=== PATIENT | male | born 1955 | race Caucasian/White ===

== ENCOUNTER 2018-12-29 18:19 | Inpatient (IN) ==
[2018-12-29] MEDS ORDERED: SODIUM CHLORIDE 0.9% 1,000 ML IV STA ×2 (19:32→21:17)
[2018-12-29 19:47] LABS: Basophils # 0.1 10*3/uL (0.0-0.2); Basophils % 0.5 % (0.0-0.8); Eosinophils % 0.2 % (0.00-10.9); Hemoglobin 13.1 GM/DL (14.0-18.0); Immature Granulocytes % 0.4 %; Immature Granulocytes Absolute 0.04 #; Lymphocytes # 2.4 10*3/uL (1.4-4.0); Lymphocytes % 21.7 % (21.2-54.2); Mean Corpuscular HGB Conc 32.8 GM/DL (32-36); Mean Corpuscular Volume 98.3 FL (87-102); Mean Platelet Volume 8.8 FL (9.6-12.0); Neutrophils % 71.2 % (38.7-73.9); Platelet Count 264 T/CUMM (130-400); Red Blood Count 4.07 MC/CUMM (3.8-5.5); Red Cell Distribution Width 13.2 % (9.3-17.3)
[2018-12-29 19:58] LABS: Albumin 3.9 G/DL (3.4-5.0); Bilirubin,Total 0.4 MG/DL (0.2-1.0); Total Protein 7.1 G/DL (6.4-8.3)
[2018-12-29 20:22] LABS: Apearance,Urine CLOUDY (Clear); Bilirubin,Urine Negative (Negative); Blood, Urine Negative (Negative); Glucose,Urine (UA) >=500 mg/dL (Negative); Hyaline Casts,Urine 16 /LPF (0-3); Ketones,Urine 5 mg/dL (Negative); Mucus,Urine Occasional /LPF (Occasional); Nitrite,Urine Negative (Negative); Protein,Urine 30 MG/DL; RBC,Urine 2 /HPF (0-4); Squamous Epithelial Cell,Urine Few /HPF (0-10); Urine Specific Gravity 1.018 (1.001-1.035); WBC,Urine 18 /HPF (0-6)
[2018-12-29 20:23] LABS: Urine Color Dark yellow (Yellow)
[2018-12-29 20:28] LABS: Barbiturates Screen,Urine Negative (Negative); Benzodiazepines Screen,Urine Negative (Negative); Cannabinoid Screen,Urine Negative (Negative); Opiate Screen,Urine Negative (Negative); Phencyclidine Screen,Urine Negative (Negative)
[2018-12-30] MEDS ORDERED: ACETAMINOPHEN 325 MG TABLET PO PRN (02:02)
[2018-12-30] MEDS ORDERED: DEXTROSE 50% 25 GM/50 ML VIAL IV PRN (02:02)
[2018-12-30] MEDS ORDERED: GLUCAGON 1 MG VIAL IM PRN (02:02)
[2018-12-30] MEDS ORDERED: ONDANSETRON 4 MG/2 ML VIAL IV PRN (02:02)
[2018-12-30] MEDS: SODIUM CHLORIDE 0.9% 1,000 ML IV SCH ×3 (02:14→16:42)
[2018-12-30] MEDS: cefTRIAXone 1,000 MG in SYRINGE 1 EACH IV SCH (02:17)
[2018-12-30 04:52] LABS: Basophils # 0.1 10*3/uL (0.0-0.2); Basophils % 0.6 % (0.0-0.8); Eosinophils # 0.1 10*3/uL (0.0-0.87); Hematocrit 40.2 VOL% (42.0-52.0); Immature Granulocytes % 0.3 %; Immature Granulocytes Absolute 0.03 #; Lymphocytes # 3.5 10*3/uL (1.4-4.0); Lymphocytes % 37.2 % (21.2-54.2); Mean Corpuscular HGB Conc 32.3 GM/DL (32-36); Mean Platelet Volume 8.9 FL (9.6-12.0); Monocytes % 8.6 % (1.7-12.7); Neutrophils % 52.3 % (38.7-73.9); Platelet Count 224 T/CUMM (130-400); Red Blood Count 4.06 MC/CUMM (3.8-5.5); Red Cell Distribution Width 13.2 % (9.3-17.3); White Blood Count 9.3 T/CUMM (4-12)
[2018-12-30] MEDS: INSULIN LISPRO 100 UNIT/ML SUBCUT SCH ×5 (05:00→21:17)
[2018-12-30 05:30] LABS: Calcium 8.8 MG/DL (8.5-10.1); Osmolality,Calculated 284.3 MOS/KG (273-304); Thyroid Stimulating Hormone 0.794 uIU/ml (0.358-3.74)
[2018-12-30] MEDS ORDERED: glipiZIDE 10 MG TABLET PO SCH (07:30)
[2018-12-30] MEDS: GABAPENTIN 400 MG CAPSULE PO SCH ×2 (08:59→21:13)
[2018-12-30] MEDS: INSULIN ASPART PROTAMINE/ASPART 70/30 100 UNIT/ML SUBCUT SCH ×2 (08:59→21:13)
[2018-12-31] MEDS: SODIUM CHLORIDE 0.9% 1,000 ML IV SCH (01:52)
[2018-12-31] MEDS: cefTRIAXone 1,000 MG in SYRINGE 1 EACH IV SCH (01:52)
[2018-12-31 04:51] LABS: Basophils # 0.1 10*3/uL (0.0-0.2); Basophils % 0.4 % (0.0-0.8); Eosinophils # 0.1 10*3/uL (0.0-0.87); Eosinophils % 0.5 % (0.00-10.9); Hematocrit 38.8 VOL% (42.0-52.0); Hemoglobin 12.5 GM/DL (14.0-18.0); Immature Granulocytes % 0.4 %; Immature Granulocytes Absolute 0.05 #; Lymphocytes # 2.6 10*3/uL (1.4-4.0); Lymphocytes % 22.2 % (21.2-54.2); Mean Corpuscular HGB Conc 32.2 GM/DL (32-36); Mean Platelet Volume 8.9 FL (9.6-12.0); Monocytes % 5.7 % (1.7-12.7); Neutrophils % 70.8 % (38.7-73.9); Platelet Count 208 T/CUMM (130-400); Red Blood Count 3.92 MC/CUMM (3.8-5.5); Red Cell Distribution Width 13.2 % (9.3-17.3); White Blood Count 11.5 T/CUMM (4-12)
[2018-12-31 05:10] LABS: Calcium 8.4 MG/DL (8.5-10.1)
[2018-12-31] MEDS: INSULIN LISPRO 100 UNIT/ML SUBCUT SCH ×2 (09:02→11:54)
[2018-12-31] MEDS: INSULIN ASPART PROTAMINE/ASPART 70/30 100 UNIT/ML SUBCUT SCH (09:03)
[2018-12-31] MEDS: GABAPENTIN 400 MG CAPSULE PO SCH (09:03)
[2018-12-31 11:37] VITALS: BP 133/63
== END 2018-12-31 15:05 | disposition home or self-care (01) | DRG 683 ==
LOC: N.ED 18:19 → N.EDINP 12-30 01:08 → N.2E 12-30 01:25
PROVIDERS: ADMIT Internal Medicine; ATTEND Internal Medicine

== ENCOUNTER 2019-04-25 14:52 | Inpatient (IN) ==
[2019-04-25 16:52] LABS: Basophils # 0.1 10*3/uL (0.0-0.2); Basophils % 0.5 % (0.0-0.8); Eosinophils % 0.1 % (0.00-10.9); Hematocrit 39.1 VOL% (42.0-52.0); Hemoglobin 12.8 GM/DL (14.0-18.0); Immature Granulocytes % 0.2 %; Immature Granulocytes Absolute 0.02 #; Lymphocytes % 26.9 % (21.2-54.2); Mean Corpuscular HGB Conc 32.7 GM/DL (32-36); Mean Corpuscular Volume 98.7 FL (87-102); Monocytes % 6.6 % (1.7-12.7); Neutrophils % 65.7 % (38.7-73.9); Platelet Count 255 T/CUMM (130-400); Red Blood Count 3.96 MC/CUMM (3.8-5.5); Red Cell Distribution Width 12.9 % (9.3-17.3); White Blood Count 11.3 T/CUMM (4-12)
[2019-04-25 17:12] LABS: Calcium 8.9 MG/DL (8.5-10.1); Osmolality,Calculated 271.2 MOS/KG (273-304); Uric Acid 3.8 MG/DL (3.5-7.2)
[2019-04-25] MEDS ORDERED: CEFTAROLINE 600 MG in SODIUM CHLORIDE 0.9% 100 ML IV STA (18:42)
[2019-04-25] MEDS ORDERED: ACETAMINOPHEN 325 MG TABLET PO PRN (20:30)
[2019-04-25] MEDS ORDERED: DEXTROSE 50% 25 GM/50 ML VIAL IV PRN (20:30)
[2019-04-25] MEDS ORDERED: PROMETHAZINE 25 MG TABLET PO PRN (20:30)
[2019-04-25] MEDS ORDERED: MORPHINE 4 MG/1 ML VIAL IV PRN (20:30)
[2019-04-25] MEDS ORDERED: ONDANSETRON 4 MG/2 ML VIAL IV PRN (20:30)
[2019-04-25] MEDS ORDERED: GLUCAGON 1 MG VIAL IM PRN (20:30)
[2019-04-25] MEDS: DOCUSATE SODIUM 100 MG CAPSULE PO SCH (22:02)
[2019-04-25] MEDS: PIPERACILLIN/TAZOBACTAM 3,375 MG in SODIUM CHLORIDE 0.9% 100 ML IV SCH (22:02)
[2019-04-26] MEDS: INSULIN REGULAR 100 UNIT/ML SUBCUT SCH ×4 (00:46→17:23)
[2019-04-26] MEDS: PIPERACILLIN/TAZOBACTAM 3,375 MG in SODIUM CHLORIDE 0.9% 100 ML IV SCH ×3 (05:32→21:50)
[2019-04-26 07:12] LABS: Basophils # 0.1 10*3/uL (0.0-0.2); Basophils % 0.9 % (0.0-0.8); Eosinophils # 0.1 10*3/uL (0.0-0.87); Hematocrit 36.1 VOL% (42.0-52.0); Hemoglobin 11.9 GM/DL (14.0-18.0); Immature Granulocytes % 0.3 %; Immature Granulocytes Absolute 0.02 #; Lymphocytes # 3.2 10*3/uL (1.4-4.0); Lymphocytes % 40.6 % (21.2-54.2); Mean Corpuscular Volume 98.6 FL (87-102); Monocytes % 10.2 % (1.7-12.7); Platelet Count 223 T/CUMM (130-400); Red Blood Count 3.66 MC/CUMM (3.8-5.5); Red Cell Distribution Width 12.8 % (9.3-17.3); White Blood Count 7.8 T/CUMM (4-12)
[2019-04-26 07:27] LABS: Calcium 8.5 MG/DL (8.5-10.1); Osmolality,Calculated 272.8 MOS/KG (273-304)
[2019-04-26] MEDS: INSULIN ASPART PROTAMINE/ASPART 70/30 100 UNIT/ML SUBCUT SCH ×2 (09:18→17:24)
[2019-04-26] MEDS: DOCUSATE SODIUM 100 MG CAPSULE PO SCH ×2 (09:18→20:17)
[2019-04-26] MEDS: GABAPENTIN 400 MG CAPSULE PO SCH ×2 (09:18→20:21)
[2019-04-26] MEDS: glipiZIDE 10 MG TABLET PO SCH (09:18)
[2019-04-26] MEDS: PANTOPRAZOLE 40 MG TABLET PO SCH (09:19)
[2019-04-27] MEDS: INSULIN REGULAR 100 UNIT/ML SUBCUT SCH ×4 (00:56→17:53)
[2019-04-27] MEDS: PIPERACILLIN/TAZOBACTAM 3,375 MG in SODIUM CHLORIDE 0.9% 100 ML IV SCH (05:07)
[2019-04-27 05:54] LABS: Basophils # 0.1 10*3/uL (0.0-0.2); Basophils % 0.6 % (0.0-0.8); Eosinophils # 0.1 10*3/uL (0.0-0.87); Eosinophils % 0.6 % (0.00-10.9); Hematocrit 36.5 VOL% (42.0-52.0); Immature Granulocytes % 0.2 %; Immature Granulocytes Absolute 0.02 #; Lymphocytes # 3.7 10*3/uL (1.4-4.0); Lymphocytes % 36.5 % (21.2-54.2); Mean Corpuscular HGB Conc 32.9 GM/DL (32-36); Mean Corpuscular Volume 98.4 FL (87-102); Mean Platelet Volume 9.4 FL (9.6-12.0); Monocytes % 9.9 % (1.7-12.7); Neutrophils % 52.2 % (38.7-73.9); Platelet Count 247 T/CUMM (130-400); Red Blood Count 3.71 MC/CUMM (3.8-5.5); Red Cell Distribution Width 12.6 % (9.3-17.3)
[2019-04-27 06:29] LABS: Calcium 8.6 MG/DL (8.5-10.1); Osmolality,Calculated 276.8 MOS/KG (273-304)
[2019-04-27] MEDS ORDERED: VANCOMYCIN INJ 1,000 MG in SODIUM CHLORIDE 0.9% 250 ML IV SCH (08:00)
[2019-04-27] MEDS: INSULIN ASPART PROTAMINE/ASPART 70/30 100 UNIT/ML SUBCUT SCH ×2 (09:05→17:04)
[2019-04-27] MEDS: glipiZIDE 10 MG TABLET PO SCH (09:06)
[2019-04-27] MEDS: PANTOPRAZOLE 40 MG TABLET PO SCH (09:06)
[2019-04-27] MEDS: GABAPENTIN 400 MG CAPSULE PO SCH ×2 (09:06→21:19)
[2019-04-27] MEDS: DOCUSATE SODIUM 100 MG CAPSULE PO SCH ×2 (09:06→21:19)
[2019-04-27] MEDS: VANCOMYCIN INJ 1,250 MG in SODIUM CHLORIDE 0.9% 250 ML IV SCH ×2 (09:08→21:18)
[2019-04-27] MEDS: cefTRIAXone 1,000 MG in SYRINGE 1 EACH IV SCH (09:09)
[2019-04-28] MEDS: INSULIN REGULAR 100 UNIT/ML SUBCUT SCH ×4 (00:13→18:21)
[2019-04-28 05:53] LABS: Basophils # 0.1 10*3/uL (0.0-0.2); Basophils % 0.6 % (0.0-0.8); Eosinophils # 0.1 10*3/uL (0.0-0.87); Eosinophils % 0.7 % (0.00-10.9); Hematocrit 33.4 VOL% (42.0-52.0); Hemoglobin 11.1 GM/DL (14.0-18.0); Immature Granulocytes % 0.2 %; Immature Granulocytes Absolute 0.02 #; Lymphocytes % 33.8 % (21.2-54.2); Mean Corpuscular HGB Conc 33.2 GM/DL (32-36); Mean Corpuscular Volume 97.4 FL (87-102); Mean Platelet Volume 9.3 FL (9.6-12.0); Monocytes % 9.8 % (1.7-12.7); Neutrophils % 54.9 % (38.7-73.9); Platelet Count 221 T/CUMM (130-400); Red Blood Count 3.43 MC/CUMM (3.8-5.5); Red Cell Distribution Width 12.9 % (9.3-17.3); White Blood Count 8.8 T/CUMM (4-12)
[2019-04-28 06:53] LABS: Calcium 8.5 MG/DL (8.5-10.1); Osmolality,Calculated 277.7 MOS/KG (273-304)
[2019-04-28] MEDS: INSULIN ASPART PROTAMINE/ASPART 70/30 100 UNIT/ML SUBCUT SCH ×2 (07:58→17:14)
[2019-04-28] MEDS: cefTRIAXone 1,000 MG in SYRINGE 1 EACH IV SCH (09:25)
[2019-04-28] MEDS: VANCOMYCIN INJ 1,250 MG in SODIUM CHLORIDE 0.9% 250 ML IV SCH ×2 (09:26→23:42)
[2019-04-28] MEDS: glipiZIDE 10 MG TABLET PO SCH (09:44)
[2019-04-28] MEDS: DOCUSATE SODIUM 100 MG CAPSULE PO SCH ×2 (09:45→21:33)
[2019-04-28] MEDS: PANTOPRAZOLE 40 MG TABLET PO SCH (09:45)
[2019-04-28] MEDS: GABAPENTIN 400 MG CAPSULE PO SCH ×2 (09:45→21:33)
[2019-04-28] MEDS: VANCOMYCIN INJ 1,000 MG in SODIUM CHLORIDE 0.9% 250 ML IV SCH (23:51)
[2019-04-29] MEDS: INSULIN REGULAR 100 UNIT/ML SUBCUT SCH ×3 (01:01→13:45)
[2019-04-29 05:54] LABS: Basophils # 0.1 10*3/uL (0.0-0.2); Basophils % 0.9 % (0.0-0.8); Eosinophils # 0.2 10*3/uL (0.0-0.87); Eosinophils % 1.9 % (0.00-10.9); Hematocrit 32.7 VOL% (42.0-52.0); Hemoglobin 10.9 GM/DL (14.0-18.0); Immature Granulocytes % 0.1 %; Immature Granulocytes Absolute 0.01 #; Lymphocytes # 3.3 10*3/uL (1.4-4.0); Lymphocytes % 41.1 % (21.2-54.2); Mean Corpuscular HGB Conc 33.3 GM/DL (32-36); Mean Corpuscular Volume 97.3 FL (87-102); Mean Platelet Volume 9.1 FL (9.6-12.0); Monocytes % 10.3 % (1.7-12.7); Neutrophils % 45.7 % (38.7-73.9); Platelet Count 228 T/CUMM (130-400); Red Blood Count 3.36 MC/CUMM (3.8-5.5); Red Cell Distribution Width 12.7 % (9.3-17.3)
[2019-04-29 06:20] LABS: Calcium 8.7 MG/DL (8.5-10.1); Osmolality,Calculated 281.1 MOS/KG (273-304)
[2019-04-29] MEDS: PANTOPRAZOLE 40 MG TABLET PO SCH (09:50)
[2019-04-29] MEDS: glipiZIDE 10 MG TABLET PO SCH (09:50)
[2019-04-29] MEDS: cefTRIAXone 1,000 MG in SYRINGE 1 EACH IV SCH (09:50)
[2019-04-29] MEDS: INSULIN ASPART PROTAMINE/ASPART 70/30 100 UNIT/ML SUBCUT SCH (09:50)
[2019-04-29] MEDS: DOCUSATE SODIUM 100 MG CAPSULE PO SCH (09:50)
[2019-04-29] MEDS: GABAPENTIN 400 MG CAPSULE PO SCH (09:50)
[2019-04-29] MEDS: VANCOMYCIN INJ 1,000 MG in SODIUM CHLORIDE 0.9% 250 ML IV SCH (09:51)
[2019-04-29 11:19] VITALS: BP 124/62
[2019-04-30] MEDS ORDERED: cefTRIAXone 2,000 MG in SYRINGE 1 EACH IV SCH (09:00)
== END 2019-04-29 15:45 | disposition home health service (06) | DRG 638 ==
LOC: N.ED 14:52 → N.EDINP 19:00 → N.5E 19:38
PROVIDERS: ADMIT Family Medicine; ATTEND Family Medicine

== ENCOUNTER 2019-07-27 12:29 | Observation (INO) ==
[2019-07-27] MEDS ORDERED: SODIUM CHLORIDE 0.9% 1,000 ML IV STA (13:05)
[2019-07-27 13:16] LABS: Basophils # 0.1 10*3/uL (0.0-0.2); Basophils % 0.5 % (0.0-0.8); Eosinophils % 0.2 % (0.00-10.9); Hematocrit 42.6 VOL% (42.0-52.0); Immature Granulocytes % 0.4 %; Immature Granulocytes Absolute 0.04 #; Lymphocytes # 2.4 10*3/uL (1.4-4.0); Lymphocytes % 24.1 % (21.2-54.2); Mean Corpuscular HGB Conc 32.9 GM/DL (32-36); Mean Corpuscular Volume 95.9 FL (87-102); Monocytes % 7.4 % (1.7-12.7); Neutrophils % 67.4 % (38.7-73.9); Platelet Count 287 T/CUMM (130-400); Red Blood Count 4.44 MC/CUMM (3.8-5.5); Red Cell Distribution Width 13.1 % (9.3-17.3); White Blood Count 9.9 T/CUMM (4-12)
[2019-07-27 13:31] LABS: Albumin 3.7 G/DL (3.4-5.0); Bilirubin,Total 0.4 MG/DL (0.2-1.0); Calcium 9.3 MG/DL (8.5-10.1); Osmolality,Calculated 271.7 MOS/KG (273-304); Total Protein 7.5 G/DL (6.4-8.3)
[2019-07-27] MEDS ORDERED: MEROPENEM 1,000 MG in SODIUM CHLORIDE 0.9% 100 ML IV STA (15:16)
[2019-07-27] MEDS ORDERED: GLUCAGON 1 MG VIAL IM PRN (15:25)
[2019-07-27] MEDS ORDERED: ONDANSETRON 4 MG/2 ML VIAL IV PRN (15:25)
[2019-07-27] MEDS ORDERED: DEXTROSE 10% 25 GM/250 ML BAG IV PRN (15:25)
[2019-07-27] MEDS ORDERED: ACETAMINOPHEN 325 MG TABLET PO PRN (15:25)
[2019-07-27 15:30] LABS: Apearance,Urine CLEAR (Clear); Bilirubin,Urine Negative (Negative); Blood, Urine Small mg/dL (Negative); Glucose,Urine (UA) >=500 mg/dL (Negative); Ketones,Urine Negative (Negative); Nitrite,Urine Negative (Negative); Protein,Urine Negative; RBC,Urine 1 /HPF (0-4); Sperm,Urine Occasional /HPF (Negative); Squamous Epithelial Cell,Urine Occasional /HPF (0-10); Urine Color Straw (Yellow); Urine Specific Gravity 1.007 (1.001-1.035); Urine Urobilinogen < 2.0 EU/DL (0.2-1.0); WBC,Urine 1 /HPF (0-6)
[2019-07-27] MEDS ORDERED: oxyCODONE/ACETAMINOPHEN 5-325 MG TABLET PO PRN (16:12)
[2019-07-27] MEDS ORDERED: ALBUTEROL/IPRATROPIUM 3 ML NEB RESP TX PRN (17:32)
[2019-07-27] MEDS ORDERED: hydrALAZINE 20 MG/1 ML VIAL IV PRN (17:32)
[2019-07-27] MEDS: INSULIN REGULAR 100 UNIT/ML SUBCUT SCH ×2 (17:58→22:27)
[2019-07-27] MEDS ORDERED: INFLUENZA VIRUS VACCINE 0.5 ML SYRINGE IM ONE (18:16)
[2019-07-27] MEDS: ENOXAPARIN 40 MG/0.4 ML SYRINGE SUBCUT SCH (22:33)
[2019-07-27] MEDS: MEROPENEM 500 MG in SODIUM CHLORIDE 0.9% 100 ML IV SCH (23:56)
[2019-07-28] MEDS: MEROPENEM 500 MG in SODIUM CHLORIDE 0.9% 100 ML IV SCH ×2 (05:38→10:31)
[2019-07-28 07:24] LABS: Basophils # 0.1 10*3/uL (0.0-0.2); Basophils % 0.7 % (0.0-0.8); Eosinophils % 0.2 % (0.00-10.9); Hematocrit 35.7 VOL% (42.0-52.0); Hemoglobin 12.1 GM/DL (14.0-18.0); Immature Granulocytes % 0.2 %; Immature Granulocytes Absolute 0.02 #; Lymphocytes % 33.9 % (21.2-54.2); Mean Corpuscular HGB Conc 33.9 GM/DL (32-36); Mean Corpuscular Volume 93.2 FL (87-102); Mean Platelet Volume 9.1 FL (9.6-12.0); Red Blood Count 3.83 MC/CUMM (3.8-5.5); Red Cell Distribution Width 13.2 % (9.3-17.3); White Blood Count 8.9 T/CUMM (4-12)
[2019-07-28 07:27] LABS: Platelet Count 227 T/CUMM (130-400)
[2019-07-28 07:33] LABS: Albumin 2.8 G/DL (3.4-5.0); Bilirubin,Total 0.6 MG/DL (0.2-1.0); Calcium 8.2 MG/DL (8.5-10.1); Total Protein 6.3 G/DL (6.4-8.3)
[2019-07-28] MEDS: INSULIN REGULAR 100 UNIT/ML SUBCUT SCH ×4 (07:46→21:39)
[2019-07-28] MEDS: PANTOPRAZOLE 40 MG TABLET PO SCH (09:50)
[2019-07-28] MEDS: PIPERACILLIN/TAZOBACTAM 3,375 MG in SODIUM CHLORIDE 0.9% 100 ML IV SCH ×2 (13:44→21:44)
[2019-07-28] MEDS: ENOXAPARIN 40 MG/0.4 ML SYRINGE SUBCUT SCH (21:39)
[2019-07-29] MEDS: PIPERACILLIN/TAZOBACTAM 3,375 MG in SODIUM CHLORIDE 0.9% 100 ML IV SCH ×2 (06:37→15:47)
[2019-07-29 06:40] LABS: Basophils # 0.1 10*3/uL (0.0-0.2); Basophils % 0.9 % (0.0-0.8); Eosinophils # 0.1 10*3/uL (0.0-0.87); Eosinophils % 0.6 % (0.00-10.9); Hematocrit 39.5 VOL% (42.0-52.0); Hemoglobin 13.2 GM/DL (14.0-18.0); Immature Granulocytes % 0.3 %; Immature Granulocytes Absolute 0.03 #; Lymphocytes # 4.4 10*3/uL (1.4-4.0); Lymphocytes % 46.7 % (21.2-54.2); Mean Corpuscular HGB Conc 33.4 GM/DL (32-36); Mean Corpuscular Volume 94.3 FL (87-102); Mean Platelet Volume 9.3 FL (9.6-12.0); Monocytes % 8.3 % (1.7-12.7); Neutrophils % 43.2 % (38.7-73.9); Platelet Count 271 T/CUMM (130-400); Red Blood Count 4.19 MC/CUMM (3.8-5.5); Red Cell Distribution Width 13.2 % (9.3-17.3); White Blood Count 9.3 T/CUMM (4-12)
[2019-07-29 06:53] LABS: Calcium 9.2 MG/DL (8.5-10.1)
[2019-07-29 06:55] LABS: Risk Ratio 2.61
[2019-07-29 07:42] VITALS: BP 127/63
[2019-07-29] MEDS: PANTOPRAZOLE 40 MG TABLET PO SCH (10:28)
[2019-07-29] MEDS ORDERED: REGADENOSON 0.4 MG/5 ML SYRINGE IV ONE (10:44)
[2019-07-29] MEDS ORDERED: POTASSIUM CHLORIDE 20 MEQ TABLET PO ONE (11:02)
[2019-07-29] MEDS ORDERED: MAGNESIUM SULF RIDER 2 GM in PREMIX 1 EACH IV ONE (11:02)
[2019-07-29] MEDS: INSULIN REGULAR 100 UNIT/ML SUBCUT SCH ×2 (12:47→12:48)
[2019-07-29] MEDS ORDERED: glipiZIDE 10 MG TABLET PO SCH (16:30)
[2019-07-29] MEDS ORDERED: ATORVASTATIN 80 MG TABLET PO SCH (21:00)
[2019-07-29] MEDS ORDERED: GABAPENTIN 400 MG CAPSULE PO SCH (21:00)
[2019-07-30] MEDS ORDERED: INSULIN NPH 100 UNIT/ML SUBCUT SCH (08:00)
[2019-07-30] MEDS ORDERED: ASPIRIN EC 81 MG TABLET PO SCH (09:00)
== END 2019-07-29 16:50 | disposition home or self-care (01) ==
LOC: N.ED 12:29 → N.EDINP 12:29 → N.5E 16:07
PROVIDERS: ADMIT Internal Medicine; ATTEND Internal Medicine

== ENCOUNTER 2020-09-09 14:33 | Observation (INO) ==
[2020-09-09 16:44] LABS: Basophils # 0.1 10*3/uL (0.0-0.2); Basophils % 0.6 % (0.0-0.8); Eosinophils % 0.3 % (0.00-10.9); Hematocrit 44.9 VOL% (42.0-52.0); Immature Granulocytes % 0.5 %; Immature Granulocytes Absolute 0.05 #; Lymphocytes # 3.3 10*3/uL (1.4-4.0); Lymphocytes % 31.2 % (21.2-54.2); Mean Corpuscular HGB Conc 33.4 GM/DL (32-36); Mean Platelet Volume 9.2 FL (9.6-12.0); Monocytes % 6.9 % (1.7-12.7); Neutrophils % 60.5 % (38.7-73.9); Platelet Count 262 T/CUMM (130-400); Red Blood Count 4.63 MC/CUMM (3.8-5.5); Red Cell Distribution Width 12.9 % (9.3-17.3); White Blood Count 10.6 T/CUMM (4-12)
[2020-09-09 16:55] LABS: Albumin 3.8 G/DL (3.4-5.0); Bilirubin,Total 0.6 MG/DL (0.2-1.0); Calcium 9.4 MG/DL (8.5-10.1); Osmolality,Calculated 270.2 MOS/KG (273-304); Potassium 4.2 MMOL/L (3.5-5.1); Total Protein 7.7 G/DL (6.4-8.2)
[2020-09-09 17:18] LABS: Bilirubin,Urine Negative (Negative); Blood, Urine Negative (Negative); Glucose,Urine (UA) >=500 mg/dL (Negative); Ketones,Urine Negative (Negative); Nitrite,Urine Negative (Negative); Protein,Urine Negative; RBC,Urine 5 /HPF (0-4); Squamous Epithelial Cell,Urine Occasional /HPF (0-10); Urine Appearance CLEAR (Clear); Urine Color Yellow (Yellow); Urine Urobilinogen < 2.0 EU/DL (0.2-1.0); WBC,Urine 12 /HPF (0-6)
[2020-09-09 17:25] LABS: Hypochromasia 1+; Lymphocytes 31 % (20-55); Macrocytosis 1+; Reactive Lymphocytes 1+; Segmented Neutrophils 64 % (50-85); Total Cells Counted 100
[2020-09-09 17:26] LABS: Platelet Estimate Normal
[2020-09-09] MEDS ORDERED: cefTRIAXone 1,000 MG in SODIUM CHLORIDE 0.9% 100 ML IV STA (17:56)
[2020-09-09] MEDS ORDERED: SODIUM CHLORIDE 0.9% 1,000 ML IV STA (17:56)
[2020-09-09] MEDS ORDERED: GLUCAGON 1 MG VIAL IM PRN ×2 (18:55)
[2020-09-09] MEDS ORDERED: DEXTROSE 50% 25 GM/50 ML VIAL IV PRN ×2 (18:55)
[2020-09-09] MEDS ORDERED: ONDANSETRON 4 MG/2 ML VIAL IV PRN (18:55)
[2020-09-09] MEDS ORDERED: ACETAMINOPHEN 325 MG TABLET PO PRN (18:55)
[2020-09-09] MEDS: SODIUM CHLORIDE 0.9% 1,000 ML IV SCH (20:08)
[2020-09-09] MEDS ORDERED: ENOXAPARIN 40 MG/0.4 ML SYRINGE SUBCUT SCH (21:00)
[2020-09-09] MEDS: INSULIN REGULAR 100 UNIT/ML SUBCUT SCH (21:14)
[2020-09-09] MEDS: MECLIZINE 25 MG TABLET PO SCH (21:32)
[2020-09-09] MEDS: glipiZIDE 10 MG TABLET PO SCH (21:32)
[2020-09-09] MEDS: AMPICILLIN 500 MG CAPSULE PO SCH (21:58)
[2020-09-10] MEDS: SODIUM CHLORIDE 0.9% 1,000 ML IV SCH ×2 (05:03→12:03)
[2020-09-10 05:29] LABS: Basophils # 0.1 10*3/uL (0.0-0.2); Basophils % 0.8 % (0.0-0.8); Eosinophils # 0.1 10*3/uL (0.0-0.87); Eosinophils % 1.1 % (0.00-10.9); Hemoglobin 13.5 GM/DL (14.0-18.0); Immature Granulocytes % 0.3 %; Immature Granulocytes Absolute 0.03 #; Lymphocytes # 4.4 10*3/uL (1.4-4.0); Lymphocytes % 47.6 % (21.2-54.2); Mean Corpuscular HGB Conc 33.8 GM/DL (32-36); Mean Corpuscular Volume 96.6 FL (87-102); Mean Platelet Volume 9.1 FL (9.6-12.0); Monocytes % 9.1 % (1.7-12.7); Neutrophils % 41.1 % (38.7-73.9); Platelet Count 241 T/CUMM (130-400); Red Blood Count 4.14 MC/CUMM (3.8-5.5); Red Cell Distribution Width 12.6 % (9.3-17.3); White Blood Count 9.3 T/CUMM (4-12)
[2020-09-10 05:42] LABS: Calcium 8.4 MG/DL (8.5-10.1); Osmolality,Calculated 275.4 MOS/KG (273-304); Potassium 3.2 MMOL/L (3.5-5.1); VLDL CHOLESTEROL 26.2 MG/DL
[2020-09-10 05:52] LABS: Hypochromasia 1+; Microcytosis 1+; Platelet Estimate Adequate
[2020-09-10] MEDS ORDERED: POTASSIUM CHLORIDE RIDER 10 MEQ in PREMIX 1 EACH IV PRN (07:16)
[2020-09-10] MEDS: INSULIN REGULAR 100 UNIT/ML SUBCUT SCH ×2 (07:36→11:50)
[2020-09-10] MEDS: POTASSIUM CHLORIDE 20 MEQ TABLET PO PRN ×2 (08:55→11:35)
[2020-09-10] MEDS: AMPICILLIN 500 MG CAPSULE PO SCH (08:56)
[2020-09-10] MEDS: glipiZIDE 10 MG TABLET PO SCH (08:56)
[2020-09-10] MEDS: MECLIZINE 25 MG TABLET PO SCH (08:56)
[2020-09-10] MEDS ORDERED: FLUTICASONE 50 MCG NASAL SPRAY 16 GM BOTTLE BOTH NARES SCH (09:00)
[2020-09-10 12:10] VITALS: BP 148/81
== END 2020-09-10 12:30 | disposition home or self-care (01) ==
LOC: N.EDINP 14:33 → N.ED 14:33 → N.EDINP 20:22 → N.4E 21:03
PROVIDERS: ADMIT Family Medicine; ATTEND Family Medicine

== ENCOUNTER 2021-11-12 21:37 | Observation (INO) ==
[2021-11-12] MEDS ORDERED: SODIUM CHLORIDE 0.9% 1,000 ML IV STA (22:02)
[2021-11-12 22:27] LABS: Basophils % 0.3 % (0.0-0.8); Eosinophils % 0.3 % (0.00-10.9); Hemoglobin 11.8 GM/DL (14.0-18.0); Immature Granulocytes % 0.5 %; Immature Granulocytes Absolute 0.05 #; Lymphocytes # 2.2 10*3/uL (1.4-4.0); Lymphocytes % 19.6 % (21.2-54.2); Mean Corpuscular HGB Conc 33.7 GM/DL (32-36); Mean Corpuscular Volume 97.5 FL (87-102); Mean Platelet Volume 9.1 FL (9.6-12.0); Monocytes % 8.6 % (1.7-12.7); Neutrophils % 70.7 % (38.7-73.9); Platelet Count 242 T/CUMM (130-400); Red Blood Count 3.59 MC/CUMM (3.8-5.5); White Blood Count 11.1 T/CUMM (4-12)
[2021-11-12 22:46] LABS: Alanine Aminotransferase 29 U/L (16-61); Albumin 2.8 G/DL (3.4-5.0); Alkaline Phosphatase 128 U/L (45-117); Amylase 20 U/L (25-115); Aspartate Amino Transferase 17 U/L (0-37); Blood Urea Nitrogen 19 MG/DL (7-18); Calcium 9.2 MG/DL (8.5-10.1); Carbon Dioxide 24 MMOL/L (21-32); Chloride 102 MMOL/L (98-107); Glucose 189 MG/DL (74-106); Potassium 3.3 MMOL/L (3.5-5.1); Sodium 136 MMOL/L (136-145); Total Protein 6.8 G/DL (6.4-8.2)
[2021-11-12] MEDS ORDERED: MAGNESIUM SULF RIDER 2 GM/50 ML PREMIX IV STA (22:59)
[2021-11-12] MEDS ORDERED: POTASSIUM CHLORIDE 20 MEQ TABLET PO STA (22:59)
[2021-11-12] MEDS ORDERED: ONDANSETRON 4 MG/2 ML VIAL IV STA (22:59)
[2021-11-13] MEDS ORDERED: MORPHINE 2 MG/1 ML SYRINGE IV STA (02:06)
[2021-11-13 02:25] LABS: Glucose,Urine (UA) >=1000 mg/dL (Negative); Hyaline Casts,Urine 1 /LPF (0-3); Ketones,Urine Negative (Negative); Mucus,Urine Occasional /LPF (Occasional); Protein,Urine Negative (Negative); RBC,Urine 1 /HPF (0-4); Squamous Epithelial Cell,Urine Occasional /HPF (0-10); Urine Appearance Clear (Clear); Urine Color Yellow (Yellow); Urine pH 5.5 (4.5-8.0)
[2021-11-13 02:26] LABS: Bilirubin,Urine Negative (Negative); Blood, Urine Trace mg/dL (Negative); Nitrite,Urine Negative (Negative)
[2021-11-13] MEDS ORDERED: MAGNESIUM SULF RIDER 2 GM/50 ML PREMIX IV PRN (03:01)
[2021-11-13] MEDS ORDERED: MAGNESIUM SULF RIDER 4 GM/100 ML PREMIX IV PRN (03:01)
[2021-11-13] MEDS ORDERED: GLUCAGON 1 MG VIAL IM PRN (03:01)
[2021-11-13] MEDS ORDERED: SIMETHICONE CHEW 125 MG TABLET PO PRN (03:01)
[2021-11-13] MEDS ORDERED: ONDANSETRON 4 MG/2 ML VIAL IV PRN (03:01)
[2021-11-13] MEDS ORDERED: ACETAMINOPHEN 325 MG TABLET PO PRN (03:01)
[2021-11-13] MEDS ORDERED: POTASSIUM CHLORIDE RIDER 10 MEQ/100 ML PREMIX IV PRN (03:01)
[2021-11-13] MEDS ORDERED: MIDODRINE 5 MG TABLET PO SCH (03:13)
[2021-11-13] MEDS ORDERED: DEXTROSE 10% 250 ML BAG IV PRN (03:27)
[2021-11-13] MEDS ORDERED: BISACODYL 10 MG SUPP RECTAL ONE (04:00)
[2021-11-13] MEDS: SODIUM CHLORIDE 0.9% 1,000 ML IV SCH ×2 (04:00→15:00)
[2021-11-13 06:39] LABS: Basophils % 0.3 % (0.0-0.8); Eosinophils % 0.3 % (0.00-10.9); Hematocrit 35.1 VOL% (42.0-52.0); Hemoglobin 11.7 GM/DL (14.0-18.0); Immature Granulocytes % 0.5 %; Immature Granulocytes Absolute 0.06 #; Lymphocytes # 3.2 10*3/uL (1.4-4.0); Lymphocytes % 28.7 % (21.2-54.2); Mean Corpuscular HGB Conc 33.3 GM/DL (32-36); Mean Corpuscular Volume 98.9 FL (87-102); Mean Platelet Volume 8.8 FL (9.6-12.0); Monocytes % 8.9 % (1.7-12.7); Neutrophils % 61.3 % (38.7-73.9); Platelet Count 236 T/CUMM (130-400); Red Blood Count 3.55 MC/CUMM (3.8-5.5); Red Cell Distribution Width 13.1 % (9.3-17.3)
[2021-11-13 07:02] LABS: Calcium 8.9 MG/DL (8.5-10.1); Potassium 4.2 MMOL/L (3.5-5.1)
[2021-11-13 07:06] LABS: Lymphocytes 27 % (20-55); Total Cells Counted 100
[2021-11-13 07:07] LABS: Platelet Estimate Adequate
[2021-11-13] MEDS: ENOXAPARIN 40 MG/0.4 ML SYRINGE SUBCUT SCH (07:10)
[2021-11-13] MEDS: INSULIN REGULAR 100 UNIT/ML SUBCUT SCH ×4 (08:51→20:17)
[2021-11-13] MEDS: POTASSIUM CHLORIDE 20 MEQ TABLET PO SCH (09:42)
[2021-11-13] MEDS: DOCUSATE SODIUM 100 MG CAPSULE PO SCH ×2 (09:42→20:25)
[2021-11-13] MEDS: MIDODRINE 5 MG TABLET PO SCH ×4 (09:43→18:56)
[2021-11-13] MEDS: PANTOPRAZOLE 40 MG TABLET PO SCH (09:43)
[2021-11-13] MEDS: MAGNESIUM OXIDE 400 MG TABLET PO SCH ×2 (09:43→20:25)
[2021-11-13] MEDS: POLYETHYLENE GLYCOL POWDER 17 GM PACK PO SCH (09:43)
[2021-11-13 15:00] LABS: Calcium 8.8 MG/DL (8.5-10.1); Osmolality,Calculated 272.1 MOS/KG (273-304); Potassium 3.8 MMOL/L (3.5-5.1)
[2021-11-14] MEDS: INSULIN REGULAR 100 UNIT/ML SUBCUT SCH ×2 (08:21→11:44)
[2021-11-14] MEDS: DOCUSATE SODIUM 100 MG CAPSULE PO SCH (08:22)
[2021-11-14] MEDS: ENOXAPARIN 40 MG/0.4 ML SYRINGE SUBCUT SCH (08:22)
[2021-11-14] MEDS: MAGNESIUM OXIDE 400 MG TABLET PO SCH (08:22)
[2021-11-14] MEDS: PANTOPRAZOLE 40 MG TABLET PO SCH (08:22)
[2021-11-14] MEDS: POTASSIUM CHLORIDE 20 MEQ TABLET PO SCH (08:22)
[2021-11-14] MEDS: MIDODRINE 5 MG TABLET PO SCH ×2 (08:22→12:21)
[2021-11-14] MEDS: POLYETHYLENE GLYCOL POWDER 17 GM PACK PO SCH (08:22)
[2021-11-14 15:27] VITALS: BP 117/49
== END 2021-11-14 16:14 | disposition home or self-care (01) ==
LOC: N.EDINP 21:37 → N.ED 21:37 → SUATTDRO 11-13 09:01 → N.EDINP 11-13 14:05 → N.3E 11-13 14:10 → N.TELES 11-13 23:56
PROVIDERS: ADMIT Internal Medicine; ATTEND Internal Medicine

== ENCOUNTER 2021-12-30 14:19 | Inpatient (IN) ==
[2021-12-30] MEDS ORDERED: SODIUM CHLORIDE 0.9% 1,000 ML IV STA (15:14)
[2021-12-30] MEDS ORDERED: ONDANSETRON 4 MG/2 ML VIAL IV STA (15:14)
[2021-12-30 15:19] LABS: Basophils % 0.5 % (0.0-0.8); Eosinophils % 0.3 % (0.00-10.9); Hemoglobin 13.2 GM/DL (14.0-18.0); Immature Granulocytes % 0.5 %; Immature Granulocytes Absolute 0.04 #; Lymphocytes # 1.9 10*3/uL (1.4-4.0); Lymphocytes % 24.5 % (21.2-54.2); Mean Corpuscular HGB Conc 33.8 GM/DL (32-36); Mean Corpuscular Volume 95.1 FL (87-102); Mean Platelet Volume 9.2 FL (9.6-12.0); Monocytes # 0.4 10*3/uL (0.11-0.8); Monocytes % 5.4 % (1.7-12.7); Neutrophils % 68.8 % (38.7-73.9); Platelet Count 196 T/CUMM (130-400); Red Cell Distribution Width 14.1 % (9.3-17.3); White Blood Count 7.6 T/CUMM (4-12)
[2021-12-30 15:31] LABS: Bilirubin,Total 0.6 MG/DL (0.20-1.00); Calcium 9.3 MG/DL (8.5-10.1); Osmolality,Calculated 277.8 MOS/KG (273-304); Potassium 3.4 MMOL/L (3.5-5.1); Total Protein 6.6 G/DL (6.4-8.2)
[2021-12-30] MEDS ORDERED: diphenhydrAMINE 50 MG/1 ML VIAL ONE (15:34)
[2021-12-30] MEDS ORDERED: diphenhydrAMINE 50 MG/1 ML VIAL IV STA (15:36)
[2021-12-30 16:04] LABS: Hyaline Casts,Urine 3 /LPF (0-3); Mucus,Urine Occasional /LPF (Occasional); Squamous Epithelial Cell,Urine Occasional /HPF (0-10)
[2021-12-30 16:05] LABS: Bilirubin,Urine Negative (Negative); Blood, Urine Negative (Negative); Glucose,Urine (UA) 100 mg/dL (Negative); Ketones,Urine Trace mg/dL (Negative); Nitrite,Urine Negative (Negative); Protein,Urine Negative (Negative); Urine Appearance Clear (Clear); Urine Color Yellow (Yellow); Urine Specific Gravity 1.015 (1.001-1.035)
[2021-12-30] MEDS ORDERED: cefTRIAXone 1,000 MG in SODIUM CHLORIDE 0.9% 100 ML IV STA (17:22)
[2021-12-30] MEDS ORDERED: hydrALAZINE 20 MG/1 ML VIAL IV PRN (18:29)
[2021-12-30] MEDS ORDERED: PROMETHAZINE 25 MG/1 ML VIAL IM PRN (18:29)
[2021-12-30] MEDS ORDERED: GLUCAGON 1 MG VIAL IM PRN (18:29)
[2021-12-30] MEDS ORDERED: DEXTROSE 10% 250 ML BAG IV PRN (18:46)
[2021-12-30] MEDS ORDERED: diphenhydrAMINE 50 MG/1 ML VIAL IV PRN (18:51)
[2021-12-30] MEDS: INSULIN LISPRO 100 UNIT/ML SUBCUT SCH (22:05)
[2021-12-30] MEDS: SODIUM CHLOR 0.9% KCL 20 MEQ 20 MEQ/1,000 ML BAG IV SCH (22:48)
[2021-12-31] MEDS: MELATONIN 3 MG TABLET PO PRN (00:06)
[2021-12-31 06:29] LABS: Basophils # 0.1 10*3/uL (0.0-0.2); Basophils % 0.7 % (0.0-0.8); Eosinophils # 0.1 10*3/uL (0.0-0.87); Eosinophils % 1.2 % (0.00-10.9); Hematocrit 37.2 VOL% (42.0-52.0); Hemoglobin 12.4 GM/DL (14.0-18.0); Immature Granulocytes % 0.2 %; Immature Granulocytes Absolute 0.02 #; Lymphocytes % 46.8 % (21.2-54.2); Mean Corpuscular HGB Conc 33.3 GM/DL (32-36); Mean Corpuscular Volume 96.1 FL (87-102); Mean Platelet Volume 9.3 FL (9.6-12.0); Monocytes # 0.7 10*3/uL (0.11-0.8); Monocytes % 7.8 % (1.7-12.7); Neutrophils % 43.3 % (38.7-73.9); Platelet Count 183 T/CUMM (130-400); Red Blood Count 3.87 MC/CUMM (3.8-5.5); Red Cell Distribution Width 14.1 % (9.3-17.3); White Blood Count 8.5 T/CUMM (4-12)
[2021-12-31 06:50] LABS: Calcium 8.6 MG/DL (8.5-10.1); Osmolality,Calculated 281.1 MOS/KG (273-304); Potassium 3.5 MMOL/L (3.5-5.1); Risk Ratio 3.27; Thyroid Stimulating Hormone 1.73 uIU/ml (0.358-3.74); VLDL Cholesterol 17.6 MG/DL
[2021-12-31] MEDS: SODIUM CHLOR 0.9% KCL 20 MEQ 20 MEQ/1,000 ML BAG IV SCH ×4 (07:28→21:49)
[2021-12-31] MEDS: INSULIN LISPRO 100 UNIT/ML SUBCUT SCH ×4 (08:13→21:48)
[2021-12-31] MEDS: NICOTINE 14 MG/24 HR PATCH TRANSDERM SCH (09:20)
[2021-12-31] MEDS: PANTOPRAZOLE 40 MG VIAL IV SCH (09:21)
[2021-12-31] MEDS: FLUTICASONE 50 MCG NASAL SPRAY 16 GM BOTTLE BOTH NARES SCH (10:07)
[2021-12-31 10:12] LABS: PT Patient Result 11.4 SECS (10.1-12.1)
[2021-12-31] MEDS ORDERED: MAGNESIUM SULF RIDER 2 GM/50 ML PREMIX IV ONE (11:00)
[2021-12-31] MEDS: NYSTATIN 500,000 UNIT/5 ML UDCUP SWISH/SWAL SCH ×3 (12:46→21:47)
[2021-12-31] MEDS ORDERED: cefTRIAXone 1,000 MG in SODIUM CHLORIDE 0.9% 100 ML IV SCH (21:00)
[2022-01-01] MEDS: SODIUM CHLOR 0.9% KCL 20 MEQ 20 MEQ/1,000 ML BAG IV SCH ×2 (04:04→20:29)
[2022-01-01 05:43] LABS: Basophils % 0.5 % (0.0-0.8); Eosinophils # 0.1 10*3/uL (0.0-0.87); Eosinophils % 0.9 % (0.00-10.9); Hemoglobin 12.7 GM/DL (14.0-18.0); Immature Granulocytes % 0.1 %; Immature Granulocytes Absolute 0.01 #; Lymphocytes # 3.3 10*3/uL (1.4-4.0); Lymphocytes % 43.6 % (21.2-54.2); Mean Corpuscular HGB Conc 33.4 GM/DL (32-36); Mean Corpuscular Volume 94.8 FL (87-102); Mean Platelet Volume 9.4 FL (9.6-12.0); Monocytes # 0.6 10*3/uL (0.11-0.8); Monocytes % 7.6 % (1.7-12.7); Neutrophils % 47.3 % (38.7-73.9); Platelet Count 182 T/CUMM (130-400); Red Blood Count 4.01 MC/CUMM (3.8-5.5); Red Cell Distribution Width 14.1 % (9.3-17.3); White Blood Count 7.5 T/CUMM (4-12)
[2022-01-01 06:04] LABS: Albumin 2.7 G/DL (3.4-5.0); Bilirubin,Total 0.5 MG/DL (0.20-1.00); Osmolality,Calculated 276.4 MOS/KG (273-304); Potassium 3.3 MMOL/L (3.5-5.1)
[2022-01-01] MEDS ORDERED: POTASSIUM CHLORIDE RIDER 10 MEQ/100 ML PREMIX IV PRN (07:11)
[2022-01-01] MEDS: INSULIN LISPRO 100 UNIT/ML SUBCUT SCH ×4 (07:50→21:31)
[2022-01-01] MEDS: LACTATED RINGERS 1,000 ML IV SCH (08:24)
[2022-01-01] MEDS ORDERED: MAGNESIUM SULF RIDER 4 GM/100 ML PREMIX IV ONE (08:40)
[2022-01-01] MEDS ORDERED: LIDOCAINE 2% 5 ML VIAL ONE (09:27)
[2022-01-01] MEDS ORDERED: propofoL 200 MG/20 ML VIAL IV ONE (09:27)
[2022-01-01] MEDS ORDERED: fentaNYL 100 MCG/2 ML VIAL ONE (09:29)
[2022-01-01] MEDS ORDERED: ePHEDrine 50 MG/ML VIAL ONE (09:39)
[2022-01-01] MEDS ORDERED: fentaNYL 100 MCG/2 ML VIAL IV ONE (09:55)
[2022-01-01] MEDS: NICOTINE 14 MG/24 HR PATCH TRANSDERM SCH (11:24)
[2022-01-01] MEDS: PANTOPRAZOLE 40 MG VIAL IV SCH ×3 (11:24→21:30)
[2022-01-01] MEDS: NYSTATIN 500,000 UNIT/5 ML UDCUP SWISH/SWAL SCH ×4 (11:25→21:30)
[2022-01-01] MEDS: FLUTICASONE 50 MCG NASAL SPRAY 16 GM BOTTLE BOTH NARES SCH (12:34)
[2022-01-01] MEDS: HYDROmorphone 1 MG/1 ML SYRINGE IV PRN ×2 (17:34→22:01)
[2022-01-02] MEDS: SODIUM CHLOR 0.9% KCL 20 MEQ 20 MEQ/1,000 ML BAG IV SCH ×3 (03:30→11:26)
[2022-01-02 06:34] LABS: Basophils % 0.3 % (0.0-0.8); Eosinophils # 0.1 10*3/uL (0.0-0.87); Eosinophils % 0.9 % (0.00-10.9); Hematocrit 34.8 VOL% (42.0-52.0); Hemoglobin 11.7 GM/DL (14.0-18.0); Immature Granulocytes % 0.3 %; Immature Granulocytes Absolute 0.03 #; Lymphocytes # 2.9 10*3/uL (1.4-4.0); Lymphocytes % 32.3 % (21.2-54.2); Mean Corpuscular HGB Conc 33.6 GM/DL (32-36); Mean Corpuscular Volume 96.1 FL (87-102); Mean Platelet Volume 9.8 FL (9.6-12.0); Monocytes # 0.6 10*3/uL (0.11-0.8); Monocytes % 7.1 % (1.7-12.7); Neutrophils % 59.1 % (38.7-73.9); Platelet Count 153 T/CUMM (130-400); Red Blood Count 3.62 MC/CUMM (3.8-5.5); Red Cell Distribution Width 14.4 % (9.3-17.3); White Blood Count 8.9 T/CUMM (4-12)
[2022-01-02 06:53] LABS: Osmolality,Calculated 279.5 MOS/KG (273-304); Phosphorous 2.5 MG/DL (2.5-4.9); Potassium 3.6 MMOL/L (3.5-5.1)
[2022-01-02 06:56] LABS: Albumin 2.5 G/DL (3.4-5.0); Bilirubin,Total 0.4 MG/DL (0.20-1.00); Osmolality,Calculated 280.5 MOS/KG (273-304); Potassium 3.6 MMOL/L (3.5-5.1); Total Protein 5.8 G/DL (6.4-8.2)
[2022-01-02] MEDS: INSULIN LISPRO 100 UNIT/ML SUBCUT SCH ×4 (07:10→21:46)
[2022-01-02] MEDS: LACTATED RINGERS 1,000 ML IV SCH (07:22)
[2022-01-02] MEDS: HYDROmorphone 1 MG/1 ML SYRINGE IV PRN (09:28)
[2022-01-02] MEDS: PANTOPRAZOLE 40 MG VIAL IV SCH ×2 (09:30→21:46)
[2022-01-02] MEDS: NICOTINE 14 MG/24 HR PATCH TRANSDERM SCH (09:36)
[2022-01-02] MEDS: FLUTICASONE 50 MCG NASAL SPRAY 16 GM BOTTLE BOTH NARES SCH (09:39)
[2022-01-02] MEDS: NYSTATIN 500,000 UNIT/5 ML UDCUP SWISH/SWAL SCH ×4 (09:39→21:46)
[2022-01-02] MEDS: METOCLOPRAMIDE 10 MG/2 ML VIAL IV SCH ×3 (11:28→23:33)
[2022-01-02] MEDS: FAMOTIDINE 20 MG TABLET PO SCH (13:47)
[2022-01-02] MEDS: DEXAMETHASONE INJ 10 MG in SODIUM CHLORIDE 0.9% 50 ML IV SCH (13:55)
[2022-01-02] MEDS ORDERED: diphenhydrAMINE CAP 50 MG CAPSULE PO ONE (14:00)
[2022-01-02] MEDS ORDERED: GRANISETRON 1 MG/1 ML VIAL IV SCH (14:00)
[2022-01-02] MEDS ORDERED: SODIUM CHLORIDE 0.9% IV ONE (15:00)
[2022-01-02] MEDS ORDERED: DOCETAXEL IV ONE (15:00)
[2022-01-02] MEDS ORDERED: LEUCOVORIN INJ 600 MG in DEXTROSE 5% 250 ML IV ONE (16:30)
[2022-01-02] MEDS: GABAPENTIN 400 MG CAPSULE PO SCH (21:46)
[2022-01-03 05:47] LABS: Basophils % 0.1 % (0.0-0.8); Hematocrit 35.3 VOL% (42.0-52.0); Immature Granulocytes % 0.5 %; Immature Granulocytes Absolute 0.05 #; Mean Corpuscular Volume 94.4 FL (87-102); Mean Platelet Volume 9.9 FL (9.6-12.0); Monocytes # 0.5 10*3/uL (0.11-0.8); Monocytes % 4.9 % (1.7-12.7); Neutrophils % 74.5 % (38.7-73.9); Platelet Count 159 T/CUMM (130-400); Red Blood Count 3.74 MC/CUMM (3.8-5.5); Red Cell Distribution Width 14.2 % (9.3-17.3); White Blood Count 9.7 T/CUMM (4-12)
[2022-01-03] MEDS: METOCLOPRAMIDE 10 MG/2 ML VIAL IV SCH (06:03)
[2022-01-03 06:05] LABS: Alanine Aminotransferase 13 U/L (16-61); Albumin 2.6 G/DL (3.4-5.0); Alkaline Phosphatase 110 U/L (45-117); Aspartate Amino Transferase 11 U/L (0-37); Bilirubin,Total < 0.39 MG/DL (0.20-1.00); Blood Urea Nitrogen 9 MG/DL (7-18); Calcium 8.3 MG/DL (8.5-10.1); Carbon Dioxide 27 MMOL/L (21-32); Chloride 102 MMOL/L (98-107); Glucose 213 MG/DL (74-106); Osmolality,Calculated 277.8 MOS/KG (273-304); Potassium 3.3 MMOL/L (3.5-5.1); Sodium 137 MMOL/L (136-145); Total Protein 6.2 G/DL (6.4-8.2)
[2022-01-03] MEDS ORDERED: POTASSIUM CHLORIDE 20 MEQ TABLET PO ONE (07:27)
[2022-01-03] MEDS: SODIUM CHLOR 0.9% KCL 20 MEQ 20 MEQ/1,000 ML BAG IV SCH ×4 (07:58→22:18)
[2022-01-03] MEDS: METOCLOPRAMIDE 10 MG/10 ML UDCUP PEG SCH ×4 (08:34→21:08)
[2022-01-03] MEDS: INSULIN LISPRO 100 UNIT/ML SUBCUT SCH ×4 (08:34→21:08)
[2022-01-03] MEDS: FAMOTIDINE 20 MG TABLET PO SCH (08:35)
[2022-01-03] MEDS: NYSTATIN 500,000 UNIT/5 ML UDCUP SWISH/SWAL SCH ×4 (08:35→21:08)
[2022-01-03] MEDS: GABAPENTIN 400 MG CAPSULE PO SCH ×3 (08:36→21:08)
[2022-01-03] MEDS: PANTOPRAZOLE 40 MG VIAL IV SCH ×2 (08:36→21:09)
[2022-01-03] MEDS: FLUTICASONE 50 MCG NASAL SPRAY 16 GM BOTTLE BOTH NARES SCH (08:37)
[2022-01-03] MEDS: LACTATED RINGERS 1,000 ML IV SCH (08:49)
[2022-01-03] MEDS: NICOTINE 14 MG/24 HR PATCH TRANSDERM SCH (08:54)
[2022-01-03] MEDS: DEXAMETHASONE INJ 10 MG in SODIUM CHLORIDE 0.9% 50 ML IV SCH (08:55)
[2022-01-04 05:00] LABS: Basophils % 0.1 % (0.0-0.8); Hematocrit 34.5 VOL% (42.0-52.0); Hemoglobin 11.3 GM/DL (14.0-18.0); Immature Granulocytes % 0.3 %; Immature Granulocytes Absolute 0.02 #; Lymphocytes # 2.3 10*3/uL (1.4-4.0); Lymphocytes % 31.9 % (21.2-54.2); Mean Corpuscular HGB Conc 32.8 GM/DL (32-36); Mean Corpuscular Volume 95.3 FL (87-102); Mean Platelet Volume 10.3 FL (9.6-12.0); Monocytes # 0.3 10*3/uL (0.11-0.8); Monocytes % 4.6 % (1.7-12.7); Neutrophils % 63.1 % (38.7-73.9); Platelet Count 145 T/CUMM (130-400); Red Blood Count 3.62 MC/CUMM (3.8-5.5); Red Cell Distribution Width 14.1 % (9.3-17.3); White Blood Count 7.2 T/CUMM (4-12)
[2022-01-04] MEDS: HYDROmorphone 1 MG/1 ML SYRINGE IV PRN (05:14)
[2022-01-04 05:22] LABS: Alanine Aminotransferase 11 U/L (16-61); Albumin 2.5 G/DL (3.4-5.0); Alkaline Phosphatase 86 U/L (45-117); Aspartate Amino Transferase 9 U/L (0-37); Bilirubin,Total < 0.39 MG/DL (0.20-1.00); Blood Urea Nitrogen 10 MG/DL (7-18); Carbon Dioxide 28 MMOL/L (21-32); Chloride 105 MMOL/L (98-107); Glucose 69 MG/DL (74-106); Osmolality,Calculated 275.4 MOS/KG (273-304); Potassium 3.3 MMOL/L (3.5-5.1); Sodium 140 MMOL/L (136-145)
[2022-01-04] MEDS: SODIUM CHLOR 0.9% KCL 20 MEQ 20 MEQ/1,000 ML BAG IV SCH (06:56)
[2022-01-04] MEDS: LACTATED RINGERS 1,000 ML IV SCH (07:30)
[2022-01-04] MEDS: INSULIN LISPRO 100 UNIT/ML SUBCUT SCH ×4 (07:50→21:04)
[2022-01-04] MEDS: METOCLOPRAMIDE 10 MG/10 ML UDCUP PEG SCH ×4 (07:51→21:03)
[2022-01-04] MEDS: POTASSIUM BICARB EFFERVESCENT 20 MEQ TAB.EFF PER TUBE PRN ×3 (07:52→14:21)
[2022-01-04] MEDS: GABAPENTIN 400 MG CAPSULE PO SCH ×3 (10:17→21:03)
[2022-01-04] MEDS: DEXAMETHASONE INJ 10 MG in SODIUM CHLORIDE 0.9% 50 ML IV SCH (10:18)
[2022-01-04] MEDS: NICOTINE 14 MG/24 HR PATCH TRANSDERM SCH (10:21)
[2022-01-04] MEDS: FLUTICASONE 50 MCG NASAL SPRAY 16 GM BOTTLE BOTH NARES SCH (10:21)
[2022-01-04] MEDS: FAMOTIDINE 20 MG TABLET PO SCH (10:22)
[2022-01-04] MEDS: PANTOPRAZOLE 40 MG VIAL IV SCH ×2 (10:22→21:07)
[2022-01-04] MEDS: NYSTATIN 500,000 UNIT/5 ML UDCUP SWISH/SWAL SCH (11:07)
[2022-01-05 06:08] LABS: Basophils % 0.1 % (0.0-0.8); Hematocrit 36.8 VOL% (42.0-52.0); Hemoglobin 12.1 GM/DL (14.0-18.0); Immature Granulocytes % 0.4 %; Immature Granulocytes Absolute 0.03 #; Lymphocytes # 2.6 10*3/uL (1.4-4.0); Lymphocytes % 32.9 % (21.2-54.2); Mean Corpuscular HGB Conc 32.9 GM/DL (32-36); Mean Corpuscular Volume 95.3 FL (87-102); Mean Platelet Volume 9.7 FL (9.6-12.0); Monocytes # 0.1 10*3/uL (0.11-0.8); Monocytes % 1.4 % (1.7-12.7); Neutrophils % 65.2 % (38.7-73.9); Platelet Count 149 T/CUMM (130-400); Red Blood Count 3.86 MC/CUMM (3.8-5.5); White Blood Count 7.8 T/CUMM (4-12)
[2022-01-05 06:35] LABS: Albumin 2.5 G/DL (3.4-5.0); Bilirubin,Total 0.4 MG/DL (0.20-1.00); Calcium 8.7 MG/DL (8.5-10.1); Osmolality,Calculated 274.8 MOS/KG (273-304); Potassium 3.6 MMOL/L (3.5-5.1); Total Protein 6.1 G/DL (6.4-8.2)
[2022-01-05] MEDS ORDERED: MAGNESIUM SULF RIDER 4 GM/100 ML PREMIX IV ONE (07:19)
[2022-01-05] MEDS: INSULIN LISPRO 100 UNIT/ML SUBCUT SCH ×4 (08:17→22:12)
[2022-01-05] MEDS: NICOTINE 14 MG/24 HR PATCH TRANSDERM SCH (08:17)
[2022-01-05] MEDS: FAMOTIDINE 20 MG TABLET PO SCH (08:18)
[2022-01-05] MEDS: METOCLOPRAMIDE 10 MG/10 ML UDCUP PEG SCH ×4 (08:18→22:12)
[2022-01-05] MEDS: GABAPENTIN 400 MG CAPSULE PO SCH ×3 (08:18→22:12)
[2022-01-05] MEDS: DAPAGLIFLOZIN 10 MG TABLET PO SCH (08:18)
[2022-01-05] MEDS: PANTOPRAZOLE 40 MG VIAL IV SCH ×2 (08:21→22:12)
[2022-01-05] MEDS: FLUTICASONE 50 MCG NASAL SPRAY 16 GM BOTTLE BOTH NARES SCH (08:24)
[2022-01-05] MEDS: LACTATED RINGERS 1,000 ML IV SCH (08:24)
[2022-01-05] MEDS ORDERED: PROMETHAZINE INJ 25 MG in SODIUM CHLORIDE 0.9% 50 ML IV PRN (08:43)
[2022-01-05] MEDS: DEXAMETHASONE INJ 10 MG in SODIUM CHLORIDE 0.9% 50 ML IV SCH (09:16)
[2022-01-05] MEDS: HYDROmorphone 1 MG/1 ML SYRINGE IV PRN (10:27)
[2022-01-05] MEDS ORDERED: POLYETHYLENE GLYCOL POWDER 17 GM PACK PO PRN (18:54)
[2022-01-06 06:03] LABS: Basophils % 0.2 % (0.0-0.8); Eosinophils % 0.3 % (0.00-10.9); Hematocrit 34.3 VOL% (42.0-52.0); Hemoglobin 11.5 GM/DL (14.0-18.0); Immature Granulocytes % 0.4 %; Immature Granulocytes Absolute 0.04 #; Lymphocytes # 2.7 10*3/uL (1.4-4.0); Lymphocytes % 29.7 % (21.2-54.2); Mean Corpuscular HGB Conc 33.5 GM/DL (32-36); Mean Corpuscular Volume 96.1 FL (87-102); Mean Platelet Volume 10.4 FL (9.6-12.0); Monocytes # 0.1 10*3/uL (0.11-0.8); Monocytes % 0.5 % (1.7-12.7); Neutrophils % 68.9 % (38.7-73.9); Platelet Count 153 T/CUMM (130-400); Red Blood Count 3.57 MC/CUMM (3.8-5.5); White Blood Count 9.2 T/CUMM (4-12)
[2022-01-06 06:27] LABS: Calcium 8.6 MG/DL (8.5-10.1); Osmolality,Calculated 273.8 MOS/KG (273-304); Potassium 3.4 MMOL/L (3.5-5.1)
[2022-01-06 06:39] LABS: Band Neutrophils 1 % (0-10); Lymphocytes 28 % (20-55); Total Cells Counted 100
[2022-01-06 06:40] LABS: Macrocytosis 1+; Platelet Estimate Adequate
[2022-01-06] MEDS: INSULIN LISPRO 100 UNIT/ML SUBCUT SCH ×4 (07:08→21:23)
[2022-01-06] MEDS ORDERED: SODIUM CHLORIDE 0.9% 1,000 ML IV ONE (07:53)
[2022-01-06] MEDS: LACTATED RINGERS 1,000 ML IV SCH (08:40)
[2022-01-06] MEDS: METOCLOPRAMIDE 10 MG/10 ML UDCUP PEG SCH ×4 (10:08→21:23)
[2022-01-06] MEDS: GABAPENTIN 400 MG CAPSULE PO SCH ×2 (10:08→15:13)
[2022-01-06] MEDS: DAPAGLIFLOZIN 10 MG TABLET PO SCH (10:08)
[2022-01-06] MEDS: PANTOPRAZOLE 40 MG VIAL IV SCH ×2 (10:09→21:23)
[2022-01-06] MEDS: FLUTICASONE 50 MCG NASAL SPRAY 16 GM BOTTLE BOTH NARES SCH (10:13)
[2022-01-06] MEDS: NICOTINE 14 MG/24 HR PATCH TRANSDERM SCH (15:58)
[2022-01-06] MEDS: HYDROmorphone 1 MG/1 ML SYRINGE IV PRN (15:59)
[2022-01-07] MEDS: GABAPENTIN 400 MG CAPSULE PO SCH ×4 (03:05→21:29)
[2022-01-07 05:09] LABS: Basophils # 0.1 10*3/uL (0.0-0.2); Basophils % 1.2 % (0.0-0.8); Eosinophils # 0.1 10*3/uL (0.0-0.87); Eosinophils % 0.9 % (0.00-10.9); Hematocrit 33.3 VOL% (42.0-52.0); Hemoglobin 11.1 GM/DL (14.0-18.0); Immature Granulocytes % 1.5 %; Lymphocytes # 1.9 10*3/uL (1.4-4.0); Mean Corpuscular HGB Conc 33.3 GM/DL (32-36); Mean Corpuscular Volume 95.4 FL (87-102); Mean Platelet Volume 10.2 FL (9.6-12.0); Monocytes # 0.1 10*3/uL (0.11-0.8); Monocytes % 0.7 % (1.7-12.7); Neutrophils % 67.7 % (38.7-73.9); Platelet Count 138 T/CUMM (130-400); Red Blood Count 3.49 MC/CUMM (3.8-5.5); Red Cell Distribution Width 14.2 % (9.3-17.3); White Blood Count 6.9 T/CUMM (4-12)
[2022-01-07 05:28] LABS: Calcium 8.4 MG/DL (8.5-10.1); Osmolality,Calculated 278.7 MOS/KG (273-304); Potassium 3.4 MMOL/L (3.5-5.1)
[2022-01-07 05:33] LABS: Eosinophils 1 % (0-10); Lymphocytes 21 % (20-55); Platelet Estimate Normal; Total Cells Counted 100
[2022-01-07] MEDS: METOCLOPRAMIDE 10 MG/10 ML UDCUP PEG SCH ×4 (07:06→21:29)
[2022-01-07] MEDS ORDERED: SODIUM CHLORIDE 0.9% 1,000 ML IV ONE (08:13)
[2022-01-07] MEDS: LACTATED RINGERS 1,000 ML IV SCH (08:23)
[2022-01-07] MEDS ORDERED: MIDODRINE 5 MG TABLET PO SCH (09:00)
[2022-01-07] MEDS: PANTOPRAZOLE 40 MG VIAL IV SCH (09:07)
[2022-01-07] MEDS: NICOTINE 14 MG/24 HR PATCH TRANSDERM SCH (09:10)
[2022-01-07] MEDS: INSULIN LISPRO 100 UNIT/ML SUBCUT SCH ×4 (09:11→21:28)
[2022-01-07] MEDS: FLUTICASONE 50 MCG NASAL SPRAY 16 GM BOTTLE BOTH NARES SCH (09:14)
[2022-01-07] MEDS: DAPAGLIFLOZIN 10 MG TABLET PO SCH (09:18)
[2022-01-07] MEDS: guaiFENesin 200 MG/10 ML UDCUP PO PRN ×3 (09:18→22:08)
[2022-01-07] MEDS: SODIUM CHLORIDE 0.9% 1,000 ML IV SCH ×2 (10:44→21:27)
[2022-01-07] MEDS ORDERED: MAGNESIUM SULF RIDER 2 GM/50 ML PREMIX IV ONE (11:47)
[2022-01-07] MEDS: POTASSIUM BICARB EFFERVESCENT 20 MEQ TAB.EFF PER TUBE PRN (12:22)
[2022-01-07] MEDS: OMEPRAZOLE ODT 20 MG TABLET PER TUBE SCH (21:29)
[2022-01-08] MEDS: HYDROmorphone 1 MG/1 ML SYRINGE IV PRN (01:53)
[2022-01-08] MEDS: SODIUM CHLORIDE 0.9% 1,000 ML IV SCH ×3 (04:41→23:25)
[2022-01-08 04:51] LABS: Basophils # 0.1 10*3/uL (0.0-0.2); Basophils % 1.3 % (0.0-0.8); Eosinophils # 0.1 10*3/uL (0.0-0.87); Eosinophils % 1.9 % (0.00-10.9); Hematocrit 30.6 VOL% (42.0-52.0); Hemoglobin 10.3 GM/DL (14.0-18.0); Immature Granulocytes % 1.1 %; Immature Granulocytes Absolute 0.04 #; Lymphocytes % 53.2 % (21.2-54.2); Mean Corpuscular HGB Conc 33.7 GM/DL (32-36); Mean Corpuscular Volume 95.6 FL (87-102); Mean Platelet Volume 10.1 FL (9.6-12.0); Monocytes # 0.1 10*3/uL (0.11-0.8); Monocytes % 1.9 % (1.7-12.7); Neutrophils % 40.6 % (38.7-73.9); Platelet Count 119 T/CUMM (130-400); Red Cell Distribution Width 13.9 % (9.3-17.3); White Blood Count 3.7 T/CUMM (4-12)
[2022-01-08 05:06] LABS: Calcium 7.7 MG/DL (8.5-10.1); Osmolality,Calculated 275.8 MOS/KG (273-304); Potassium 3.6 MMOL/L (3.5-5.1)
[2022-01-08 05:17] LABS: Band Neutrophils 1 % (0-10); Eosinophils 3 % (0-10); Lymphocytes 48 % (20-55); Total Cells Counted 100
[2022-01-08 05:18] LABS: Macrocytosis Slight; Platelet Estimate Adequate
[2022-01-08] MEDS: LACTATED RINGERS 1,000 ML IV SCH (08:17)
[2022-01-08] MEDS: METOCLOPRAMIDE 10 MG/10 ML UDCUP PEG SCH ×4 (08:54→21:16)
[2022-01-08] MEDS: INSULIN LISPRO 100 UNIT/ML SUBCUT SCH ×4 (08:54→21:17)
[2022-01-08] MEDS: OMEPRAZOLE ODT 20 MG TABLET PER TUBE SCH ×2 (08:55→21:16)
[2022-01-08] MEDS: DAPAGLIFLOZIN 10 MG TABLET PO SCH (08:55)
[2022-01-08] MEDS: GABAPENTIN 400 MG CAPSULE PO SCH ×3 (08:55→21:17)
[2022-01-08] MEDS: FLUTICASONE 50 MCG NASAL SPRAY 16 GM BOTTLE BOTH NARES SCH (08:57)
[2022-01-08] MEDS: NICOTINE 14 MG/24 HR PATCH TRANSDERM SCH (08:57)
[2022-01-08] MEDS: MAGNESIUM HYDROXIDE SUSP 30 ML UDCUP PO PRN (11:42)
[2022-01-08] MEDS: guaiFENesin 200 MG/10 ML UDCUP PO PRN (13:13)
[2022-01-09] MEDS ORDERED: HYDROmorphone 1 MG/1 ML SYRINGE IV ONE (02:50)
[2022-01-09] MEDS: INSULIN LISPRO 100 UNIT/ML SUBCUT SCH ×4 (08:13→20:18)
[2022-01-09] MEDS: METOCLOPRAMIDE 10 MG/10 ML UDCUP PEG SCH ×4 (08:57→20:18)
[2022-01-09] MEDS: MAGNESIUM HYDROXIDE SUSP 30 ML UDCUP PO PRN (08:57)
[2022-01-09] MEDS: FLUTICASONE 50 MCG NASAL SPRAY 16 GM BOTTLE BOTH NARES SCH (08:57)
[2022-01-09] MEDS: guaiFENesin 200 MG/10 ML UDCUP PO PRN (08:57)
[2022-01-09] MEDS: NICOTINE 14 MG/24 HR PATCH TRANSDERM SCH (08:58)
[2022-01-09] MEDS: DAPAGLIFLOZIN 10 MG TABLET PO SCH (08:58)
[2022-01-09] MEDS: OMEPRAZOLE ODT 20 MG TABLET PER TUBE SCH ×2 (08:59→20:17)
[2022-01-09] MEDS: GABAPENTIN 400 MG CAPSULE PO SCH ×3 (08:59→20:17)
[2022-01-09] MEDS: LACTATED RINGERS 1,000 ML IV SCH (08:59)
[2022-01-09] MEDS: SODIUM CHLORIDE 0.9% 1,000 ML IV SCH ×2 (10:00→20:18)
[2022-01-10] MEDS: SODIUM CHLORIDE 0.9% 1,000 ML IV SCH ×4 (05:26→21:47)
[2022-01-10 05:39] LABS: Basophils % 0.3 % (0.0-0.8); Eosinophils # 0.1 10*3/uL (0.0-0.87); Eosinophils % 2.1 % (0.00-10.9); Hematocrit 30.9 VOL% (42.0-52.0); Hemoglobin 10.1 GM/DL (14.0-18.0); Immature Granulocytes % 1.7 %; Immature Granulocytes Absolute 0.05 #; Lymphocytes # 2.1 10*3/uL (1.4-4.0); Lymphocytes % 72.9 % (21.2-54.2); Mean Corpuscular HGB Conc 32.7 GM/DL (32-36); Mean Platelet Volume 9.6 FL (9.6-12.0); Monocytes # 0.2 10*3/uL (0.11-0.8); Monocytes % 5.8 % (1.7-12.7); Neutrophils % 17.2 % (38.7-73.9); Platelet Count 141 T/CUMM (130-400); Red Blood Count 3.22 MC/CUMM (3.8-5.5); White Blood Count 2.9 T/CUMM (4-12)
[2022-01-10 06:00] LABS: Albumin 2.4 G/DL (3.4-5.0); Bilirubin,Total 0.4 MG/DL (0.20-1.00); Calcium 8.4 MG/DL (8.5-10.1); Osmolality,Calculated 272.2 MOS/KG (273-304); Potassium 4.2 MMOL/L (3.5-5.1); Total Protein 5.6 G/DL (6.4-8.2)
[2022-01-10 06:08] LABS: Lymphocytes 81 % (20-55); Total Cells Counted 100
[2022-01-10 06:09] LABS: Platelet Estimate Normal
[2022-01-10] MEDS: INSULIN LISPRO 100 UNIT/ML SUBCUT SCH ×4 (09:36→21:55)
[2022-01-10] MEDS: NICOTINE 14 MG/24 HR PATCH TRANSDERM SCH (09:37)
[2022-01-10] MEDS: GABAPENTIN 400 MG CAPSULE PO SCH ×3 (09:37→21:54)
[2022-01-10] MEDS: DAPAGLIFLOZIN 10 MG TABLET PO SCH (09:38)
[2022-01-10] MEDS: OMEPRAZOLE ODT 20 MG TABLET PER TUBE SCH ×2 (09:38→21:54)
[2022-01-10] MEDS: METOCLOPRAMIDE 10 MG/10 ML UDCUP PEG SCH ×5 (09:38→21:55)
[2022-01-10] MEDS: FLUTICASONE 50 MCG NASAL SPRAY 16 GM BOTTLE BOTH NARES SCH (10:38)
[2022-01-10] MEDS: LACTATED RINGERS 1,000 ML IV SCH (10:38)
[2022-01-10] MEDS ORDERED: HYDROmorphone 1 MG/1 ML SYRINGE IV PRN (14:48)
[2022-01-10] MEDS: oxyCODONE/ACETAMINOPHEN 5-325 MG TABLET PO PRN ×2 (14:58→21:54)
[2022-01-11] MEDS: SODIUM CHLORIDE 0.9% 1,000 ML IV SCH ×3 (03:02→10:32)
[2022-01-11] MEDS: NICOTINE 14 MG/24 HR PATCH TRANSDERM SCH (10:32)
[2022-01-11] MEDS: INSULIN LISPRO 100 UNIT/ML SUBCUT SCH ×4 (10:32→22:15)
[2022-01-11] MEDS: METOCLOPRAMIDE 10 MG/10 ML UDCUP PEG SCH ×4 (10:32→23:15)
[2022-01-11] MEDS: DAPAGLIFLOZIN 10 MG TABLET PO SCH (10:33)
[2022-01-11] MEDS: OMEPRAZOLE ODT 20 MG TABLET PER TUBE SCH ×2 (10:33→23:15)
[2022-01-11] MEDS: FLUTICASONE 50 MCG NASAL SPRAY 16 GM BOTTLE BOTH NARES SCH (10:34)
[2022-01-11] MEDS: oxyCODONE/ACETAMINOPHEN 5-325 MG TABLET PO PRN ×3 (10:34→23:16)
[2022-01-11] MEDS: LACTATED RINGERS 1,000 ML IV SCH (10:35)
[2022-01-11] MEDS: GABAPENTIN 400 MG CAPSULE PO SCH ×3 (10:35→22:15)
[2022-01-12] MEDS: SODIUM CHLORIDE 0.9% 1,000 ML IV SCH ×3 (00:12→21:35)
[2022-01-12] MEDS: oxyCODONE/ACETAMINOPHEN 5-325 MG TABLET PO PRN ×4 (04:38→20:11)
[2022-01-12 05:00] LABS: Basophils % 0.5 % (0.0-0.8); Eosinophils # 0.1 10*3/uL (0.0-0.87); Eosinophils % 2.1 % (0.00-10.9); Hematocrit 30.4 VOL% (42.0-52.0); Hemoglobin 9.8 GM/DL (14.0-18.0); Immature Granulocytes % 0.3 %; Immature Granulocytes Absolute 0.01 #; Lymphocytes # 2.6 10*3/uL (1.4-4.0); Lymphocytes % 67.4 % (21.2-54.2); Mean Corpuscular HGB Conc 32.2 GM/DL (32-36); Mean Corpuscular Volume 97.4 FL (87-102); Mean Platelet Volume 9.3 FL (9.6-12.0); Monocytes # 0.6 10*3/uL (0.11-0.8); Monocytes % 16.4 % (1.7-12.7); Neutrophils % 13.3 % (38.7-73.9); Platelet Count 195 T/CUMM (130-400); Red Blood Count 3.12 MC/CUMM (3.8-5.5); Red Cell Distribution Width 14.6 % (9.3-17.3); White Blood Count 3.8 T/CUMM (4-12)
[2022-01-12 07:03] LABS: Eosinophils 3 % (0-10); Lymphocytes 76 % (20-55); Platelet Estimate Normal; Total Cells Counted 100
[2022-01-12] MEDS: LACTATED RINGERS 1,000 ML IV SCH (08:11)
[2022-01-12 08:12] LABS: Calcium 8.5 MG/DL (8.5-10.1); Osmolality,Calculated 269.2 MOS/KG (273-304); Potassium 4.5 MMOL/L (3.5-5.1)
[2022-01-12] MEDS: OMEPRAZOLE ODT 20 MG TABLET PER TUBE SCH ×2 (08:24→21:33)
[2022-01-12] MEDS: GABAPENTIN 400 MG CAPSULE PO SCH ×3 (08:25→21:35)
[2022-01-12] MEDS: DAPAGLIFLOZIN 10 MG TABLET PO SCH (08:25)
[2022-01-12] MEDS: METOCLOPRAMIDE 10 MG/10 ML UDCUP PEG SCH ×4 (08:26→21:34)
[2022-01-12] MEDS: INSULIN LISPRO 100 UNIT/ML SUBCUT SCH ×4 (08:31→21:33)
[2022-01-12] MEDS: NICOTINE 14 MG/24 HR PATCH TRANSDERM SCH (08:41)
[2022-01-12] MEDS: FLUTICASONE 50 MCG NASAL SPRAY 16 GM BOTTLE BOTH NARES SCH (08:43)
[2022-01-12] MEDS: MELATONIN 3 MG TABLET PO PRN (21:33)
[2022-01-13] MEDS: oxyCODONE/ACETAMINOPHEN 5-325 MG TABLET PO PRN ×4 (02:08→20:27)
[2022-01-13 04:46] LABS: Basophils % 0.4 % (0.0-0.8); Eosinophils # 0.1 10*3/uL (0.0-0.87); Eosinophils % 1.6 % (0.00-10.9); Hematocrit 29.6 VOL% (42.0-52.0); Hemoglobin 9.6 GM/DL (14.0-18.0); Immature Granulocytes % 0.4 %; Immature Granulocytes Absolute 0.02 #; Lymphocytes # 3.1 10*3/uL (1.4-4.0); Mean Corpuscular HGB Conc 32.4 GM/DL (32-36); Mean Corpuscular Volume 98.3 FL (87-102); Mean Platelet Volume 8.9 FL (9.6-12.0); Monocytes # 0.8 10*3/uL (0.11-0.8); Monocytes % 15.8 % (1.7-12.7); Neutrophils % 17.8 % (38.7-73.9); Platelet Count 194 T/CUMM (130-400); Red Blood Count 3.01 MC/CUMM (3.8-5.5); Red Cell Distribution Width 14.7 % (9.3-17.3); White Blood Count 4.9 T/CUMM (4-12)
[2022-01-13 05:10] LABS: Band Neutrophils 1 % (0-10); Eosinophils 3 % (0-10); Lymphocytes 69 % (20-55); Platelet Estimate Adequate; Total Cells Counted 100
[2022-01-13 05:26] LABS: Alanine Aminotransferase 15 U/L (16-61); Albumin 2.2 G/DL (3.4-5.0); Alkaline Phosphatase 93 U/L (45-117); Aspartate Amino Transferase 14 U/L (0-37); Bilirubin,Total < 0.39 MG/DL (0.20-1.00); Blood Urea Nitrogen 8 MG/DL (7-18); Calcium 8.4 MG/DL (8.5-10.1); Carbon Dioxide 25 MMOL/L (21-32); Chloride 107 MMOL/L (98-107); Glucose 117 MG/DL (74-106); Osmolality,Calculated 275.5 MOS/KG (273-304); Potassium 4.2 MMOL/L (3.5-5.1); Sodium 139 MMOL/L (136-145); Total Protein 5.4 G/DL (6.4-8.2)
[2022-01-13] MEDS: INSULIN LISPRO 100 UNIT/ML SUBCUT SCH ×4 (07:26→21:35)
[2022-01-13] MEDS: LACTATED RINGERS 1,000 ML IV SCH (08:33)
[2022-01-13] MEDS: OMEPRAZOLE ODT 20 MG TABLET PER TUBE SCH ×2 (09:28→21:36)
[2022-01-13] MEDS: DAPAGLIFLOZIN 10 MG TABLET PO SCH (09:28)
[2022-01-13] MEDS: METOCLOPRAMIDE 10 MG/10 ML UDCUP PEG SCH ×4 (09:34→21:36)
[2022-01-13] MEDS: GABAPENTIN 400 MG CAPSULE PO SCH ×3 (09:34→21:36)
[2022-01-13] MEDS: FLUTICASONE 50 MCG NASAL SPRAY 16 GM BOTTLE BOTH NARES SCH (09:38)
[2022-01-13] MEDS: NICOTINE 14 MG/24 HR PATCH TRANSDERM SCH (09:39)
[2022-01-13] MEDS ORDERED: DEXAMETHASONE 10 MG/1 ML VIAL IV SCH (13:00)
[2022-01-13] MEDS ORDERED: GRANISETRON 1 MG/1 ML VIAL IV SCH (13:00)
[2022-01-13] MEDS ORDERED: FAMOTIDINE 20 MG TABLET PO ONE (13:00)
[2022-01-13] MEDS ORDERED: diphenhydrAMINE CAP 50 MG CAPSULE PO ONE (13:00)
[2022-01-13] MEDS ORDERED: SODIUM CHLORIDE 0.9% IV ONE (13:30)
[2022-01-13] MEDS ORDERED: CARBOplatin 400 MG in SODIUM CHLORIDE 0.9% 250 ML IV ONE (13:30)
[2022-01-13] MEDS ORDERED: DOCETAXEL IV ONE (13:30)
[2022-01-13] MEDS: SODIUM CHLORIDE 0.9% 1,000 ML IV SCH (14:15)
[2022-01-13] MEDS: MELATONIN 3 MG TABLET PO PRN (21:36)
[2022-01-14] MEDS: oxyCODONE/ACETAMINOPHEN 5-325 MG TABLET PO PRN ×5 (02:10→21:07)
[2022-01-14] MEDS: SODIUM CHLORIDE 0.9% 1,000 ML IV SCH ×2 (03:45→14:31)
[2022-01-14] MEDS: GABAPENTIN 400 MG CAPSULE PO SCH ×3 (08:08→21:06)
[2022-01-14] MEDS: DAPAGLIFLOZIN 10 MG TABLET PO SCH (08:08)
[2022-01-14] MEDS: OMEPRAZOLE ODT 20 MG TABLET PER TUBE SCH ×2 (08:08→21:06)
[2022-01-14] MEDS: NICOTINE 14 MG/24 HR PATCH TRANSDERM SCH (08:08)
[2022-01-14] MEDS: METOCLOPRAMIDE 10 MG/10 ML UDCUP PEG SCH ×4 (08:08→21:06)
[2022-01-14] MEDS: FLUTICASONE 50 MCG NASAL SPRAY 16 GM BOTTLE BOTH NARES SCH (08:08)
[2022-01-14] MEDS: INSULIN LISPRO 100 UNIT/ML SUBCUT SCH ×4 (08:14→21:05)
[2022-01-14] MEDS: LACTATED RINGERS 1,000 ML IV SCH (08:14)
[2022-01-14] MEDS: POLYETHYLENE GLYCOL POWDER 17 GM PACK PO SCH (21:06)
[2022-01-14] MEDS: MELATONIN 3 MG TABLET PO PRN (21:07)
[2022-01-15] MEDS: oxyCODONE/ACETAMINOPHEN 5-325 MG TABLET PO PRN ×6 (01:26→21:47)
[2022-01-15] MEDS: SODIUM CHLORIDE 0.9% 1,000 ML IV SCH ×2 (05:01→22:54)
[2022-01-15 07:40] LABS: Basophils % 0.4 % (0.0-0.8); Eosinophils % 0.4 % (0.00-10.9); Hemoglobin 10.4 GM/DL (14.0-18.0); Immature Granulocytes % 0.4 %; Immature Granulocytes Absolute 0.02 #; Lymphocytes # 2.5 10*3/uL (1.4-4.0); Lymphocytes % 53.7 % (21.2-54.2); Mean Corpuscular HGB Conc 32.5 GM/DL (32-36); Mean Corpuscular Volume 96.7 FL (87-102); Mean Platelet Volume 8.7 FL (9.6-12.0); Monocytes # 0.2 10*3/uL (0.11-0.8); Monocytes % 4.5 % (1.7-12.7); Neutrophils % 40.6 % (38.7-73.9); Platelet Count 237 T/CUMM (130-400); Red Blood Count 3.31 MC/CUMM (3.8-5.5); Red Cell Distribution Width 14.8 % (9.3-17.3); White Blood Count 4.6 T/CUMM (4-12)
[2022-01-15 07:59] LABS: Eosinophils 2 % (0-10); Lymphocytes 46 % (20-55); Platelet Estimate Adequate; Total Cells Counted 100
[2022-01-15 08:02] LABS: Alanine Aminotransferase 39 U/L (16-61); Albumin 2.6 G/DL (3.4-5.0); Alkaline Phosphatase 110 U/L (45-117); Aspartate Amino Transferase 48 U/L (0-37); Bilirubin,Total < 0.39 MG/DL (0.20-1.00); Blood Urea Nitrogen 13 MG/DL (7-18); Calcium 8.7 MG/DL (8.5-10.1); Carbon Dioxide 29 MMOL/L (21-32); Chloride 101 MMOL/L (98-107); Glucose 143 MG/DL (74-106); Potassium 4.4 MMOL/L (3.5-5.1); Sodium 136 MMOL/L (136-145); Total Protein 6.3 G/DL (6.4-8.2)
[2022-01-15] MEDS: INSULIN LISPRO 100 UNIT/ML SUBCUT SCH ×4 (08:35→20:58)
[2022-01-15] MEDS: POLYETHYLENE GLYCOL POWDER 17 GM PACK PO SCH ×2 (09:24→21:46)
[2022-01-15] MEDS: METOCLOPRAMIDE 10 MG/10 ML UDCUP PEG SCH ×4 (09:26→21:46)
[2022-01-15] MEDS: DAPAGLIFLOZIN 10 MG TABLET PO SCH (09:27)
[2022-01-15] MEDS: OMEPRAZOLE ODT 20 MG TABLET PER TUBE SCH ×2 (09:27→21:46)
[2022-01-15] MEDS: GABAPENTIN 400 MG CAPSULE PO SCH ×4 (09:27→21:46)
[2022-01-15] MEDS: FLUTICASONE 50 MCG NASAL SPRAY 16 GM BOTTLE BOTH NARES SCH (09:27)
[2022-01-15] MEDS: NICOTINE 14 MG/24 HR PATCH TRANSDERM SCH (09:27)
[2022-01-15] MEDS: LACTULOSE 20 GM/30 ML UDCUP PO SCH ×2 (13:44→21:46)
[2022-01-15] MEDS: LACTATED RINGERS 1,000 ML IV SCH (19:37)
[2022-01-15] MEDS: MELATONIN 3 MG TABLET PO PRN (23:49)
[2022-01-16] MEDS: oxyCODONE/ACETAMINOPHEN 5-325 MG TABLET PO PRN ×4 (01:59→21:16)
[2022-01-16 04:18] LABS: Basophils % 0.2 % (0.0-0.8); Eosinophils # 0.1 10*3/uL (0.0-0.87); Hematocrit 30.2 VOL% (42.0-52.0); Hemoglobin 9.8 GM/DL (14.0-18.0); Immature Granulocytes % 0.6 %; Immature Granulocytes Absolute 0.03 #; Lymphocytes # 2.5 10*3/uL (1.4-4.0); Lymphocytes % 50.6 % (21.2-54.2); Mean Corpuscular HGB Conc 32.5 GM/DL (32-36); Mean Corpuscular Volume 98.1 FL (87-102); Mean Platelet Volume 9.2 FL (9.6-12.0); Monocytes # 0.3 10*3/uL (0.11-0.8); Monocytes % 5.2 % (1.7-12.7); Neutrophils % 42.4 % (38.7-73.9); Platelet Count 206 T/CUMM (130-400); Red Blood Count 3.08 MC/CUMM (3.8-5.5); Red Cell Distribution Width 14.8 % (9.3-17.3)
[2022-01-16 04:37] LABS: Alanine Aminotransferase 32 U/L (16-61); Albumin 2.5 G/DL (3.4-5.0); Alkaline Phosphatase 96 U/L (45-117); Aspartate Amino Transferase 35 U/L (0-37); Bilirubin,Total < 0.39 MG/DL (0.20-1.00); Blood Urea Nitrogen 14 MG/DL (7-18); Calcium 8.8 MG/DL (8.5-10.1); Carbon Dioxide 27 MMOL/L (21-32); Chloride 102 MMOL/L (98-107); Glucose 150 MG/DL (74-106); Osmolality,Calculated 271.2 MOS/KG (273-304); Potassium 4.7 MMOL/L (3.5-5.1); Sodium 134 MMOL/L (136-145); Total Protein 5.6 G/DL (6.4-8.2)
[2022-01-16 04:38] LABS: Eosinophils 2 % (0-10); Lymphocytes 49 % (20-55); Platelet Estimate Adequate; Total Cells Counted 100
[2022-01-16] MEDS: METOCLOPRAMIDE 10 MG/10 ML UDCUP PEG SCH ×4 (07:45→21:15)
[2022-01-16] MEDS: LACTATED RINGERS 1,000 ML IV SCH (08:19)
[2022-01-16] MEDS: POLYETHYLENE GLYCOL POWDER 17 GM PACK PO SCH ×2 (09:38→21:15)
[2022-01-16] MEDS: LACTULOSE 20 GM/30 ML UDCUP PO SCH ×2 (09:38→21:15)
[2022-01-16] MEDS: DAPAGLIFLOZIN 10 MG TABLET PO SCH (09:39)
[2022-01-16] MEDS: GABAPENTIN 400 MG CAPSULE PO SCH ×3 (09:39→21:17)
[2022-01-16] MEDS: OMEPRAZOLE ODT 20 MG TABLET PER TUBE SCH ×2 (09:40→21:17)
[2022-01-16] MEDS: NICOTINE 14 MG/24 HR PATCH TRANSDERM SCH (09:44)
[2022-01-16] MEDS: FLUTICASONE 50 MCG NASAL SPRAY 16 GM BOTTLE BOTH NARES SCH (09:48)
[2022-01-16] MEDS: INSULIN LISPRO 100 UNIT/ML SUBCUT SCH ×4 (09:48→21:17)
[2022-01-16] MEDS: guaiFENesin 200 MG/10 ML UDCUP PO PRN (21:15)
[2022-01-16] MEDS: MELATONIN 3 MG TABLET PO PRN (21:16)
[2022-01-17] MEDS: oxyCODONE/ACETAMINOPHEN 5-325 MG TABLET PO PRN ×2 (02:46→08:49)
[2022-01-17] MEDS: SODIUM CHLORIDE 0.9% 1,000 ML IV SCH ×2 (05:06→14:02)
[2022-01-17 05:17] LABS: Basophils % 0.5 % (0.0-0.8); Eosinophils # 0.1 10*3/uL (0.0-0.87); Eosinophils % 1.8 % (0.00-10.9); Hematocrit 31.1 VOL% (42.0-52.0); Immature Granulocytes % 0.5 %; Immature Granulocytes Absolute 0.02 #; Lymphocytes # 2.2 10*3/uL (1.4-4.0); Lymphocytes % 56.8 % (21.2-54.2); Mean Corpuscular HGB Conc 32.2 GM/DL (32-36); Mean Corpuscular Volume 98.4 FL (87-102); Mean Platelet Volume 9.2 FL (9.6-12.0); Monocytes # 0.1 10*3/uL (0.11-0.8); Monocytes % 2.9 % (1.7-12.7); Neutrophils % 37.5 % (38.7-73.9); Platelet Count 218 T/CUMM (130-400); Red Blood Count 3.16 MC/CUMM (3.8-5.5); Red Cell Distribution Width 14.6 % (9.3-17.3); White Blood Count 3.8 T/CUMM (4-12)
[2022-01-17 05:32] LABS: Albumin 2.6 G/DL (3.4-5.0); Bilirubin,Total 0.4 MG/DL (0.20-1.00); Calcium 8.8 MG/DL (8.5-10.1); Osmolality,Calculated 266.5 MOS/KG (273-304); Potassium 4.5 MMOL/L (3.5-5.1); Total Protein 6.1 G/DL (6.4-8.2)
[2022-01-17 06:06] LABS: Eosinophils 2 % (0-10); Lymphocytes 55 % (20-55); Platelet Estimate Adequate; Total Cells Counted 100
[2022-01-17] MEDS: METOCLOPRAMIDE 10 MG/10 ML UDCUP PEG SCH ×2 (07:40→11:52)
[2022-01-17] MEDS: FLUTICASONE 50 MCG NASAL SPRAY 16 GM BOTTLE BOTH NARES SCH (08:45)
[2022-01-17] MEDS: OMEPRAZOLE ODT 20 MG TABLET PER TUBE SCH (08:48)
[2022-01-17] MEDS: GABAPENTIN 400 MG CAPSULE PO SCH ×2 (08:49→15:30)
[2022-01-17] MEDS: DAPAGLIFLOZIN 10 MG TABLET PO SCH (08:49)
[2022-01-17] MEDS: POLYETHYLENE GLYCOL POWDER 17 GM PACK PO SCH (08:50)
[2022-01-17] MEDS: INSULIN LISPRO 100 UNIT/ML SUBCUT SCH ×2 (08:52→11:50)
[2022-01-17] MEDS: LACTULOSE 20 GM/30 ML UDCUP PO SCH (08:55)
[2022-01-17] MEDS: LACTATED RINGERS 1,000 ML IV SCH (08:55)
[2022-01-17] MEDS: NICOTINE 14 MG/24 HR PATCH TRANSDERM SCH (08:55)
[2022-01-17 12:26] VITALS: BP 112/65
== END 2022-01-17 17:00 | disposition home health service (06) | DRG 374 ==
LOC: EDBD → EDUNIT# → N.ED 14:19 → N.EDINP 18:30 → SUATTDRO 18:30 → N.5E 21:36 → N.TELES 12-31 12:33
PROVIDERS: ADMIT Internal Medicine; ATTEND Hospitalist
PROC: EGDWPEG (ICD-10-PCS; 2022-01-01 08:05)

== ENCOUNTER 2022-01-24 11:34 | Inpatient (IN) ==
[2022-01-24] MEDS ORDERED: SODIUM CHLORIDE 0.9% 1,000 ML IV STA (12:01)
[2022-01-24 12:47] LABS: Basophils % 0.3 % (0.0-0.8); Hematocrit 34.8 VOL% (42.0-52.0); Hemoglobin 11.4 GM/DL (14.0-18.0); Immature Granulocytes % 0.3 %; Immature Granulocytes Absolute 0.01 #; Lymphocytes # 1.1 10*3/uL (1.4-4.0); Lymphocytes % 38.7 % (21.2-54.2); Mean Corpuscular HGB Conc 32.8 GM/DL (32-36); Mean Corpuscular Volume 97.2 FL (87-102); Mean Platelet Volume 10.1 FL (9.6-12.0); Monocytes # 0.8 10*3/uL (0.11-0.8); Monocytes % 27.5 % (1.7-12.7); Neutrophils % 33.2 % (38.7-73.9); Platelet Count 157 T/CUMM (130-400); Red Blood Count 3.58 MC/CUMM (3.8-5.5); Red Cell Distribution Width 14.7 % (9.3-17.3); White Blood Count 2.9 T/CUMM (4-12)
[2022-01-24 13:09] LABS: Albumin 2.8 G/DL (3.4-5.0); Bilirubin,Total 0.8 MG/DL (0.20-1.00); Calcium 8.8 MG/DL (8.5-10.1); Osmolality,Calculated 275.4 MOS/KG (273-304); Potassium 3.5 MMOL/L (3.5-5.1); Total Protein 5.8 G/DL (6.4-8.2)
[2022-01-24 13:48] LABS: Anisocytosis 1+; Band Neutrophils 2 % (0-10); Lymphocytes 42 % (20-55); Macrocytosis 1+; Microcytosis 1+; Platelet Estimate Adequate; Total Cells Counted 100
[2022-01-24] MEDS ORDERED: MAGNESIUM SULF INJ 3 GM in SODIUM CHLORIDE 0.9% 100 ML IV ONE (14:01)
[2022-01-24] MEDS ORDERED: ZALEPLON 5 MG CAPSULE PO PRN (14:15)
[2022-01-24] MEDS ORDERED: ACETAMINOPHEN 325 MG TABLET PO PRN (14:15)
[2022-01-24] MEDS ORDERED: DEXTROSE 10% 250 ML BAG IV PRN (14:15)
[2022-01-24] MEDS ORDERED: GLUCAGON 1 MG VIAL IM PRN (14:15)
[2022-01-24] MEDS ORDERED: PROMETHAZINE INJ 12.5 MG in SODIUM CHLORIDE 0.9% 50 ML IV PRN (14:18)
[2022-01-24 14:42] LABS: Mucus,Urine Many /LPF (Occasional); RBC,Urine 32 /HPF (0-4); Squamous Epithelial Cell,Urine Occasional /HPF (0-10); Urine Appearance Clear (Clear); Urine Color Yellow (Yellow)
[2022-01-24 14:43] LABS: Bilirubin,Urine Small mg/dL (Negative); Blood, Urine Trace mg/dL (Negative); Glucose,Urine (UA) >=1000 mg/dL (Negative); Ketones,Urine 40 mg/dL (Negative); Nitrite,Urine Negative (Negative); Protein,Urine 30 mg/dL (Negative); Urine pH 5.5 (4.5-8.0)
[2022-01-24] MEDS: SODIUM CHLORIDE 0.9% 1,000 ML IV SCH (16:00)
[2022-01-24] MEDS: PIPERACILLIN/TAZOBACTAM 3,375 MG in SODIUM CHLORIDE 0.9% 100 ML IV SCH ×2 (17:40→22:52)
[2022-01-24] MEDS: oxyCODONE/ACETAMINOPHEN 5-325 MG TABLET PO PRN ×2 (17:54→22:53)
[2022-01-24] MEDS: ENOXAPARIN 40 MG/0.4 ML SYRINGE SUBCUT SCH (17:55)
[2022-01-24] MEDS: INSULIN LISPRO 100 UNIT/ML SUBCUT SCH ×2 (18:19→22:51)
[2022-01-24] MEDS: GABAPENTIN 400 MG CAPSULE PO SCH ×2 (18:19→22:51)
[2022-01-24] MEDS: METOCLOPRAMIDE 10 MG/10 ML UDCUP PEG SCH ×2 (18:22→22:51)
[2022-01-24] MEDS: POLYETHYLENE GLYCOL POWDER 17 GM PACK PO SCH (22:50)
[2022-01-24] MEDS: NYSTATIN CREAM 15 GM TUBE TOP SCH (22:51)
[2022-01-25] MEDS: PIPERACILLIN/TAZOBACTAM 3,375 MG in SODIUM CHLORIDE 0.9% 100 ML IV SCH ×3 (05:30→22:25)
[2022-01-25 06:14] LABS: Basophils % 0.5 % (0.0-0.8); Hematocrit 30.4 VOL% (42.0-52.0); Hemoglobin 10.1 GM/DL (14.0-18.0); Immature Granulocytes % 0.2 %; Immature Granulocytes Absolute 0.01 #; Lymphocytes # 1.9 10*3/uL (1.4-4.0); Lymphocytes % 46.7 % (21.2-54.2); Mean Corpuscular HGB Conc 33.2 GM/DL (32-36); Mean Corpuscular Volume 95.9 FL (87-102); Mean Platelet Volume 9.5 FL (9.6-12.0); Monocytes # 0.9 10*3/uL (0.11-0.8); Monocytes % 21.7 % (1.7-12.7); Neutrophils % 30.9 % (38.7-73.9); Platelet Count 161 T/CUMM (130-400); Red Blood Count 3.17 MC/CUMM (3.8-5.5); Red Cell Distribution Width 14.7 % (9.3-17.3); White Blood Count 4.1 T/CUMM (4-12)
[2022-01-25 06:20] LABS: Albumin 2.2 G/DL (3.4-5.0); Bilirubin,Total 0.6 MG/DL (0.20-1.00); Calcium 8.4 MG/DL (8.5-10.1); Osmolality,Calculated 272.2 MOS/KG (273-304); Potassium 3.6 MMOL/L (3.5-5.1); Total Protein 5.7 G/DL (6.4-8.2)
[2022-01-25 07:08] LABS: Anisocytosis 1+; Atypical Lymphocytes Few; Band Neutrophils 20 % (0-10); Lymphocytes 47 % (20-55); Metamyelocytes 1 %; Platelet Estimate Normal; Target Cells Few; Total Cells Counted 100
[2022-01-25 07:09] LABS: Macrocytosis 1+
[2022-01-25] MEDS: POLYETHYLENE GLYCOL POWDER 17 GM PACK PO SCH ×2 (09:30→22:28)
[2022-01-25] MEDS: GABAPENTIN 400 MG CAPSULE PO SCH ×3 (09:31→22:25)
[2022-01-25] MEDS: FLUTICASONE 50 MCG NASAL SPRAY 16 GM BOTTLE BOTH NARES SCH ×2 (09:31→16:51)
[2022-01-25] MEDS: PANTOPRAZOLE 40 MG TABLET PO SCH (09:31)
[2022-01-25] MEDS: DAPAGLIFLOZIN 10 MG TABLET PO SCH (09:31)
[2022-01-25] MEDS: METOCLOPRAMIDE 10 MG/10 ML UDCUP PEG SCH ×4 (09:31→22:26)
[2022-01-25] MEDS: oxyCODONE/ACETAMINOPHEN 5-325 MG TABLET PO PRN ×3 (09:32→22:26)
[2022-01-25] MEDS: INSULIN LISPRO 100 UNIT/ML SUBCUT SCH ×4 (13:13→22:27)
[2022-01-25] MEDS: NYSTATIN CREAM 15 GM TUBE TOP SCH ×3 (13:14→22:27)
[2022-01-25] MEDS: ENOXAPARIN 40 MG/0.4 ML SYRINGE SUBCUT SCH (15:46)
[2022-01-25] MEDS: SODIUM CHLORIDE 0.9% 1,000 ML IV SCH ×2 (15:47→16:52)
[2022-01-26] MEDS: oxyCODONE/ACETAMINOPHEN 5-325 MG TABLET PO PRN ×4 (03:41→20:45)
[2022-01-26] MEDS: SODIUM CHLORIDE 0.9% 1,000 ML IV SCH ×2 (03:45→17:06)
[2022-01-26] MEDS: PIPERACILLIN/TAZOBACTAM 3,375 MG in SODIUM CHLORIDE 0.9% 100 ML IV SCH ×3 (06:01→21:35)
[2022-01-26 08:28] LABS: Basophils % 0.6 % (0.0-0.8); Hematocrit 29.3 VOL% (42.0-52.0); Hemoglobin 9.8 GM/DL (14.0-18.0); Immature Granulocytes % 0.4 %; Immature Granulocytes Absolute 0.02 #; Lymphocytes % 39.2 % (21.2-54.2); Mean Corpuscular HGB Conc 33.4 GM/DL (32-36); Mean Corpuscular Volume 95.8 FL (87-102); Mean Platelet Volume 9.2 FL (9.6-12.0); Monocytes # 1.2 10*3/uL (0.11-0.8); Monocytes % 22.6 % (1.7-12.7); Neutrophils % 37.2 % (38.7-73.9); Platelet Count 152 T/CUMM (130-400); Red Blood Count 3.06 MC/CUMM (3.8-5.5); White Blood Count 5.2 T/CUMM (4-12)
[2022-01-26] MEDS: INSULIN LISPRO 100 UNIT/ML SUBCUT SCH ×4 (08:44→20:45)
[2022-01-26] MEDS: NYSTATIN CREAM 15 GM TUBE TOP SCH ×3 (08:45→20:46)
[2022-01-26 08:54] LABS: Anisocytosis 1+; Band Neutrophils 19 % (0-10); Lymphocytes 41 % (20-55); Macrocytosis 1+; Nucleated Red Blood Cells 1 /100 WBC (0-5); Platelet Estimate Normal; Total Cells Counted 100
[2022-01-26 08:55] LABS: Atypical Lymphocytes Few
[2022-01-26 08:58] LABS: Albumin 2.3 G/DL (3.4-5.0); Bilirubin,Total 0.4 MG/DL (0.20-1.00); Calcium 8.2 MG/DL (8.5-10.1); Osmolality,Calculated 266.2 MOS/KG (273-304); Potassium 2.8 MMOL/L (3.5-5.1); Total Protein 5.6 G/DL (6.4-8.2)
[2022-01-26] MEDS: METOCLOPRAMIDE 10 MG/10 ML UDCUP PEG SCH ×4 (10:18→20:45)
[2022-01-26] MEDS: DAPAGLIFLOZIN 10 MG TABLET PO SCH (10:23)
[2022-01-26] MEDS: PANTOPRAZOLE 40 MG TABLET PO SCH (10:24)
[2022-01-26] MEDS: FLUTICASONE 50 MCG NASAL SPRAY 16 GM BOTTLE BOTH NARES SCH (10:24)
[2022-01-26] MEDS: POLYETHYLENE GLYCOL POWDER 17 GM PACK PO SCH ×2 (10:24→20:46)
[2022-01-26] MEDS: GABAPENTIN 400 MG CAPSULE PO SCH ×3 (10:24→20:45)
[2022-01-26] MEDS: POTASSIUM CHLORIDE 20 MEQ TABLET PO PRN ×4 (13:22→18:55)
[2022-01-26] MEDS: ENOXAPARIN 40 MG/0.4 ML SYRINGE SUBCUT SCH (14:29)
[2022-01-27 01:50] LABS: Basophils % 0.3 % (0.0-0.8); Eosinophils % 0.1 % (0.00-10.9); Hematocrit 25.8 VOL% (42.0-52.0); Hemoglobin 8.5 GM/DL (14.0-18.0); Immature Granulocytes % 0.4 %; Immature Granulocytes Absolute 0.03 #; Lymphocytes # 3.1 10*3/uL (1.4-4.0); Lymphocytes % 45.8 % (21.2-54.2); Mean Corpuscular HGB Conc 32.9 GM/DL (32-36); Mean Corpuscular Volume 95.6 FL (87-102); Mean Platelet Volume 9.7 FL (9.6-12.0); Monocytes # 1.5 10*3/uL (0.11-0.8); Monocytes % 21.7 % (1.7-12.7); Neutrophils % 31.7 % (38.7-73.9); Platelet Count 145 T/CUMM (130-400); Red Cell Distribution Width 14.9 % (9.3-17.3); White Blood Count 6.8 T/CUMM (4-12)
[2022-01-27 02:19] LABS: Platelet Estimate Normal
[2022-01-27] MEDS: oxyCODONE/ACETAMINOPHEN 5-325 MG TABLET PO PRN ×4 (02:43→22:18)
[2022-01-27 05:10] LABS: Alanine Aminotransferase 12 U/L (16-61); Alkaline Phosphatase 69 U/L (45-117); Aspartate Amino Transferase 12 U/L (0-37); Bilirubin,Total < 0.39 MG/DL (0.20-1.00); Blood Urea Nitrogen 6 MG/DL (7-18); Carbon Dioxide 25 MMOL/L (21-32); Chloride 105 MMOL/L (98-107); Glucose 104 MG/DL (74-106); Osmolality,Calculated 267.1 MOS/KG (273-304); Potassium 3.5 MMOL/L (3.5-5.1); Sodium 135 MMOL/L (136-145)
[2022-01-27] MEDS: PIPERACILLIN/TAZOBACTAM 3,375 MG in SODIUM CHLORIDE 0.9% 100 ML IV SCH ×2 (05:31→14:50)
[2022-01-27] MEDS: SODIUM CHLORIDE 0.9% 1,000 ML IV SCH ×2 (05:32→12:15)
[2022-01-27] MEDS: INSULIN LISPRO 100 UNIT/ML SUBCUT SCH ×4 (09:25→22:17)
[2022-01-27] MEDS: METOCLOPRAMIDE 10 MG/10 ML UDCUP PEG SCH ×4 (09:58→22:17)
[2022-01-27] MEDS: NYSTATIN CREAM 15 GM TUBE TOP SCH ×3 (09:59→22:16)
[2022-01-27] MEDS: GABAPENTIN 400 MG CAPSULE PO SCH ×3 (09:59→22:17)
[2022-01-27] MEDS: DAPAGLIFLOZIN 10 MG TABLET PO SCH (09:59)
[2022-01-27] MEDS: POLYETHYLENE GLYCOL POWDER 17 GM PACK PO SCH ×3 (09:59→22:16)
[2022-01-27] MEDS: FLUTICASONE 50 MCG NASAL SPRAY 16 GM BOTTLE BOTH NARES SCH (09:59)
[2022-01-27] MEDS: PANTOPRAZOLE 40 MG TABLET PO SCH (09:59)
[2022-01-27] MEDS: ENOXAPARIN 40 MG/0.4 ML SYRINGE SUBCUT SCH (14:50)
[2022-01-28] MEDS: oxyCODONE/ACETAMINOPHEN 5-325 MG TABLET PO PRN ×4 (05:44→20:52)
[2022-01-28] MEDS: METOCLOPRAMIDE 10 MG/10 ML UDCUP PEG SCH ×4 (06:43→20:51)
[2022-01-28 08:55] LABS: Basophils % 0.2 % (0.0-0.8); Eosinophils % 0.1 % (0.00-10.9); Hematocrit 28.3 VOL% (42.0-52.0); Hemoglobin 9.4 GM/DL (14.0-18.0); Immature Granulocytes % 1.1 %; Immature Granulocytes Absolute 0.09 #; Lymphocytes # 3.2 10*3/uL (1.4-4.0); Lymphocytes % 39.4 % (21.2-54.2); Mean Corpuscular HGB Conc 33.2 GM/DL (32-36); Mean Corpuscular Volume 96.9 FL (87-102); Mean Platelet Volume 9.4 FL (9.6-12.0); Monocytes # 1.6 10*3/uL (0.11-0.8); Monocytes % 20.3 % (1.7-12.7); Neutrophils % 38.9 % (38.7-73.9); Platelet Count 159 T/CUMM (130-400); Red Blood Count 2.92 MC/CUMM (3.8-5.5); Red Cell Distribution Width 15.7 % (9.3-17.3)
[2022-01-28] MEDS: SODIUM CHLORIDE 0.9% 1,000 ML IV SCH ×2 (09:05→11:24)
[2022-01-28] MEDS: INSULIN LISPRO 100 UNIT/ML SUBCUT SCH ×4 (09:05→20:52)
[2022-01-28 09:15] LABS: Eosinophils 1 % (0-10); Lymphocytes 35 % (20-55); Platelet Estimate Adequate; Total Cells Counted 100
[2022-01-28 09:17] LABS: Calcium 8.3 MG/DL (8.5-10.1); Osmolality,Calculated 264.4 MOS/KG (273-304); Potassium 3.6 MMOL/L (3.5-5.1)
[2022-01-28] MEDS: POLYETHYLENE GLYCOL POWDER 17 GM PACK PO SCH ×2 (09:38→20:52)
[2022-01-28] MEDS: PANTOPRAZOLE 40 MG TABLET PO SCH (09:39)
[2022-01-28] MEDS: DAPAGLIFLOZIN 10 MG TABLET PO SCH (09:39)
[2022-01-28] MEDS: FLUTICASONE 50 MCG NASAL SPRAY 16 GM BOTTLE BOTH NARES SCH (09:40)
[2022-01-28] MEDS: NYSTATIN CREAM 15 GM TUBE TOP SCH ×3 (09:40→20:53)
[2022-01-28] MEDS: GABAPENTIN 400 MG CAPSULE PO SCH ×3 (09:40→20:51)
[2022-01-28] MEDS ORDERED: MAGNESIUM SULF RIDER 4 GM/100 ML PREMIX IV ONE (13:11)
[2022-01-28] MEDS: ENOXAPARIN 40 MG/0.4 ML SYRINGE SUBCUT SCH (14:47)
[2022-01-29] MEDS: oxyCODONE/ACETAMINOPHEN 5-325 MG TABLET PO PRN ×2 (03:48→09:18)
[2022-01-29 06:03] LABS: Basophils % 0.3 % (0.0-0.8); Eosinophils % 0.1 % (0.00-10.9); Hematocrit 26.8 VOL% (42.0-52.0); Hemoglobin 8.9 GM/DL (14.0-18.0); Immature Granulocytes % 1.5 %; Immature Granulocytes Absolute 0.14 #; Lymphocytes # 3.6 10*3/uL (1.4-4.0); Mean Corpuscular HGB Conc 33.2 GM/DL (32-36); Mean Corpuscular Volume 96.8 FL (87-102); Mean Platelet Volume 9.4 FL (9.6-12.0); Monocytes # 2.1 10*3/uL (0.11-0.8); Neutrophils % 36.1 % (38.7-73.9); Platelet Count 140 T/CUMM (130-400); Red Blood Count 2.77 MC/CUMM (3.8-5.5); Red Cell Distribution Width 15.6 % (9.3-17.3); White Blood Count 9.1 T/CUMM (4-12)
[2022-01-29 06:24] LABS: Calcium 8.2 MG/DL (8.5-10.1); Osmolality,Calculated 268.2 MOS/KG (273-304); Potassium 3.6 MMOL/L (3.5-5.1)
[2022-01-29 06:33] LABS: Eosinophils 1 % (0-10); Lymphocytes 49 % (20-55); Platelet Estimate Adequate; Total Cells Counted 100
[2022-01-29] MEDS: INSULIN LISPRO 100 UNIT/ML SUBCUT SCH ×2 (09:00→11:51)
[2022-01-29] MEDS: PANTOPRAZOLE 40 MG TABLET PO SCH (09:17)
[2022-01-29] MEDS: GABAPENTIN 400 MG CAPSULE PO SCH (09:17)
[2022-01-29] MEDS: POLYETHYLENE GLYCOL POWDER 17 GM PACK PO SCH (09:17)
[2022-01-29] MEDS: METOCLOPRAMIDE 10 MG/10 ML UDCUP PEG SCH ×2 (09:17→11:50)
[2022-01-29] MEDS: DAPAGLIFLOZIN 10 MG TABLET PO SCH (09:17)
[2022-01-29] MEDS: FLUTICASONE 50 MCG NASAL SPRAY 16 GM BOTTLE BOTH NARES SCH (09:19)
[2022-01-29] MEDS: NYSTATIN CREAM 15 GM TUBE TOP SCH (09:21)
[2022-01-29 12:50] VITALS: BP 143/52
== END 2022-01-29 14:04 | disposition home health service (06) | DRG 391 ==
LOC: N.ED 11:34 → N.EDINP 14:16 → SUATTDRO 14:16 → N.TELES 17:18
PROVIDERS: ADMIT Internal Medicine; ATTEND Hospitalist

== ENCOUNTER 2022-02-04 10:06 | Inpatient (IN) ==
[2022-02-04] MEDS ORDERED: PROMETHAZINE INJ 25 MG in SODIUM CHLORIDE 0.9% 50 ML IV PRN (11:13)
[2022-02-04] MEDS ORDERED: TEMAZEPAM 7.5 MG CAPSULE PO PRN (11:13)
[2022-02-04] MEDS ORDERED: ALPRAZolam 0.25 MG TABLET PO PRN (11:13)
[2022-02-04] MEDS ORDERED: LACTULOSE 20 GM/30 ML UDCUP PO PRN (11:13)
[2022-02-04] MEDS ORDERED: ACETAMINOPHEN 325 MG TABLET PO PRN (11:13)
[2022-02-04] MEDS ORDERED: LOPERAMIDE 2 MG CAPSULE PO PRN ×2 (11:13)
[2022-02-04] MEDS ORDERED: guaiFENesin 200 MG/10 ML UDCUP PO PRN (11:13)
[2022-02-04] MEDS ORDERED: MAGNESIUM HYDROXIDE SUSP 30 ML UDCUP PO PRN (11:13)
[2022-02-04] MEDS ORDERED: MYLANTA/LIDO VISC 2:1 300 ML BOTTLE SWISH/SWAL PRN (11:13)
[2022-02-04] MEDS ORDERED: ALUMINUM/MAGNES/SIMETH MAX STR 30 ML UDCUP PO PRN (11:13)
[2022-02-04] MEDS ORDERED: BISACODYL 5 MG TABLET PO PRN (11:13)
[2022-02-04] MEDS ORDERED: MYLANTA/LIDO VISC 2:1 300 ML BOTTLE SWISH/SPIT PRN (11:13)
[2022-02-04] MEDS ORDERED: diphenhydrAMINE CAP 25 MG CAPSULE PO PRN (11:13)
[2022-02-04] MEDS ORDERED: oxyCODONE/ACETAMINOPHEN 5-325 MG TABLET PO PRN (11:50)
[2022-02-04 12:48] LABS: Bilirubin,Urine Negative (Negative); Blood, Urine Negative (Negative); Glucose,Urine (UA) 250 mg/dL (Negative); Ketones,Urine Negative (Negative); Nitrite,Urine Negative (Negative); Protein,Urine Negative (Negative); Urine Appearance Clear (Clear); Urine Color Yellow (Yellow); Urine Urobilinogen 0.2 eU/dL (<2.0)
[2022-02-04 12:52] LABS: RBC,Urine 1 /HPF (0-4); Squamous Epithelial Cell,Urine Occasional /HPF (0-10)
[2022-02-04 13:00] LABS: Basophils % 0.3 % (0.0-0.8); Eosinophils % 0.3 % (0.00-10.9); Hematocrit 29.3 VOL% (42.0-52.0); Hemoglobin 9.5 GM/DL (14.0-18.0); Immature Granulocytes % 0.4 %; Immature Granulocytes Absolute 0.04 #; Lymphocytes # 2.8 10*3/uL (1.4-4.0); Lymphocytes % 30.3 % (21.2-54.2); Mean Corpuscular HGB Conc 32.4 GM/DL (32-36); Mean Corpuscular Volume 98.7 FL (87-102); Mean Platelet Volume 9.4 FL (9.6-12.0); Monocytes # 0.6 10*3/uL (0.11-0.8); Monocytes % 6.8 % (1.7-12.7); Neutrophils % 61.9 % (38.7-73.9); Platelet Count 171 T/CUMM (130-400); Red Blood Count 2.97 MC/CUMM (3.8-5.5); Red Cell Distribution Width 17.2 % (9.3-17.3); White Blood Count 9.2 T/CUMM (4-12)
[2022-02-04 13:21] LABS: Alanine Aminotransferase 19 U/L (16-61); Albumin 2.4 G/DL (3.4-5.0); Alkaline Phosphatase 124 U/L (45-117); Aspartate Amino Transferase 17 U/L (0-37); Bilirubin,Total < 0.39 MG/DL (0.20-1.00); Blood Urea Nitrogen 10 MG/DL (7-18); Calcium 8.4 MG/DL (8.5-10.1); Carbon Dioxide 30 MMOL/L (21-32); Chloride 103 MMOL/L (98-107); Glucose 170 MG/DL (74-106); Osmolality,Calculated 275.8 MOS/KG (273-304); Potassium 4.2 MMOL/L (3.5-5.1); Sodium 137 MMOL/L (136-145); Total Protein 6.5 G/DL (6.4-8.2); Uric Acid 2.6 MG/DL (3.5-7.2)
[2022-02-04] MEDS ORDERED: FAMOTIDINE 20 MG TABLET PO SCH (13:30)
[2022-02-04] MEDS ORDERED: GRANISETRON 1 MG/1 ML VIAL IV SCH (13:30)
[2022-02-04] MEDS ORDERED: diphenhydrAMINE CAP 50 MG CAPSULE PO SCH (13:30)
[2022-02-04] MEDS ORDERED: DEXAMETHASONE 10 MG/1 ML VIAL IV SCH ×2 (13:30→14:00)
[2022-02-04] MEDS ORDERED: SODIUM CHLORIDE 0.9% IV ONE (14:00)
[2022-02-04] MEDS ORDERED: CARBOplatin 400 MG in SODIUM CHLORIDE 0.9% 250 ML IV ONE (14:00)
[2022-02-04] MEDS ORDERED: LEUCOVORIN INJ 600 MG in DEXTROSE 5% 250 ML IV ONE (14:00)
[2022-02-04] MEDS ORDERED: DOCETAXEL IV ONE (14:00)
[2022-02-04] MEDS: glipiZIDE 10 MG TABLET PO SCH (16:20)
[2022-02-04] MEDS: METOCLOPRAMIDE 10 MG/10 ML UDCUP PO SCH ×2 (16:20→20:09)
[2022-02-04] MEDS ORDERED: BISMUTH SUBSALICYLATE 30 ML/524 MG 240 ML/BOTTLE PO PRN (16:28)
[2022-02-04] MEDS: oxyCODONE/ACETAMINOPHEN 5-325 MG TABLET PO PRN (18:38)
[2022-02-04] MEDS: metFORMIN 500 MG TABLET PO SCH (18:39)
[2022-02-04] MEDS: GABAPENTIN 400 MG CAPSULE PO SCH (20:10)
[2022-02-04] MEDS: MIRTAZAPINE 15 MG TABLET PO SCH (20:10)
[2022-02-04] MEDS: POTASSIUM CHLORIDE 20 MEQ TABLET PO SCH (20:10)
[2022-02-05] MEDS: oxyCODONE/ACETAMINOPHEN 5-325 MG TABLET PO PRN ×4 (00:29→19:00)
[2022-02-05 05:27] LABS: Basophils % 0.3 % (0.0-0.8); Hematocrit 28.7 VOL% (42.0-52.0); Hemoglobin 9.3 GM/DL (14.0-18.0); Immature Granulocytes % 0.6 %; Immature Granulocytes Absolute 0.02 #; Lymphocytes # 1.2 10*3/uL (1.4-4.0); Lymphocytes % 33.7 % (21.2-54.2); Mean Corpuscular HGB Conc 32.4 GM/DL (32-36); Mean Corpuscular Volume 98.6 FL (87-102); Mean Platelet Volume 9.4 FL (9.6-12.0); Monocytes # 0.1 10*3/uL (0.11-0.8); Monocytes % 2.9 % (1.7-12.7); Neutrophils % 62.5 % (38.7-73.9); Platelet Count 155 T/CUMM (130-400); Red Blood Count 2.91 MC/CUMM (3.8-5.5); Red Cell Distribution Width 16.7 % (9.3-17.3); White Blood Count 3.4 T/CUMM (4-12)
[2022-02-05 05:48] LABS: Alanine Aminotransferase 17 U/L (16-61); Albumin 2.2 G/DL (3.4-5.0); Alkaline Phosphatase 117 U/L (45-117); Aspartate Amino Transferase 13 U/L (0-37); Bilirubin,Total < 0.39 MG/DL (0.20-1.00); Blood Urea Nitrogen 12 MG/DL (7-18); Calcium 8.6 MG/DL (8.5-10.1); Carbon Dioxide 26 MMOL/L (21-32); Chloride 100 MMOL/L (98-107); Glucose 232 MG/DL (74-106); Osmolality,Calculated 268.7 MOS/KG (273-304); Potassium 5.3 MMOL/L (3.5-5.1); Sodium 131 MMOL/L (136-145); Total Protein 6.5 G/DL (6.4-8.2); Uric Acid 3.3 MG/DL (3.5-7.2)
[2022-02-05] MEDS: NICOTINE 21 MG/24 HR PATCH TRANSDERM SCH (08:41)
[2022-02-05] MEDS: METOCLOPRAMIDE 10 MG/10 ML UDCUP PO SCH ×4 (08:42→20:01)
[2022-02-05] MEDS: glipiZIDE 10 MG TABLET PO SCH ×2 (08:45→16:27)
[2022-02-05] MEDS: DAPAGLIFLOZIN 10 MG TABLET PO SCH (08:46)
[2022-02-05] MEDS: GABAPENTIN 400 MG CAPSULE PO SCH ×3 (08:46→20:00)
[2022-02-05] MEDS: metFORMIN 500 MG TABLET PO SCH ×2 (08:46→16:27)
[2022-02-05] MEDS: ASPIRIN CHEW 81 MG TABLET PO SCH (08:46)
[2022-02-05] MEDS: POTASSIUM CHLORIDE 20 MEQ TABLET PO SCH ×2 (08:46→20:07)
[2022-02-05] MEDS: FLUTICASONE 50 MCG NASAL SPRAY 16 GM BOTTLE BOTH NARES SCH (08:53)
[2022-02-05] MEDS ORDERED: DEXAMETHASONE 10 MG/1 ML VIAL IV ONE (09:00)
[2022-02-05] MEDS ORDERED: GRANISETRON 1 MG/1 ML VIAL IV SCH (09:00)
[2022-02-05] MEDS: MIRTAZAPINE 15 MG TABLET PO SCH (20:00)
[2022-02-06] MEDS: oxyCODONE/ACETAMINOPHEN 5-325 MG TABLET PO PRN ×2 (00:19→08:52)
[2022-02-06 05:26] LABS: Hematocrit 32.8 VOL% (42.0-52.0); Hemoglobin 10.7 GM/DL (14.0-18.0); Immature Granulocytes % 0.5 %; Immature Granulocytes Absolute 0.03 #; Lymphocytes # 1.6 10*3/uL (1.4-4.0); Lymphocytes % 27.4 % (21.2-54.2); Mean Corpuscular HGB Conc 32.6 GM/DL (32-36); Mean Corpuscular Volume 98.2 FL (87-102); Mean Platelet Volume 9.7 FL (9.6-12.0); Monocytes # 0.3 10*3/uL (0.11-0.8); Monocytes % 4.8 % (1.7-12.7); Neutrophils % 67.3 % (38.7-73.9); Platelet Count 164 T/CUMM (130-400); Red Blood Count 3.34 MC/CUMM (3.8-5.5); Red Cell Distribution Width 17.2 % (9.3-17.3); White Blood Count 5.8 T/CUMM (4-12)
[2022-02-06 05:43] LABS: Alanine Aminotransferase 19 U/L (16-61); Albumin 2.4 G/DL (3.4-5.0); Alkaline Phosphatase 108 U/L (45-117); Aspartate Amino Transferase 23 U/L (0-37); Bilirubin,Total < 0.39 MG/DL (0.20-1.00); Blood Urea Nitrogen 16 MG/DL (7-18); Calcium 9.1 MG/DL (8.5-10.1); Carbon Dioxide 24 MMOL/L (21-32); Chloride 100 MMOL/L (98-107); Glucose 163 MG/DL (74-106); Osmolality,Calculated 268.5 MOS/KG (273-304); Potassium 4.6 MMOL/L (3.5-5.1); Sodium 132 MMOL/L (136-145); Total Protein 6.7 G/DL (6.4-8.2); Uric Acid 3.5 MG/DL (3.5-7.2)
[2022-02-06] MEDS: glipiZIDE 10 MG TABLET PO SCH (08:50)
[2022-02-06] MEDS: POTASSIUM CHLORIDE 20 MEQ TABLET PO SCH (08:50)
[2022-02-06] MEDS: NICOTINE 21 MG/24 HR PATCH TRANSDERM SCH (08:50)
[2022-02-06] MEDS: metFORMIN 500 MG TABLET PO SCH (08:50)
[2022-02-06] MEDS: ASPIRIN CHEW 81 MG TABLET PO SCH (08:50)
[2022-02-06] MEDS: DAPAGLIFLOZIN 10 MG TABLET PO SCH (08:50)
[2022-02-06] MEDS: GABAPENTIN 400 MG CAPSULE PO SCH (08:51)
[2022-02-06] MEDS: METOCLOPRAMIDE 10 MG/10 ML UDCUP PO SCH ×2 (08:52→11:34)
[2022-02-06] MEDS: FLUTICASONE 50 MCG NASAL SPRAY 16 GM BOTTLE BOTH NARES SCH (08:54)
[2022-02-06 12:06] VITALS: BP 109/65
== END 2022-02-06 13:24 | disposition home health service (06) | DRG 847 ==
LOC: N.TELEN 10:06
PROVIDERS: ADMIT Specialist; ATTEND Specialist

== ENCOUNTER 2022-02-13 16:56 | Inpatient (IN) ==
[2022-02-13] MEDS ORDERED: SODIUM CHLORIDE 0.9% 1,000 ML IV STA (18:05)
[2022-02-13 19:11] LABS: Basophils % 0.3 % (0.0-0.8); Eosinophils % 0.5 % (0.00-10.9); Hematocrit 26.5 VOL% (42.0-52.0); Hemoglobin 8.7 GM/DL (14.0-18.0); Immature Granulocytes % 0.3 %; Immature Granulocytes Absolute 0.01 #; Lymphocytes # 1.7 10*3/uL (1.4-4.0); Mean Corpuscular HGB Conc 32.8 GM/DL (32-36); Mean Corpuscular Volume 97.8 FL (87-102); Mean Platelet Volume 10.6 FL (9.6-12.0); Monocytes # 0.4 10*3/uL (0.11-0.8); Monocytes % 9.5 % (1.7-12.7); Neutrophils % 46.4 % (38.7-73.9); Platelet Count 137 T/CUMM (130-400); Red Blood Count 2.71 MC/CUMM (3.8-5.5); Red Cell Distribution Width 17.4 % (9.3-17.3)
[2022-02-13 19:29] LABS: Alanine Aminotransferase 30 U/L (16-61); Albumin 2.6 G/DL (3.4-5.0); Alkaline Phosphatase 98 U/L (45-117); Aspartate Amino Transferase 30 U/L (0-37); Bilirubin,Total < 0.39 MG/DL (0.20-1.00); Blood Urea Nitrogen 16 MG/DL (7-18); Calcium 8.4 MG/DL (8.5-10.1); Carbon Dioxide 27 MMOL/L (21-32); Chloride 107 MMOL/L (98-107); Osmolality,Calculated 276.4 MOS/KG (273-304); Potassium 3.8 MMOL/L (3.5-5.1); Sodium 140 MMOL/L (136-145); Total Protein 6.2 G/DL (6.4-8.2)
[2022-02-13 19:31] LABS: Glucose 40 MG/DL (74-106)
[2022-02-13 19:55] LABS: Eosinophils 1 % (0-10); Lymphocytes 38 % (20-55); Total Cells Counted 100
[2022-02-13 19:56] LABS: Platelet Estimate Adequate
[2022-02-13] MEDS ORDERED: MORPHINE 2 MG/1 ML SYRINGE IV STA (19:58)
[2022-02-13] MEDS ORDERED: PROCHLORPERAZINE 10 MG/2 ML VIAL IV ONE (20:00)
[2022-02-13] MEDS ORDERED: DEXTROSE 50% 25 GM/50 ML SYRINGE IV ONE (20:04)
[2022-02-13 20:09] LABS: Mucus,Urine Occasional /LPF (Occasional); RBC,Urine 2 /HPF (0-4); Squamous Epithelial Cell,Urine Occasional /HPF (0-10)
[2022-02-13 20:10] LABS: Bilirubin,Urine Negative (Negative); Glucose,Urine (UA) 500 mg/dL (Negative); Ketones,Urine Negative (Negative); Nitrite,Urine Positive (Negative); Protein,Urine Negative (Negative); Urine Appearance Clear (Clear); Urine Color Yellow (Yellow)
[2022-02-13 20:11] LABS: Blood, Urine Trace mg/dL (Negative); Urine Urobilinogen 0.2 eU/dL (<2.0)
[2022-02-13] MEDS ORDERED: cefTRIAXone 1,000 MG in SODIUM CHLORIDE 0.9% 100 ML IV STA (20:52)
[2022-02-13] MEDS ORDERED: ACETAMINOPHEN 325 MG TABLET PO PRN (22:00)
[2022-02-13] MEDS ORDERED: GLUCAGON 1 MG VIAL IM PRN (22:00)
[2022-02-13] MEDS ORDERED: PROMETHAZINE 25 MG TABLET PO PRN (22:00)
[2022-02-13] MEDS ORDERED: diphenhydrAMINE CAP 25 MG CAPSULE PO PRN (22:00)
[2022-02-13] MEDS ORDERED: guaiFENesin/DM ER 600-30 MG TABLET PO PRN (22:00)
[2022-02-13] MEDS ORDERED: AZITHROMYCIN INJ 500 MG in SODIUM CHLORIDE 0.9% 250 ML IV SCH (22:00)
[2022-02-13] MEDS ORDERED: DEXTROSE 10% 250 ML BAG IV PRN (22:00)
[2022-02-13] MEDS ORDERED: ZALEPLON 5 MG CAPSULE PO PRN (22:00)
[2022-02-13] MEDS ORDERED: PROMETHAZINE 25 MG/1 ML VIAL IM PRN (22:00)
[2022-02-14] MEDS: VANCOMYCIN INJ 1,000 MG in SODIUM CHLORIDE 0.9% 250 ML IV SCH ×2 (00:03→11:23)
[2022-02-14] MEDS: ALBUTEROL/IPRATROPIUM 3 ML NEB RESP TX SCH ×4 (00:22→19:15)
[2022-02-14] MEDS: PIPERACILLIN/TAZOBACTAM 3,375 MG in SODIUM CHLORIDE 0.9% 100 ML IV SCH ×3 (02:58→18:35)
[2022-02-14] MEDS: MORPHINE 2 MG/1 ML SYRINGE IV PRN ×3 (04:27→19:26)
[2022-02-14 06:31] LABS: Eosinophils % 0.9 % (0.00-10.9); Hematocrit 26.1 VOL% (42.0-52.0); Hemoglobin 8.7 GM/DL (14.0-18.0); Immature Granulocytes % 0.2 %; Immature Granulocytes Absolute 0.01 #; Lymphocytes # 2.4 10*3/uL (1.4-4.0); Lymphocytes % 56.5 % (21.2-54.2); Mean Corpuscular HGB Conc 33.3 GM/DL (32-36); Monocytes # 0.5 10*3/uL (0.11-0.8); Neutrophils % 30.4 % (38.7-73.9); Platelet Count 135 T/CUMM (130-400); Red Blood Count 2.69 MC/CUMM (3.8-5.5); Red Cell Distribution Width 17.6 % (9.3-17.3); White Blood Count 4.3 T/CUMM (4-12)
[2022-02-14 06:47] LABS: Calcium 8.5 MG/DL (8.5-10.1)
[2022-02-14 07:01] LABS: Anisocytosis 2+; Band Neutrophils 2 % (0-10); Burr Cells Few; Eosinophils 4 % (0-10); Lymphocytes 55 % (20-55); Macrocytosis 1+; Platelet Estimate Adequate; Total Cells Counted 100
[2022-02-14 07:02] LABS: Atypical Lymphocytes Few
[2022-02-14] MEDS ORDERED: MAGNESIUM SULF RIDER 2 GM/50 ML PREMIX IV ONE ×3 (07:39→10:00)
[2022-02-14] MEDS ORDERED: LEVOFLOXACIN INJ 750 MG/150 ML PREMIX IV SCH (08:00)
[2022-02-14] MEDS: HEPARIN 5,000 UNIT/1 ML VIAL SUBCUT SCH ×2 (09:34→21:14)
[2022-02-14] MEDS: FLUTICASONE 50 MCG NASAL SPRAY 16 GM BOTTLE BOTH NARES SCH (12:56)
[2022-02-14] MEDS: GABAPENTIN 400 MG CAPSULE PO SCH ×2 (16:04→21:17)
[2022-02-14] MEDS: DEXT 5% NACL 0.9% KCL 40 MEQ 40 MEQ/1,000 ML BAG IV SCH ×3 (20:50→21:12)
[2022-02-14] MEDS: INSULIN REGULAR 100 UNIT/ML SUBCUT SCH (21:15)
[2022-02-15] MEDS: ALBUTEROL/IPRATROPIUM 3 ML NEB RESP TX SCH ×4 (00:07→19:10)
[2022-02-15] MEDS ORDERED: HYDROmorphone 1 MG/1 ML SYRINGE IV ONE (00:24)
[2022-02-15] MEDS: VANCOMYCIN INJ 1,000 MG in SODIUM CHLORIDE 0.9% 250 ML IV SCH (03:17)
[2022-02-15] MEDS: PIPERACILLIN/TAZOBACTAM 3,375 MG in SODIUM CHLORIDE 0.9% 100 ML IV SCH (04:38)
[2022-02-15 06:18] LABS: Basophils % 0.3 % (0.0-0.8); Eosinophils % 1.1 % (0.00-10.9); Hematocrit 24.1 VOL% (42.0-52.0); Immature Granulocytes % 0.3 %; Immature Granulocytes Absolute 0.01 #; Lymphocytes # 2.5 10*3/uL (1.4-4.0); Lymphocytes % 64.7 % (21.2-54.2); Mean Corpuscular HGB Conc 32.8 GM/DL (32-36); Mean Corpuscular Volume 98.4 FL (87-102); Mean Platelet Volume 10.3 FL (9.6-12.0); Monocytes # 0.5 10*3/uL (0.11-0.8); Monocytes % 12.1 % (1.7-12.7); Neutrophils % 21.5 % (38.7-73.9); Red Blood Count 2.45 MC/CUMM (3.8-5.5); Red Cell Distribution Width 17.6 % (9.3-17.3); White Blood Count 3.8 T/CUMM (4-12)
[2022-02-15 06:19] LABS: Hemoglobin 7.9 GM/DL (14.0-18.0); Platelet Count 113 T/CUMM (130-400)
[2022-02-15 06:26] LABS: Alanine Aminotransferase 20 U/L (16-61); Albumin 2.1 G/DL (3.4-5.0); Alkaline Phosphatase 77 U/L (45-117); Aspartate Amino Transferase 14 U/L (0-37); Bilirubin,Total < 0.39 MG/DL (0.20-1.00); Blood Urea Nitrogen 6 MG/DL (7-18); Calcium 7.8 MG/DL (8.5-10.1); Carbon Dioxide 25 MMOL/L (21-32); Chloride 108 MMOL/L (98-107); Glucose 160 MG/DL (74-106); Osmolality,Calculated 275.7 MOS/KG (273-304); Potassium 4.3 MMOL/L (3.5-5.1); Sodium 138 MMOL/L (136-145); Total Protein 5.5 G/DL (6.4-8.2)
[2022-02-15 06:46] LABS: % Iron Saturation 39.5 % (18-50); Ferritin 378.6 ng/mL (26-388)
[2022-02-15 07:06] LABS: Eosinophils 1 % (0-10); Hypochromia 1+; Lymphocytes 70 % (20-55); Microcytosis Slight; Total Cells Counted 100
[2022-02-15 07:07] LABS: Atypical Lymphocytes Few
[2022-02-15 07:50] LABS: Basophils % 0.6 % (0.0-0.8); Eosinophils % 0.9 % (0.00-10.9); Hematocrit 26.9 VOL% (42.0-52.0); Hemoglobin 8.7 GM/DL (14.0-18.0); Lymphocytes % 61.6 % (21.2-54.2); Mean Corpuscular HGB Conc 32.3 GM/DL (32-36); Mean Platelet Volume 9.8 FL (9.6-12.0); Monocytes # 0.5 10*3/uL (0.11-0.8); Monocytes % 14.6 % (1.7-12.7); Platelet Count 133 T/CUMM (130-400); Red Blood Count 2.69 MC/CUMM (3.8-5.5); White Blood Count 3.3 T/CUMM (4-12)
[2022-02-15 08:12] LABS: Atypical Lymphocytes Few; Lymphocytes 71 % (20-55)
[2022-02-15 08:13] LABS: Hypochromia 1+; Microcytosis Slight
[2022-02-15] MEDS: MORPHINE 2 MG/1 ML SYRINGE IV PRN (08:27)
[2022-02-15] MEDS: DEXT 5% NACL 0.9% KCL 40 MEQ 40 MEQ/1,000 ML BAG IV SCH (08:27)
[2022-02-15] MEDS: INSULIN REGULAR 100 UNIT/ML SUBCUT SCH ×4 (10:36→20:48)
[2022-02-15] MEDS: GABAPENTIN 400 MG CAPSULE PO SCH ×3 (10:36→20:04)
[2022-02-15] MEDS: HEPARIN 5,000 UNIT/1 ML VIAL SUBCUT SCH ×2 (10:37→20:04)
[2022-02-15] MEDS: FLUTICASONE 50 MCG NASAL SPRAY 16 GM BOTTLE BOTH NARES SCH (10:38)
[2022-02-15] MEDS ORDERED: PIPERACILLIN/TAZOBACTAM 3,375 MG in SODIUM CHLORIDE 0.9% 100 ML IV SCH (11:00)
[2022-02-15] MEDS: FILGRASTIM-SNDZ 300 MCG/0.5 ML SYRINGE SUBCUT SCH (12:10)
[2022-02-15] MEDS: MEROPENEM 1,000 MG in SODIUM CHLORIDE 0.9% 100 ML IV SCH ×2 (13:24→20:05)
[2022-02-15] MEDS: HYDROmorphone 2 MG TABLET PO PRN ×3 (13:25→20:05)
[2022-02-16] MEDS: HYDROmorphone 2 MG TABLET PO PRN ×5 (01:09→21:20)
[2022-02-16] MEDS: ALBUTEROL/IPRATROPIUM 3 ML NEB RESP TX SCH ×4 (01:12→19:21)
[2022-02-16] MEDS: MEROPENEM 1,000 MG in SODIUM CHLORIDE 0.9% 100 ML IV SCH ×3 (04:23→21:21)
[2022-02-16 05:48] LABS: Alanine Aminotransferase 18 U/L (16-61); Albumin 2.4 G/DL (3.4-5.0); Alkaline Phosphatase 88 U/L (45-117); Aspartate Amino Transferase 13 U/L (0-37); Bilirubin,Total < 0.39 MG/DL (0.20-1.00); Blood Urea Nitrogen 9 MG/DL (7-18); Calcium 8.7 MG/DL (8.5-10.1); Carbon Dioxide 24 MMOL/L (21-32); Chloride 105 MMOL/L (98-107); Glucose 163 MG/DL (74-106); Osmolality,Calculated 272.1 MOS/KG (273-304); Potassium 4.4 MMOL/L (3.5-5.1); Sodium 135 MMOL/L (136-145); Total Protein 5.8 G/DL (6.4-8.2)
[2022-02-16 06:50] LABS: Basophils % 0.3 % (0.0-0.8); Eosinophils % 0.5 % (0.00-10.9); Hematocrit 25.3 VOL% (42.0-52.0); Hemoglobin 8.1 GM/DL (14.0-18.0); Immature Granulocytes % 0.5 %; Immature Granulocytes Absolute 0.04 #; Lymphocytes # 2.4 10*3/uL (1.4-4.0); Mean Platelet Volume 9.4 FL (9.6-12.0); Monocytes % 13.7 % (1.7-12.7); Platelet Count 130 T/CUMM (130-400); Red Blood Count 2.53 MC/CUMM (3.8-5.5); Red Cell Distribution Width 18.3 % (9.3-17.3); White Blood Count 7.4 T/CUMM (4-12)
[2022-02-16] MEDS ORDERED: MAGNESIUM SULF RIDER 2 GM/50 ML PREMIX IV ONE (07:25)
[2022-02-16 07:28] LABS: Atypical Lymphocytes Few; Band Neutrophils 1 % (0-10); Hypochromia Slight; Lymphocytes 35 % (20-55); Microcytosis Slight; Platelet Estimate Normal; Total Cells Counted 100
[2022-02-16] MEDS: INSULIN REGULAR 100 UNIT/ML SUBCUT SCH ×4 (08:13→21:21)
[2022-02-16] MEDS: FLUTICASONE 50 MCG NASAL SPRAY 16 GM BOTTLE BOTH NARES SCH (08:14)
[2022-02-16] MEDS: HEPARIN 5,000 UNIT/1 ML VIAL SUBCUT SCH ×2 (08:14→21:21)
[2022-02-16] MEDS: GABAPENTIN 400 MG CAPSULE PO SCH ×3 (08:14→21:22)
[2022-02-16] MEDS: FILGRASTIM-SNDZ 300 MCG/0.5 ML SYRINGE SUBCUT SCH (08:20)
[2022-02-17] MEDS: ALBUTEROL/IPRATROPIUM 3 ML NEB RESP TX SCH ×4 (00:02→19:27)
[2022-02-17] MEDS: HYDROmorphone 2 MG TABLET PO PRN ×6 (01:28→22:55)
[2022-02-17] MEDS: MEROPENEM 1,000 MG in SODIUM CHLORIDE 0.9% 100 ML IV SCH ×3 (05:32→20:57)
[2022-02-17 05:52] LABS: Basophils % 0.2 % (0.0-0.8); Eosinophils % 0.4 % (0.00-10.9); Hematocrit 24.6 VOL% (42.0-52.0); Immature Granulocytes % 7.3 %; Lymphocytes # 2.3 10*3/uL (1.4-4.0); Lymphocytes % 24.4 % (21.2-54.2); Mean Corpuscular HGB Conc 32.5 GM/DL (32-36); Mean Corpuscular Volume 99.2 FL (87-102); Mean Platelet Volume 10.1 FL (9.6-12.0); Monocytes # 1.1 10*3/uL (0.11-0.8); Monocytes % 11.6 % (1.7-12.7); Neutrophils % 56.1 % (38.7-73.9); Platelet Count 112 T/CUMM (130-400); Red Blood Count 2.48 MC/CUMM (3.8-5.5); Red Cell Distribution Width 18.5 % (9.3-17.3); White Blood Count 9.6 T/CUMM (4-12)
[2022-02-17 06:13] LABS: Band Neutrophils 1 % (0-10); Lymphocytes 23 % (20-55); Nucleated Red Blood Cells 1 /100 WBC (0-5); Total Cells Counted 100
[2022-02-17 06:14] LABS: Atypical Lymphocytes Few; Hypochromia Slight; Microcytosis Slight
[2022-02-17 06:18] LABS: Alanine Aminotransferase 19 U/L (16-61); Albumin 2.6 G/DL (3.4-5.0); Alkaline Phosphatase 102 U/L (45-117); Aspartate Amino Transferase 12 U/L (0-37); Bilirubin,Total < 0.39 MG/DL (0.20-1.00); Blood Urea Nitrogen 14 MG/DL (7-18); Carbon Dioxide 30 MMOL/L (21-32); Chloride 101 MMOL/L (98-107); Glucose 122 MG/DL (74-106); Potassium 4.7 MMOL/L (3.5-5.1); Sodium 136 MMOL/L (136-145); Total Protein 6.1 G/DL (6.4-8.2)
[2022-02-17] MEDS: INSULIN REGULAR 100 UNIT/ML SUBCUT SCH ×4 (07:24→21:48)
[2022-02-17] MEDS: GABAPENTIN 400 MG CAPSULE PO SCH ×3 (09:36→20:57)
[2022-02-17] MEDS: FLUTICASONE 50 MCG NASAL SPRAY 16 GM BOTTLE BOTH NARES SCH (09:37)
[2022-02-17] MEDS: NICOTINE 21 MG/24 HR PATCH TRANSDERM PRN (09:37)
[2022-02-17] MEDS: HEPARIN 5,000 UNIT/1 ML VIAL SUBCUT SCH ×2 (09:38→20:57)
[2022-02-18] MEDS: ALBUTEROL/IPRATROPIUM 3 ML NEB RESP TX SCH ×4 (01:35→20:07)
[2022-02-18] MEDS: MEROPENEM 1,000 MG in SODIUM CHLORIDE 0.9% 100 ML IV SCH ×3 (04:26→21:10)
[2022-02-18] MEDS: HYDROmorphone 2 MG TABLET PO PRN ×5 (04:57→21:11)
[2022-02-18 05:27] LABS: Basophils % 0.2 % (0.0-0.8); Eosinophils # 0.1 10*3/uL (0.0-0.87); Eosinophils % 0.6 % (0.00-10.9); Immature Granulocytes % 0.4 %; Immature Granulocytes Absolute 0.04 #; Lymphocytes # 2.8 10*3/uL (1.4-4.0); Lymphocytes % 28.1 % (21.2-54.2); Mean Corpuscular HGB Conc 32.1 GM/DL (32-36); Mean Corpuscular Volume 100.4 FL (87-102); Mean Platelet Volume 9.9 FL (9.6-12.0); Monocytes # 0.8 10*3/uL (0.11-0.8); Monocytes % 8.1 % (1.7-12.7); Neutrophils % 62.6 % (38.7-73.9); Platelet Count 155 T/CUMM (130-400); Red Blood Count 2.79 MC/CUMM (3.8-5.5); Red Cell Distribution Width 18.6 % (9.3-17.3); White Blood Count 9.9 T/CUMM (4-12)
[2022-02-18 05:47] LABS: Alanine Aminotransferase 20 U/L (16-61); Albumin 2.7 G/DL (3.4-5.0); Alkaline Phosphatase 98 U/L (45-117); Aspartate Amino Transferase 11 U/L (0-37); Bilirubin,Total < 0.39 MG/DL (0.20-1.00); Blood Urea Nitrogen 10 MG/DL (7-18); Calcium 9.3 MG/DL (8.5-10.1); Carbon Dioxide 28 MMOL/L (21-32); Chloride 100 MMOL/L (98-107); Glucose 145 MG/DL (74-106); Osmolality,Calculated 269.2 MOS/KG (273-304); Sodium 134 MMOL/L (136-145); Total Protein 6.8 G/DL (6.4-8.2)
[2022-02-18 05:50] LABS: Atypical Lymphocytes Few; Band Neutrophils 2 % (0-10); Eosinophils 1 % (0-10); Hypochromia Slight; Lymphocytes 33 % (20-55); Microcytosis Slight; Platelet Estimate Adequate; Total Cells Counted 100
[2022-02-18] MEDS ORDERED: metFORMIN 500 MG TABLET PO SCH (08:00)
[2022-02-18] MEDS: GABAPENTIN 400 MG CAPSULE PO SCH ×3 (09:04→21:11)
[2022-02-18] MEDS: NICOTINE 21 MG/24 HR PATCH TRANSDERM PRN (09:06)
[2022-02-18] MEDS: INSULIN REGULAR 100 UNIT/ML SUBCUT SCH ×4 (09:07→21:10)
[2022-02-18] MEDS: HEPARIN 5,000 UNIT/1 ML VIAL SUBCUT SCH ×2 (09:08→21:10)
[2022-02-18] MEDS: FLUTICASONE 50 MCG NASAL SPRAY 16 GM BOTTLE BOTH NARES SCH (09:09)
[2022-02-19] MEDS: ALBUTEROL/IPRATROPIUM 3 ML NEB RESP TX SCH ×4 (02:30→19:15)
[2022-02-19 04:16] LABS: Basophils % 0.3 % (0.0-0.8); Eosinophils % 0.5 % (0.00-10.9); Hematocrit 25.7 VOL% (42.0-52.0); Hemoglobin 8.4 GM/DL (14.0-18.0); Immature Granulocytes % 0.3 %; Immature Granulocytes Absolute 0.02 #; Lymphocytes # 3.2 10*3/uL (1.4-4.0); Lymphocytes % 48.2 % (21.2-54.2); Mean Corpuscular HGB Conc 32.7 GM/DL (32-36); Mean Corpuscular Volume 99.2 FL (87-102); Mean Platelet Volume 9.4 FL (9.6-12.0); Monocytes # 0.7 10*3/uL (0.11-0.8); Monocytes % 9.9 % (1.7-12.7); Neutrophils % 40.8 % (38.7-73.9); Platelet Count 129 T/CUMM (130-400); Red Blood Count 2.59 MC/CUMM (3.8-5.5); Red Cell Distribution Width 18.9 % (9.3-17.3); White Blood Count 6.6 T/CUMM (4-12)
[2022-02-19 04:42] LABS: Alanine Aminotransferase 17 U/L (16-61); Albumin 2.7 G/DL (3.4-5.0); Alkaline Phosphatase 96 U/L (45-117); Aspartate Amino Transferase 12 U/L (0-37); Bilirubin,Total < 0.39 MG/DL (0.20-1.00); Blood Urea Nitrogen 12 MG/DL (7-18); Calcium 9.4 MG/DL (8.5-10.1); Carbon Dioxide 27 MMOL/L (21-32); Chloride 100 MMOL/L (98-107); Glucose 146 MG/DL (74-106); Osmolality,Calculated 268.4 MOS/KG (273-304); Potassium 4.3 MMOL/L (3.5-5.1); Sodium 133 MMOL/L (136-145); Total Protein 6.4 G/DL (6.4-8.2)
[2022-02-19 04:43] LABS: Atypical Lymphocytes Few; Hypochromia Slight; Lymphocytes 40 % (20-55); Microcytosis Slight; Platelet Estimate Normal; Total Cells Counted 100
[2022-02-19] MEDS: MEROPENEM 1,000 MG in SODIUM CHLORIDE 0.9% 100 ML IV SCH ×3 (05:03→20:57)
[2022-02-19] MEDS: HYDROmorphone 2 MG TABLET PO PRN ×4 (05:04→20:56)
[2022-02-19] MEDS: GABAPENTIN 400 MG CAPSULE PO SCH ×3 (09:44→20:55)
[2022-02-19] MEDS: HEPARIN 5,000 UNIT/1 ML VIAL SUBCUT SCH ×2 (09:45→20:56)
[2022-02-19] MEDS: INSULIN REGULAR 100 UNIT/ML SUBCUT SCH ×4 (09:46→20:56)
[2022-02-19] MEDS: FLUTICASONE 50 MCG NASAL SPRAY 16 GM BOTTLE BOTH NARES SCH (09:50)
[2022-02-20] MEDS: ALBUTEROL/IPRATROPIUM 3 ML NEB RESP TX SCH ×4 (01:25→19:21)
[2022-02-20] MEDS: MEROPENEM 1,000 MG in SODIUM CHLORIDE 0.9% 100 ML IV SCH ×3 (06:00→20:33)
[2022-02-20] MEDS: HYDROmorphone 2 MG TABLET PO PRN ×3 (07:56→20:32)
[2022-02-20] MEDS: INSULIN REGULAR 100 UNIT/ML SUBCUT SCH ×4 (08:34→20:32)
[2022-02-20 08:37] LABS: Basophils % 0.3 % (0.0-0.8); Eosinophils % 0.2 % (0.00-10.9); Hematocrit 28.2 VOL% (42.0-52.0); Hemoglobin 9.3 GM/DL (14.0-18.0); Immature Granulocytes % 0.5 %; Immature Granulocytes Absolute 0.03 #; Lymphocytes # 2.2 10*3/uL (1.4-4.0); Lymphocytes % 35.2 % (21.2-54.2); Mean Corpuscular Volume 99.6 FL (87-102); Mean Platelet Volume 9.6 FL (9.6-12.0); Monocytes # 0.7 10*3/uL (0.11-0.8); Monocytes % 11.3 % (1.7-12.7); Neutrophils % 52.5 % (38.7-73.9); Platelet Count 159 T/CUMM (130-400); Red Blood Count 2.83 MC/CUMM (3.8-5.5); Red Cell Distribution Width 19.5 % (9.3-17.3); White Blood Count 6.2 T/CUMM (4-12)
[2022-02-20 08:57] LABS: Alanine Aminotransferase 18 U/L (16-61); Albumin 2.8 G/DL (3.4-5.0); Alkaline Phosphatase 105 U/L (45-117); Aspartate Amino Transferase 12 U/L (0-37); Bilirubin,Total < 0.39 MG/DL (0.20-1.00); Blood Urea Nitrogen 17 MG/DL (7-18); Calcium 9.4 MG/DL (8.5-10.1); Carbon Dioxide 25 MMOL/L (21-32); Chloride 100 MMOL/L (98-107); Glucose 208 MG/DL (74-106); Osmolality,Calculated 271.5 MOS/KG (273-304); Potassium 4.4 MMOL/L (3.5-5.1); Sodium 132 MMOL/L (136-145); Total Protein 6.9 G/DL (6.4-8.2)
[2022-02-20] MEDS ORDERED: GRANISETRON 1 MG/1 ML VIAL IV SCH (09:00)
[2022-02-20] MEDS ORDERED: DEXAMETHASONE 10 MG/1 ML VIAL IV ONE (09:00)
[2022-02-20] MEDS ORDERED: diphenhydrAMINE 50 MG/1 ML VIAL IV ONE (09:00)
[2022-02-20] MEDS: GABAPENTIN 400 MG CAPSULE PO SCH ×3 (09:55→20:32)
[2022-02-20] MEDS: FLUTICASONE 50 MCG NASAL SPRAY 16 GM BOTTLE BOTH NARES SCH (09:55)
[2022-02-20] MEDS ORDERED: DOCETAXEL IV ONE (10:00)
[2022-02-20] MEDS ORDERED: SODIUM CHLORIDE 0.9% IV ONE (10:00)
[2022-02-20] MEDS: HEPARIN 5,000 UNIT/1 ML VIAL SUBCUT SCH ×2 (10:25→20:32)
[2022-02-20] MEDS ORDERED: CARBOplatin 400 MG in SODIUM CHLORIDE 0.9% 250 ML IV ONE (12:00)
[2022-02-21] MEDS: HYDROmorphone 2 MG TABLET PO PRN ×2 (00:07→09:15)
[2022-02-21] MEDS: ALBUTEROL/IPRATROPIUM 3 ML NEB RESP TX SCH ×3 (00:38→12:55)
[2022-02-21 03:46] LABS: Basophils % 0.3 % (0.0-0.8); Hematocrit 26.8 VOL% (42.0-52.0); Hemoglobin 8.7 GM/DL (14.0-18.0); Immature Granulocytes % 0.8 %; Immature Granulocytes Absolute 0.03 #; Lymphocytes # 1.3 10*3/uL (1.4-4.0); Lymphocytes % 35.6 % (21.2-54.2); Mean Corpuscular HGB Conc 32.5 GM/DL (32-36); Mean Corpuscular Volume 99.6 FL (87-102); Mean Platelet Volume 10.1 FL (9.6-12.0); Monocytes # 0.3 10*3/uL (0.11-0.8); Monocytes % 9.3 % (1.7-12.7); Platelet Count 155 T/CUMM (130-400); Red Blood Count 2.69 MC/CUMM (3.8-5.5); Red Cell Distribution Width 19.1 % (9.3-17.3); White Blood Count 3.5 T/CUMM (4-12)
[2022-02-21 04:07] LABS: Alanine Aminotransferase 18 U/L (16-61); Albumin 2.8 G/DL (3.4-5.0); Alkaline Phosphatase 101 U/L (45-117); Aspartate Amino Transferase 15 U/L (0-37); Bilirubin,Total < 0.39 MG/DL (0.20-1.00); Blood Urea Nitrogen 21 MG/DL (7-18); Calcium 8.9 MG/DL (8.5-10.1); Carbon Dioxide 23 MMOL/L (21-32); Chloride 103 MMOL/L (98-107); Glucose 205 MG/DL (74-106); Osmolality,Calculated 278.1 MOS/KG (273-304); Potassium 4.5 MMOL/L (3.5-5.1); Sodium 135 MMOL/L (136-145); Total Protein 6.6 G/DL (6.4-8.2)
[2022-02-21] MEDS: MEROPENEM 1,000 MG in SODIUM CHLORIDE 0.9% 100 ML IV SCH (06:00)
[2022-02-21] MEDS: INSULIN REGULAR 100 UNIT/ML SUBCUT SCH ×2 (08:53→12:47)
[2022-02-21] MEDS: GABAPENTIN 400 MG CAPSULE PO SCH (09:15)
[2022-02-21] MEDS: FLUTICASONE 50 MCG NASAL SPRAY 16 GM BOTTLE BOTH NARES SCH (09:19)
[2022-02-21] MEDS: HEPARIN 5,000 UNIT/1 ML VIAL SUBCUT SCH (09:19)
[2022-02-21 12:18] VITALS: BP 105/51
== END 2022-02-21 13:23 | disposition home health service (06) | DRG 689 ==
LOC: EDUNIT# → EDBD → N.ED 16:56 → N.EDINP 16:56 → SUATTDRO 22:00 → N.EDINP 02-14 01:45 → N.TELES 02-14 02:21 → SUATTDRO 02-14 07:38
PROVIDERS: ADMIT Emergency Medicine; ATTEND Hospitalist

== ENCOUNTER 2022-04-22 06:18 | Inpatient (IN) ==
[2022-04-22] MEDS ORDERED: ALBUTEROL 2.5 MG/3 ML NEB RESP TX STA (06:56)
[2022-04-22 07:11] LABS: Basophils % 0.3 % (0.0-0.8); Eosinophils % 0.3 % (0.00-10.9); Hematocrit 27.5 VOL% (42.0-52.0); Hemoglobin 8.7 GM/DL (14.0-18.0); Immature Granulocytes % 0.3 %; Immature Granulocytes Absolute 0.01 #; Lymphocytes % 28.9 % (21.2-54.2); Mean Corpuscular HGB Conc 31.6 GM/DL (32-36); Monocytes # 0.4 10*3/uL (0.11-0.8); Monocytes % 11.9 % (1.7-12.7); Neutrophils % 58.3 % (38.7-73.9); Platelet Count 122 T/CUMM (130-400); Red Blood Count 2.67 MC/CUMM (3.8-5.5); Red Cell Distribution Width 18.9 % (9.3-17.3); White Blood Count 3.4 T/CUMM (4-12)
[2022-04-22 07:21] LABS: Alanine Aminotransferase 17 U/L (16-61); Albumin 2.5 G/DL (3.4-5.0); Alkaline Phosphatase 108 U/L (45-117); Aspartate Amino Transferase 17 U/L (0-37); Bilirubin,Total < 0.39 MG/DL (0.20-1.00); Blood Urea Nitrogen 21 MG/DL (7-18); Carbon Dioxide 25 MMOL/L (21-32); Chloride 108 MMOL/L (98-107); Glucose 136 MG/DL (74-106); Osmolality,Calculated 285.3 MOS/KG (273-304); Potassium 3.3 MMOL/L (3.5-5.1); Sodium 141 MMOL/L (136-145); Total Protein 5.4 G/DL (6.4-8.2)
[2022-04-22] MEDS ORDERED: PIPERACILLIN/TAZOBACTAM 3,375 MG in SODIUM CHLORIDE 0.9% 100 ML IV STA (07:46)
[2022-04-22] MEDS ORDERED: methylPREDNISolone SOD SUC 125 MG/2 ML VIAL IV STA (07:48)
[2022-04-22 07:56] LABS: Mucus,Urine Occasional /LPF (Occasional); Squamous Epithelial Cell,Urine Occasional /HPF (0-10)
[2022-04-22 07:57] LABS: Bilirubin,Urine Negative (Negative); Blood, Urine Negative (Negative); Glucose,Urine (UA) Negative (Negative); Ketones,Urine Negative (Negative); Nitrite,Urine Negative (Negative); Protein,Urine Trace mg/dL (Negative); Urine Appearance Clear (Clear); Urine Color Yellow (Yellow); Urine Urobilinogen 0.2 eU/dL (<2.0); Urine pH 5.5 (4.5-8.0)
[2022-04-22 08:07] LABS: Band Neutrophils 14 % (0-10); Lymphocytes 27 % (20-55); Platelet Estimate Adequate; Total Cells Counted 100
[2022-04-22 08:08] LABS: Anisocytosis Slight; Hypochromia Slight; Macrocytosis 1+
[2022-04-22] MEDS ORDERED: DOCUSATE SODIUM 100 MG CAPSULE PO PRN (08:58)
[2022-04-22] MEDS ORDERED: hydrALAZINE 20 MG/1 ML VIAL IV PRN (08:58)
[2022-04-22] MEDS ORDERED: PANTOPRAZOLE 40 MG TABLET PO SCH (09:00)
[2022-04-22] MEDS ORDERED: cefTRIAXone 1,000 MG in SODIUM CHLORIDE 0.9% 100 ML IV SCH (09:30)
[2022-04-22] MEDS ORDERED: AZITHROMYCIN INJ 500 MG in SODIUM CHLORIDE 0.9% 250 ML IV SCH (10:00)
[2022-04-22] MEDS ORDERED: ALBUTEROL/IPRATROPIUM 3 ML NEB RESP TX PRN (11:03)
[2022-04-22] MEDS: SODIUM CHLOR 0.9% KCL 20 MEQ 20 MEQ/1,000 ML BAG IV SCH (12:05)
[2022-04-22] MEDS: ALBUTEROL/IPRATROPIUM 3 ML NEB RESP TX SCH ×2 (15:30→21:01)
[2022-04-22] MEDS: PANTOPRAZOLE 40 MG TABLET PO SCH (17:38)
[2022-04-22] MEDS: oxyCODONE/ACETAMINOPHEN 5-325 MG TABLET PO PRN (17:39)
[2022-04-22] MEDS ORDERED: INSULIN REGULAR 100 UNIT/ML SUBCUT ONE (21:47)
[2022-04-22] MEDS: GABAPENTIN 400 MG CAPSULE PO SCH (22:21)
[2022-04-22] MEDS: ERYTHROMYCIN 0.5% OPHT OINT 3.5 GM TUBE RIGHT EYE SCH (22:29)
[2022-04-23] MEDS: SODIUM CHLOR 0.9% KCL 20 MEQ 20 MEQ/1,000 ML BAG IV SCH ×2 (00:37→13:57)
[2022-04-23] MEDS: oxyCODONE/ACETAMINOPHEN 5-325 MG TABLET PO PRN ×4 (00:37→23:36)
[2022-04-23] MEDS: ALBUTEROL/IPRATROPIUM 3 ML NEB RESP TX SCH ×4 (00:58→20:27)
[2022-04-23 05:10] LABS: Basophils % 0.2 % (0.0-0.8); Hematocrit 26.5 VOL% (42.0-52.0); Hemoglobin 8.3 GM/DL (14.0-18.0); Immature Granulocytes % 0.4 %; Immature Granulocytes Absolute 0.02 #; Lymphocytes # 1.2 10*3/uL (1.4-4.0); Lymphocytes % 24.7 % (21.2-54.2); Mean Corpuscular HGB Conc 31.3 GM/DL (32-36); Mean Corpuscular Volume 102.3 FL (87-102); Mean Platelet Volume 10.1 FL (9.6-12.0); Monocytes # 0.6 10*3/uL (0.11-0.8); Monocytes % 12.7 % (1.7-12.7); Platelet Count 106 T/CUMM (130-400); Red Blood Count 2.59 MC/CUMM (3.8-5.5); Red Cell Distribution Width 18.6 % (9.3-17.3)
[2022-04-23 05:36] LABS: Alanine Aminotransferase 17 U/L (16-61); Albumin 2.4 G/DL (3.4-5.0); Alkaline Phosphatase 100 U/L (45-117); Aspartate Amino Transferase 20 U/L (0-37); Bilirubin,Total < 0.39 MG/DL (0.20-1.00); Blood Urea Nitrogen 21 MG/DL (7-18); Calcium 8.4 MG/DL (8.5-10.1); Carbon Dioxide 21 MMOL/L (21-32); Chloride 105 MMOL/L (98-107); Cholesterol 178 MG/DL (50-200); Glucose 260 MG/DL (74-106); HDL Cholesterol 110 MG/DL (40-60); Osmolality,Calculated 284.8 MOS/KG (273-304); Potassium 4.3 MMOL/L (3.5-5.1); Risk Ratio 1.62; Sodium 137 MMOL/L (136-145); Thyroid Stimulating Hormone 0.643 uIU/ml (0.358-3.74); Total Protein 6.3 G/DL (6.4-8.2); Triglycerides 58 MG/DL (2-150); VLDL Cholesterol 11.6 MG/DL
[2022-04-23 05:40] LABS: Band Neutrophils 5 % (0-10); Lymphocytes 24 % (20-55); Total Cells Counted 100
[2022-04-23 05:43] LABS: Macrocytosis 1+; Platelet Estimate Adequate
[2022-04-23] MEDS: GABAPENTIN 400 MG CAPSULE PO SCH ×3 (09:24→21:08)
[2022-04-23] MEDS: DAPAGLIFLOZIN 10 MG TABLET PO SCH (09:24)
[2022-04-23] MEDS: PANTOPRAZOLE 40 MG TABLET PO SCH ×2 (09:24→17:20)
[2022-04-23] MEDS: PIPERACILLIN/TAZOBACTAM 3,375 MG in SODIUM CHLORIDE 0.9% 100 ML IV SCH ×2 (09:28→17:21)
[2022-04-23] MEDS: ERYTHROMYCIN 0.5% OPHT OINT 3.5 GM TUBE RIGHT EYE SCH ×3 (09:31→21:10)
[2022-04-23 13:59] LABS: Arterial Base Excess iSTAT -2 MMOL/L (-2.5-2.5); Arterial Bicarbonate iSTAT 20.3 MMOL/L (20-26); Arterial O2 Saturation iSTAT 93 % (95-100); Arterial PCO2 iSTAT 26 MM HG (35-48); Arterial PO2 iSTAT 58 MM HG (80-95); Arterial Total CO2 iSTAT 21 MMO/L (23-27); Arterial pH iSTAT 7.496 (7.35-7.45)
[2022-04-23] MEDS ORDERED: FUROSEMIDE 40 MG/4 ML VIAL IV ONE ×2 (14:10→21:00)
[2022-04-23] MEDS ORDERED: LEVOFLOXACIN INJ 500 MG/100 ML PREMIX IV SCH (15:00)
[2022-04-23] MEDS: INSULIN LISPRO 100 UNIT/ML SUBCUT SCH ×2 (17:02→23:34)
[2022-04-23] MEDS ORDERED: INSULIN GLARGINE 100 UNIT/ML SUBCUT SCH (21:00)
[2022-04-23] MEDS: guaiFENesin/DM ER 600-30 MG TABLET PO SCH (21:09)
[2022-04-23] MEDS: VANCOMYCIN INJ 1,250 MG in SODIUM CHLORIDE 0.9% 250 ML IV SCH (21:10)
[2022-04-23] MEDS: INSULIN GLARGINE 100 UNIT/ML SUBCUT SCH (23:36)
[2022-04-24] MEDS: ALBUTEROL/IPRATROPIUM 3 ML NEB RESP TX SCH ×5 (00:30→23:43)
[2022-04-24] MEDS: PIPERACILLIN/TAZOBACTAM 3,375 MG in SODIUM CHLORIDE 0.9% 100 ML IV SCH ×3 (03:50→16:56)
[2022-04-24 05:19] LABS: Basophils % 0.2 % (0.0-0.8); Hematocrit 24.7 VOL% (42.0-52.0); Hemoglobin 8.2 GM/DL (14.0-18.0); Immature Granulocytes % 0.7 %; Immature Granulocytes Absolute 0.04 #; Lymphocytes # 2.1 10*3/uL (1.4-4.0); Lymphocytes % 35.5 % (21.2-54.2); Mean Corpuscular HGB Conc 33.2 GM/DL (32-36); Mean Corpuscular Volume 100.8 FL (87-102); Mean Platelet Volume 10.3 FL (9.6-12.0); Monocytes # 0.9 10*3/uL (0.11-0.8); Monocytes % 14.4 % (1.7-12.7); Neutrophils % 49.2 % (38.7-73.9); Platelet Count 132 T/CUMM (130-400); Red Blood Count 2.45 MC/CUMM (3.8-5.5); Red Cell Distribution Width 18.6 % (9.3-17.3); White Blood Count 5.9 T/CUMM (4-12)
[2022-04-24 05:41] LABS: Albumin 2.4 G/DL (3.4-5.0); Bilirubin,Total 0.4 MG/DL (0.20-1.00); Calcium 8.4 MG/DL (8.5-10.1); Potassium 3.7 MMOL/L (3.5-5.1); Total Protein 6.2 G/DL (6.4-8.2)
[2022-04-24 05:52] LABS: Lymphocytes 31 % (20-55); Platelet Estimate Adequate; Total Cells Counted 100
[2022-04-24] MEDS: oxyCODONE/ACETAMINOPHEN 5-325 MG TABLET PO PRN ×3 (07:17→22:12)
[2022-04-24] MEDS ORDERED: MAGNESIUM SULF RIDER 4 GM/100 ML PREMIX IV ONE (07:49)
[2022-04-24] MEDS: INSULIN LISPRO 100 UNIT/ML SUBCUT SCH ×3 (09:03→19:14)
[2022-04-24] MEDS: guaiFENesin/DM ER 600-30 MG TABLET PO SCH ×2 (09:04→22:12)
[2022-04-24] MEDS: PANTOPRAZOLE 40 MG TABLET PO SCH ×2 (09:04→16:56)
[2022-04-24] MEDS: DAPAGLIFLOZIN 10 MG TABLET PO SCH (09:04)
[2022-04-24] MEDS: GABAPENTIN 400 MG CAPSULE PO SCH ×3 (09:04→22:12)
[2022-04-24] MEDS: ERYTHROMYCIN 0.5% OPHT OINT 3.5 GM TUBE RIGHT EYE SCH ×3 (09:08→22:14)
[2022-04-24] MEDS ORDERED: LACTULOSE 20 GM/30 ML UDCUP PER TUBE PRN (10:22)
[2022-04-24] MEDS: VANCOMYCIN INJ 1,250 MG in SODIUM CHLORIDE 0.9% 250 ML IV SCH (10:37)
[2022-04-24] MEDS: FUROSEMIDE 40 MG/4 ML VIAL IV SCH (12:05)
[2022-04-24] MEDS: DOCUSATE SODIUM 100 MG CAPSULE PO SCH (22:12)
[2022-04-24] MEDS: INSULIN GLARGINE 100 UNIT/ML SUBCUT SCH (22:19)
[2022-04-25] MEDS: INSULIN LISPRO 100 UNIT/ML SUBCUT SCH ×4 (00:16→18:38)
[2022-04-25] MEDS: PIPERACILLIN/TAZOBACTAM 3,375 MG in SODIUM CHLORIDE 0.9% 100 ML IV SCH ×3 (00:40→18:42)
[2022-04-25 05:45] LABS: Basophils % 0.2 % (0.0-0.8); Hemoglobin 8.5 GM/DL (14.0-18.0); Immature Granulocytes % 0.2 %; Immature Granulocytes Absolute 0.01 #; Lymphocytes # 1.7 10*3/uL (1.4-4.0); Lymphocytes % 36.8 % (21.2-54.2); Mean Corpuscular HGB Conc 32.7 GM/DL (32-36); Mean Platelet Volume 10.2 FL (9.6-12.0); Monocytes # 0.8 10*3/uL (0.11-0.8); Monocytes % 15.9 % (1.7-12.7); Neutrophils % 46.9 % (38.7-73.9); Platelet Count 135 T/CUMM (130-400); Red Cell Distribution Width 18.7 % (9.3-17.3); White Blood Count 4.7 T/CUMM (4-12)
[2022-04-25 06:12] LABS: Albumin 2.3 G/DL (3.4-5.0); Bilirubin,Total 0.5 MG/DL (0.20-1.00); Calcium 7.9 MG/DL (8.5-10.1); Osmolality,Calculated 273.2 MOS/KG (273-304); Potassium 3.7 MMOL/L (3.5-5.1); Total Protein 5.7 G/DL (6.4-8.2)
[2022-04-25 06:36] LABS: Lymphocytes 34 % (20-55); Total Cells Counted 100
[2022-04-25 06:37] LABS: Platelet Estimate Decreased
[2022-04-25] MEDS: ALBUTEROL/IPRATROPIUM 3 ML NEB RESP TX SCH ×3 (06:51→19:32)
[2022-04-25] MEDS: guaiFENesin/DM ER 600-30 MG TABLET PO SCH ×2 (11:37→22:33)
[2022-04-25] MEDS: DAPAGLIFLOZIN 10 MG TABLET PO SCH (11:37)
[2022-04-25] MEDS: DOCUSATE SODIUM 100 MG CAPSULE PO SCH ×2 (11:37→22:33)
[2022-04-25] MEDS: GABAPENTIN 400 MG CAPSULE PO SCH ×3 (11:37→22:33)
[2022-04-25] MEDS: PANTOPRAZOLE 40 MG TABLET PO SCH (11:37)
[2022-04-25] MEDS: FUROSEMIDE 40 MG/4 ML VIAL IV SCH (11:40)
[2022-04-25] MEDS: ERYTHROMYCIN 0.5% OPHT OINT 3.5 GM TUBE RIGHT EYE SCH ×3 (11:47→22:32)
[2022-04-25] MEDS: OMEPRAZOLE ODT 20 MG TABLET PO SCH (16:44)
[2022-04-25] MEDS: DOCUSATE SODIUM 100 MG/10 ML UDCUP PO SCH (22:32)
[2022-04-25] MEDS: oxyCODONE/ACETAMINOPHEN 5-325 MG TABLET PO PRN (22:32)
[2022-04-26] MEDS: ALBUTEROL/IPRATROPIUM 3 ML NEB RESP TX SCH ×4 (00:14→19:32)
[2022-04-26] MEDS: INSULIN GLARGINE 100 UNIT/ML SUBCUT SCH ×2 (00:34→21:42)
[2022-04-26] MEDS: INSULIN LISPRO 100 UNIT/ML SUBCUT SCH ×4 (00:34→17:53)
[2022-04-26] MEDS: PIPERACILLIN/TAZOBACTAM 3,375 MG in SODIUM CHLORIDE 0.9% 100 ML IV SCH ×3 (03:44→18:00)
[2022-04-26 07:29] LABS: Basophils % 0.2 % (0.0-0.8); Eosinophils % 0.2 % (0.00-10.9); Hematocrit 24.8 VOL% (42.0-52.0); Hemoglobin 7.9 GM/DL (14.0-18.0); Immature Granulocytes % 0.2 %; Immature Granulocytes Absolute 0.01 #; Lymphocytes # 1.1 10*3/uL (1.4-4.0); Lymphocytes % 21.7 % (21.2-54.2); Mean Corpuscular HGB Conc 31.9 GM/DL (32-36); Mean Corpuscular Volume 102.9 FL (87-102); Mean Platelet Volume 9.9 FL (9.6-12.0); Monocytes # 0.6 10*3/uL (0.11-0.8); Monocytes % 12.9 % (1.7-12.7); Neutrophils % 64.8 % (38.7-73.9); Platelet Count 160 T/CUMM (130-400); Red Blood Count 2.41 MC/CUMM (3.8-5.5)
[2022-04-26 07:56] LABS: Calcium 8.3 MG/DL (8.5-10.1); Osmolality,Calculated 282.7 MOS/KG (273-304); Potassium 3.6 MMOL/L (3.5-5.1)
[2022-04-26 08:12] LABS: Band Neutrophils 2 % (0-10); Eosinophils 1 % (0-10); Lymphocytes 28 % (20-55); Total Cells Counted 100
[2022-04-26 08:13] LABS: Anisocytosis 1+; Macrocytosis 1+; Platelet Estimate Adequate
[2022-04-26] MEDS: guaiFENesin/DM ER 600-30 MG TABLET PO SCH ×2 (09:20→21:42)
[2022-04-26] MEDS: DAPAGLIFLOZIN 10 MG TABLET PO SCH (09:20)
[2022-04-26] MEDS: OMEPRAZOLE ODT 20 MG TABLET PO SCH ×2 (09:20→17:52)
[2022-04-26] MEDS: GABAPENTIN 400 MG CAPSULE PO SCH ×3 (09:20→21:42)
[2022-04-26] MEDS: DOCUSATE SODIUM 100 MG/10 ML UDCUP PO SCH ×2 (09:20→21:42)
[2022-04-26] MEDS: ERYTHROMYCIN 0.5% OPHT OINT 3.5 GM TUBE RIGHT EYE SCH ×3 (09:21→21:42)
[2022-04-26] MEDS: FUROSEMIDE 40 MG/4 ML VIAL IV SCH (09:21)
[2022-04-26] MEDS: oxyCODONE/ACETAMINOPHEN 5-325 MG TABLET PO PRN ×2 (14:02→21:42)
[2022-04-27] MEDS: ALBUTEROL/IPRATROPIUM 3 ML NEB RESP TX SCH ×4 (00:30→20:51)
[2022-04-27] MEDS: INSULIN LISPRO 100 UNIT/ML SUBCUT SCH ×4 (03:26→17:59)
[2022-04-27] MEDS: PIPERACILLIN/TAZOBACTAM 3,375 MG in SODIUM CHLORIDE 0.9% 100 ML IV SCH ×3 (03:26→18:01)
[2022-04-27] MEDS: oxyCODONE/ACETAMINOPHEN 5-325 MG TABLET PO PRN ×3 (05:18→22:34)
[2022-04-27 05:45] LABS: Basophils % 0.2 % (0.0-0.8); Eosinophils % 0.6 % (0.00-10.9); Hematocrit 27.7 VOL% (42.0-52.0); Immature Granulocytes % 0.4 %; Immature Granulocytes Absolute 0.02 #; Lymphocytes # 1.3 10*3/uL (1.4-4.0); Lymphocytes % 26.6 % (21.2-54.2); Mean Corpuscular HGB Conc 32.5 GM/DL (32-36); Mean Corpuscular Volume 101.5 FL (87-102); Mean Platelet Volume 10.5 FL (9.6-12.0); Monocytes # 0.7 10*3/uL (0.11-0.8); Monocytes % 13.1 % (1.7-12.7); Neutrophils % 59.1 % (38.7-73.9); Platelet Count 206 T/CUMM (130-400); Red Blood Count 2.73 MC/CUMM (3.8-5.5); Red Cell Distribution Width 18.7 % (9.3-17.3)
[2022-04-27 06:14] LABS: Calcium 8.9 MG/DL (8.5-10.1); Osmolality,Calculated 288.3 MOS/KG (273-304); Potassium 3.2 MMOL/L (3.5-5.1)
[2022-04-27 06:45] LABS: Band Neutrophils 3 % (0-10); Eosinophils 1 % (0-10); Lymphocytes 28 % (20-55); Total Cells Counted 100
[2022-04-27 06:46] LABS: Hypochromia Slight; Macrocytosis 1+
[2022-04-27 06:47] LABS: Platelet Estimate Normal
[2022-04-27] MEDS: GABAPENTIN 400 MG CAPSULE PO SCH ×3 (08:23→22:34)
[2022-04-27] MEDS: DAPAGLIFLOZIN 10 MG TABLET PO SCH (08:23)
[2022-04-27] MEDS: POTASSIUM CHLORIDE 20 MEQ TABLET PO PRN ×4 (08:23→14:26)
[2022-04-27] MEDS: guaiFENesin/DM ER 600-30 MG TABLET PO SCH ×2 (08:23→22:34)
[2022-04-27] MEDS: DOCUSATE SODIUM 100 MG/10 ML UDCUP PO SCH ×2 (08:23→22:34)
[2022-04-27] MEDS: OMEPRAZOLE ODT 20 MG TABLET PO SCH ×2 (08:23→16:05)
[2022-04-27] MEDS: FUROSEMIDE 40 MG/4 ML VIAL IV SCH (08:24)
[2022-04-27] MEDS: ERYTHROMYCIN 0.5% OPHT OINT 3.5 GM TUBE RIGHT EYE SCH ×3 (10:31→22:33)
[2022-04-27] MEDS: INSULIN GLARGINE 100 UNIT/ML SUBCUT SCH (22:34)
[2022-04-28] MEDS: ALBUTEROL/IPRATROPIUM 3 ML NEB RESP TX SCH ×4 (01:40→19:30)
[2022-04-28] MEDS: INSULIN LISPRO 100 UNIT/ML SUBCUT SCH ×5 (02:35→23:55)
[2022-04-28] MEDS: PIPERACILLIN/TAZOBACTAM 3,375 MG in SODIUM CHLORIDE 0.9% 100 ML IV SCH ×3 (02:35→23:55)
[2022-04-28 05:45] LABS: Basophils % 0.4 % (0.0-0.8); Eosinophils % 0.4 % (0.00-10.9); Hematocrit 29.9 VOL% (42.0-52.0); Hemoglobin 9.6 GM/DL (14.0-18.0); Immature Granulocytes % 0.7 %; Immature Granulocytes Absolute 0.04 #; Lymphocytes # 1.8 10*3/uL (1.4-4.0); Lymphocytes % 31.6 % (21.2-54.2); Mean Corpuscular HGB Conc 32.1 GM/DL (32-36); Monocytes # 0.7 10*3/uL (0.11-0.8); Monocytes % 12.8 % (1.7-12.7); Neutrophils % 54.1 % (38.7-73.9); Platelet Count 237 T/CUMM (130-400); Red Blood Count 2.93 MC/CUMM (3.8-5.5); Red Cell Distribution Width 18.8 % (9.3-17.3); White Blood Count 5.6 T/CUMM (4-12)
[2022-04-28 06:15] LABS: Osmolality,Calculated 287.4 MOS/KG (273-304); Potassium 3.5 MMOL/L (3.5-5.1)
[2022-04-28 06:23] LABS: Eosinophils 1 % (0-10); Lymphocytes 27 % (20-55); Total Cells Counted 100
[2022-04-28 06:24] LABS: Hypochromia Slight; Microcytosis Slight; Platelet Estimate Adequate
[2022-04-28] MEDS ORDERED: ALBUTEROL 2.5 MG/3 ML NEB RESP TX ONE (07:04)
[2022-04-28] MEDS ORDERED: MIDODRINE 5 MG TABLET PO PRN (07:21)
[2022-04-28] MEDS ORDERED: ASPIRIN CHEW 81 MG TABLET PO PRN (07:21)
[2022-04-28] MEDS: OMEPRAZOLE ODT 20 MG TABLET PO SCH ×2 (09:44→17:30)
[2022-04-28] MEDS: DOCUSATE SODIUM 100 MG/10 ML UDCUP PO SCH ×2 (09:44→23:54)
[2022-04-28] MEDS: guaiFENesin/DM ER 600-30 MG TABLET PO SCH ×2 (09:44→23:54)
[2022-04-28] MEDS: POTASSIUM CHLORIDE 20 MEQ TABLET PO PRN ×2 (09:45→17:31)
[2022-04-28] MEDS: GABAPENTIN 400 MG CAPSULE PO SCH ×3 (09:45→23:54)
[2022-04-28] MEDS: DAPAGLIFLOZIN 10 MG TABLET PO SCH (09:45)
[2022-04-28] MEDS: ERYTHROMYCIN 0.5% OPHT OINT 3.5 GM TUBE RIGHT EYE SCH ×3 (09:45→23:55)
[2022-04-28] MEDS: FUROSEMIDE 40 MG/4 ML VIAL IV SCH (09:45)
[2022-04-28] MEDS: DEXTROSE 5% NACL 0.45% 1,000 ML IV SCH ×2 (09:47→23:53)
[2022-04-28] MEDS: oxyCODONE/ACETAMINOPHEN 5-325 MG TABLET PO PRN ×2 (17:29→23:54)
[2022-04-28] MEDS: MIRTAZAPINE 15 MG TABLET PO SCH (23:54)
[2022-04-28] MEDS: INSULIN GLARGINE 100 UNIT/ML SUBCUT SCH (23:55)
[2022-04-29] MEDS: ALBUTEROL/IPRATROPIUM 3 ML NEB RESP TX SCH ×4 (00:21→19:08)
[2022-04-29] MEDS: PIPERACILLIN/TAZOBACTAM 3,375 MG in SODIUM CHLORIDE 0.9% 100 ML IV SCH ×3 (03:48→22:33)
[2022-04-29 04:36] LABS: Basophils % 0.6 % (0.0-0.8); Eosinophils % 0.6 % (0.00-10.9); Hematocrit 27.2 VOL% (42.0-52.0); Hemoglobin 8.6 GM/DL (14.0-18.0); Immature Granulocytes % 0.6 %; Immature Granulocytes Absolute 0.03 #; Lymphocytes % 38.1 % (21.2-54.2); Mean Corpuscular HGB Conc 31.6 GM/DL (32-36); Mean Platelet Volume 10.1 FL (9.6-12.0); Monocytes # 0.7 10*3/uL (0.11-0.8); Neutrophils % 46.1 % (38.7-73.9); Platelet Count 217 T/CUMM (130-400); Red Blood Count 2.64 MC/CUMM (3.8-5.5); Red Cell Distribution Width 18.8 % (9.3-17.3); White Blood Count 5.3 T/CUMM (4-12)
[2022-04-29 04:55] LABS: Calcium 8.8 MG/DL (8.5-10.1); Osmolality,Calculated 291.1 MOS/KG (273-304); Potassium 3.5 MMOL/L (3.5-5.1)
[2022-04-29 05:04] LABS: Lymphocytes 43 % (20-55); Platelet Estimate Adequate; Total Cells Counted 100
[2022-04-29 05:05] LABS: Hypochromia Slight; Microcytosis Slight
[2022-04-29] MEDS: INSULIN LISPRO 100 UNIT/ML SUBCUT SCH ×4 (06:44→23:35)
[2022-04-29] MEDS: OMEPRAZOLE ODT 20 MG TABLET PO SCH ×2 (10:32→17:47)
[2022-04-29] MEDS: GABAPENTIN 400 MG CAPSULE PO SCH ×3 (10:32→22:30)
[2022-04-29] MEDS: POTASSIUM CHLORIDE 20 MEQ TABLET PO PRN (10:32)
[2022-04-29] MEDS: guaiFENesin/DM ER 600-30 MG TABLET PO SCH ×2 (10:32→22:32)
[2022-04-29] MEDS: DOCUSATE SODIUM 100 MG/10 ML UDCUP PO SCH ×2 (10:32→22:29)
[2022-04-29] MEDS: POLYETHYLENE GLYCOL POWDER 17 GM PACK PER TUBE SCH ×2 (10:33→22:30)
[2022-04-29] MEDS: DAPAGLIFLOZIN 10 MG TABLET PO SCH (10:33)
[2022-04-29] MEDS: ERYTHROMYCIN 0.5% OPHT OINT 3.5 GM TUBE RIGHT EYE SCH ×3 (10:33→22:28)
[2022-04-29] MEDS: oxyCODONE/ACETAMINOPHEN 5-325 MG TABLET PO PRN ×2 (14:35→22:29)
[2022-04-29] MEDS: DEXTROSE 5% NACL 0.45% 1,000 ML IV SCH ×2 (14:35→16:37)
[2022-04-29] MEDS: MIRTAZAPINE 15 MG TABLET PO SCH (22:29)
[2022-04-29] MEDS: INSULIN GLARGINE 100 UNIT/ML SUBCUT SCH (23:35)
[2022-04-30] MEDS: ALBUTEROL/IPRATROPIUM 3 ML NEB RESP TX SCH ×3 (00:05→13:43)
[2022-04-30] MEDS: PIPERACILLIN/TAZOBACTAM 3,375 MG in SODIUM CHLORIDE 0.9% 100 ML IV SCH (04:51)
[2022-04-30 05:12] LABS: Basophils % 0.4 % (0.0-0.8); Eosinophils # 0.1 10*3/uL (0.0-0.87); Eosinophils % 0.8 % (0.00-10.9); Hematocrit 28.5 VOL% (42.0-52.0); Immature Granulocytes % 0.3 %; Immature Granulocytes Absolute 0.02 #; Lymphocytes # 2.8 10*3/uL (1.4-4.0); Lymphocytes % 39.4 % (21.2-54.2); Mean Corpuscular HGB Conc 31.6 GM/DL (32-36); Mean Corpuscular Volume 104.8 FL (87-102); Mean Platelet Volume 9.8 FL (9.6-12.0); Monocytes # 0.7 10*3/uL (0.11-0.8); Monocytes % 9.2 % (1.7-12.7); Neutrophils % 49.9 % (38.7-73.9); Platelet Count 215 T/CUMM (130-400); Red Blood Count 2.72 MC/CUMM (3.8-5.5); Red Cell Distribution Width 19.3 % (9.3-17.3); White Blood Count 7.2 T/CUMM (4-12)
[2022-04-30 05:34] LABS: Alanine Aminotransferase 15 U/L (16-61); Albumin 2.4 G/DL (3.4-5.0); Alkaline Phosphatase 139 U/L (45-117); Aspartate Amino Transferase 12 U/L (0-37); Bilirubin,Total < 0.39 MG/DL (0.20-1.00); Blood Urea Nitrogen 17 MG/DL (7-18); Calcium 9.2 MG/DL (8.5-10.1); Carbon Dioxide 29 MMOL/L (21-32); Chloride 109 MMOL/L (98-107); Glucose 203 MG/DL (74-106); Potassium 4.1 MMOL/L (3.5-5.1); Sodium 143 MMOL/L (136-145); Total Protein 6.3 G/DL (6.4-8.2)
[2022-04-30 05:41] LABS: Anisocytosis 1+; Lymphocytes 50 % (20-55); Total Cells Counted 100
[2022-04-30] MEDS: DEXTROSE 5% NACL 0.45% 1,000 ML IV SCH (05:41)
[2022-04-30 05:42] LABS: Platelet Estimate Normal; Polychromasia Slight; Target Cells Slight
[2022-04-30] MEDS: INSULIN LISPRO 100 UNIT/ML SUBCUT SCH ×2 (06:33→12:43)
[2022-04-30] MEDS ORDERED: PROMETHAZINE 25 MG/1 ML VIAL IM ONE (07:30)
[2022-04-30] MEDS ORDERED: MEPERIDINE 50 MG/1 ML VIAL IM ONE (08:00)
[2022-04-30] MEDS ORDERED: MIDAZOLAM 2 MG/2 ML VIAL IV ONE (08:00)
[2022-04-30] MEDS ORDERED: LIDOCAINE 1% 20 ML VIAL MISC INJ ONE (08:00)
[2022-04-30] MEDS ORDERED: LIDOCAINE 2% VISCOUS 100 ML BOTTLE SWISH/SPIT ONE (08:00)
[2022-04-30] MEDS ORDERED: LIDOCAINE 2% 20 ML VIAL RESP TX ONE (08:00)
[2022-04-30] MEDS ORDERED: CEFUROXIME 500 MG TABLET PEG SCH (09:00)
[2022-04-30] MEDS: ERYTHROMYCIN 0.5% OPHT OINT 3.5 GM TUBE RIGHT EYE SCH ×2 (09:56→15:45)
[2022-04-30] MEDS: guaiFENesin/DM ER 600-30 MG TABLET PO SCH (09:57)
[2022-04-30] MEDS: POLYETHYLENE GLYCOL POWDER 17 GM PACK PER TUBE SCH (09:57)
[2022-04-30] MEDS: DAPAGLIFLOZIN 10 MG TABLET PO SCH (09:57)
[2022-04-30] MEDS: GABAPENTIN 400 MG CAPSULE PO SCH ×2 (09:57→15:45)
[2022-04-30] MEDS: OMEPRAZOLE ODT 20 MG TABLET PO SCH (09:58)
[2022-04-30] MEDS: oxyCODONE/ACETAMINOPHEN 5-325 MG TABLET PO PRN (09:59)
[2022-04-30] MEDS: DOCUSATE SODIUM 100 MG/10 ML UDCUP PO SCH (12:42)
[2022-04-30 14:08] VITALS: BP 119/64
== END 2022-04-30 15:01 | disposition home health service (06) | DRG 177 ==
LOC: EDUNIT# → EDBD → N.ED 06:18 → N.EDINP 08:45 → SUATTDRO 08:45 → N.EDINP 15:26 → N.TELES 15:45
PROVIDERS: ADMIT Internal Medicine Geriatric Medicine; ATTEND Family Medicine

== ENCOUNTER 2022-05-13 19:50 | Observation (INO) ==
[2022-05-13] MEDS ORDERED: methylPREDNISolone SOD SUC 125 MG/2 ML VIAL IV STA (20:26)
[2022-05-13] MEDS ORDERED: ALBUTEROL/IPRATROPIUM 3 ML NEB RESP TX STA (20:26)
[2022-05-13] MEDS ORDERED: PIPERACILLIN/TAZOBACTAM 3,375 MG in SODIUM CHLORIDE 0.9% 100 ML IV STA (20:26)
[2022-05-13] MEDS ORDERED: SODIUM CHLORIDE 0.9% 1,000 ML IV STA (20:26)
[2022-05-13] MEDS ORDERED: CLINDAMYCIN INJ 600 MG/50 ML PREMIX IV STA (20:26)
[2022-05-13] MEDS ORDERED: PANTOPRAZOLE 40 MG VIAL IV STA (20:29)
[2022-05-13] MEDS ORDERED: ALBUTEROL NEB SOLN 5 MG/ML 20 ML/BOTTLE CONT NEB SCH (20:30)
[2022-05-13 21:03] LABS: Basophils % 0.4 % (0.0-0.8); Eosinophils # 0.1 10*3/uL (0.0-0.87); Eosinophils % 0.7 % (0.00-10.9); Hematocrit 36.5 VOL% (42.0-52.0); Hemoglobin 11.4 GM/DL (14.0-18.0); Immature Granulocytes % 0.4 %; Immature Granulocytes Absolute 0.03 #; Lymphocytes # 2.6 10*3/uL (1.4-4.0); Lymphocytes % 37.9 % (21.2-54.2); Mean Corpuscular HGB Conc 31.2 GM/DL (32-36); Mean Corpuscular Volume 103.4 FL (87-102); Monocytes # 0.2 10*3/uL (0.11-0.8); Monocytes % 2.5 % (1.7-12.7); Neutrophils % 58.1 % (38.7-73.9); Platelet Count 257 T/CUMM (130-400); Red Blood Count 3.53 MC/CUMM (3.8-5.5); Red Cell Distribution Width 18.2 % (9.3-17.3); White Blood Count 6.8 T/CUMM (4-12)
[2022-05-13 21:17] LABS: INR 0.9; PT Patient Result 10.1 SECS (10.1-12.1)
[2022-05-13 21:22] LABS: Bilirubin,Total 0.4 MG/DL (0.20-1.00); Calcium 9.7 MG/DL (8.5-10.1); Potassium 4.7 MMOL/L (3.5-5.1); Total Protein 8.4 G/DL (6.4-8.2)
[2022-05-13 21:30] LABS: Band Neutrophils 10 % (0-10); Lymphocytes 23 % (20-55); Macrocytosis 1+; Nucleated Red Blood Cells 5 /100 WBC (0-5); Platelet Estimate Normal; Total Cells Counted 100
[2022-05-13] MEDS ORDERED: ACETAMINOPHEN 325 MG TABLET PEG PRN (22:38)
[2022-05-13] MEDS ORDERED: hydrALAZINE 20 MG/1 ML VIAL IV PRN (22:38)
[2022-05-13] MEDS ORDERED: cefTRIAXone 1,000 MG in SODIUM CHLORIDE 0.9% 100 ML IV SCH (23:00)
[2022-05-13] MEDS ORDERED: AZITHROMYCIN INJ 500 MG in SODIUM CHLORIDE 0.9% 250 ML IV SCH (23:00)
[2022-05-14] MEDS: ALBUTEROL/IPRATROPIUM 3 ML NEB RESP TX SCH ×4 (00:16→19:07)
[2022-05-14 03:59] LABS: Hyaline Casts,Urine 1 /LPF (0-3); RBC,Urine 1 /HPF (0-4); Squamous Epithelial Cell,Urine Occasional /HPF (0-10)
[2022-05-14 04:00] LABS: Bilirubin,Urine Negative (Negative); Blood, Urine Trace mg/dL (Negative); Glucose,Urine (UA) 500 mg/dL (Negative); Ketones,Urine Negative (Negative); Nitrite,Urine Positive (Negative); Protein,Urine Negative (Negative); Urine Appearance Clear (Clear); Urine Color Yellow (Yellow); Urine Specific Gravity 1.015 (1.001-1.035); Urine Urobilinogen 0.2 eU/dL (<2.0); Urine pH 5.5 (4.5-8.0)
[2022-05-14 05:06] LABS: Basophils % 0.5 % (0.0-0.8); Immature Granulocytes % 0.7 %; Immature Granulocytes Absolute 0.03 #; Lymphocytes # 0.4 10*3/uL (1.4-4.0); Mean Corpuscular Volume 103.9 FL (87-102); Mean Platelet Volume 10.3 FL (9.6-12.0); Monocytes % 0.5 % (1.7-12.7); Neutrophils % 89.3 % (38.7-73.9); Platelet Count 192 T/CUMM (130-400); Red Blood Count 2.79 MC/CUMM (3.8-5.5); Red Cell Distribution Width 18.1 % (9.3-17.3)
[2022-05-14 05:27] LABS: Calcium 8.6 MG/DL (8.5-10.1); Osmolality,Calculated 287.1 MOS/KG (273-304); Potassium 4.4 MMOL/L (3.5-5.1)
[2022-05-14] MEDS: PIPERACILLIN/TAZOBACTAM 3,375 MG in SODIUM CHLORIDE 0.9% 100 ML IV SCH ×2 (09:26→15:18)
[2022-05-14] MEDS: PANTOPRAZOLE 40 MG VIAL IV SCH (09:27)
[2022-05-14] MEDS: ENOXAPARIN 40 MG/0.4 ML SYRINGE SUBCUT SCH (09:27)
[2022-05-14] MEDS: oxyCODONE/ACETAMINOPHEN 5-325 MG TABLET PO PRN ×2 (09:28→21:14)
[2022-05-14 12:41] LABS: % Iron Saturation 12.4 % (18-50)
[2022-05-14 12:48] LABS: Folate 22.27 NG/ML (5.38-24.0)
[2022-05-14] MEDS: INSULIN REGULAR 100 UNIT/ML SUBCUT SCH ×2 (16:41→20:29)
[2022-05-14] MEDS ORDERED: FERRIC GLUCONATE COMPLEX 125 MG in SODIUM CHLORIDE 0.9% 100 ML IV ONE (17:00)
[2022-05-15] MEDS: PIPERACILLIN/TAZOBACTAM 3,375 MG in SODIUM CHLORIDE 0.9% 100 ML IV SCH ×3 (00:15→18:13)
[2022-05-15] MEDS: ALBUTEROL/IPRATROPIUM 3 ML NEB RESP TX SCH ×4 (01:05→19:16)
[2022-05-15 05:14] LABS: Basophils % 0.5 % (0.0-0.8); Eosinophils % 0.2 % (0.00-10.9); Hematocrit 27.1 VOL% (42.0-52.0); Hemoglobin 8.5 GM/DL (14.0-18.0); Immature Granulocytes % 0.7 %; Immature Granulocytes Absolute 0.04 #; Lymphocytes # 2.8 10*3/uL (1.4-4.0); Lymphocytes % 51.4 % (21.2-54.2); Mean Corpuscular HGB Conc 31.4 GM/DL (32-36); Mean Corpuscular Volume 101.9 FL (87-102); Mean Platelet Volume 9.9 FL (9.6-12.0); Monocytes # 0.3 10*3/uL (0.11-0.8); Monocytes % 5.1 % (1.7-12.7); Neutrophils % 42.1 % (38.7-73.9); Platelet Count 180 T/CUMM (130-400); Red Blood Count 2.66 MC/CUMM (3.8-5.5); Red Cell Distribution Width 17.9 % (9.3-17.3); White Blood Count 5.5 T/CUMM (4-12)
[2022-05-15 05:33] LABS: Calcium 8.6 MG/DL (8.5-10.1); Phosphorous 2.8 MG/DL (2.5-4.9); Potassium 4.2 MMOL/L (3.5-5.1)
[2022-05-15 05:35] LABS: Band Neutrophils 1 % (0-10); Lymphocytes 46 % (20-55); Platelet Estimate Adequate; Total Cells Counted 100
[2022-05-15 05:36] LABS: Hypochromia Slight; Microcytosis Slight
[2022-05-15 05:37] LABS: Atypical Lymphocytes Few
[2022-05-15] MEDS ORDERED: LIDOCAINE 2% 20 ML VIAL RESP TX ONE (07:00)
[2022-05-15] MEDS ORDERED: LIDOCAINE 2% VISCOUS 100 ML BOTTLE SWISH/SPIT ONE (07:00)
[2022-05-15] MEDS ORDERED: MIDAZOLAM 2 MG/2 ML VIAL ONE (07:46)
[2022-05-15] MEDS ORDERED: MIDAZOLAM 2 MG/2 ML VIAL IV ONE (07:48)
[2022-05-15] MEDS ORDERED: LIDOCAINE 1% 20 ML VIAL MISC INJ ONE (07:55)
[2022-05-15] MEDS ORDERED: MAGNESIUM SULF RIDER 2 GM/50 ML PREMIX IV ONE (08:27)
[2022-05-15] MEDS: ENOXAPARIN 40 MG/0.4 ML SYRINGE SUBCUT SCH (09:47)
[2022-05-15] MEDS: FERROUS SULFATE 325 MG TABLET PO SCH ×2 (09:47→21:40)
[2022-05-15] MEDS: INSULIN REGULAR 100 UNIT/ML SUBCUT SCH ×4 (09:47→21:40)
[2022-05-15] MEDS: CHOLECALCIFEROL 1,000 UNIT TABLET PO SCH (09:47)
[2022-05-15] MEDS: PANTOPRAZOLE 40 MG VIAL IV SCH (09:48)
[2022-05-15] MEDS: CHOLECALCIFEROL 5,000 UNIT TABLET PO SCH (10:02)
[2022-05-15] MEDS: oxyCODONE/ACETAMINOPHEN 5-325 MG TABLET PO PRN (18:16)
[2022-05-16] MEDS: ALBUTEROL/IPRATROPIUM 3 ML NEB RESP TX SCH ×3 (00:06→07:10)
[2022-05-16] MEDS: PIPERACILLIN/TAZOBACTAM 3,375 MG in SODIUM CHLORIDE 0.9% 100 ML IV SCH ×2 (00:41→09:22)
[2022-05-16] MEDS: oxyCODONE/ACETAMINOPHEN 5-325 MG TABLET PO PRN (04:24)
[2022-05-16 05:18] LABS: Basophils % 0.5 % (0.0-0.8); Eosinophils % 0.3 % (0.00-10.9); Hematocrit 29.7 VOL% (42.0-52.0); Hemoglobin 9.3 GM/DL (14.0-18.0); Immature Granulocytes % 0.5 %; Immature Granulocytes Absolute 0.03 #; Lymphocytes # 2.6 10*3/uL (1.4-4.0); Lymphocytes % 42.3 % (21.2-54.2); Mean Corpuscular HGB Conc 31.3 GM/DL (32-36); Mean Corpuscular Volume 104.2 FL (87-102); Mean Platelet Volume 10.1 FL (9.6-12.0); Monocytes # 0.4 10*3/uL (0.11-0.8); Monocytes % 6.2 % (1.7-12.7); Neutrophils % 50.2 % (38.7-73.9); Platelet Count 197 T/CUMM (130-400); Red Blood Count 2.85 MC/CUMM (3.8-5.5); Red Cell Distribution Width 17.9 % (9.3-17.3); White Blood Count 6.1 T/CUMM (4-12)
[2022-05-16 05:36] LABS: Calcium 8.8 MG/DL (8.5-10.1); Osmolality,Calculated 269.4 MOS/KG (273-304); Potassium 4.5 MMOL/L (3.5-5.1)
[2022-05-16 05:49] LABS: Eosinophils 2 % (0-10); Lymphocytes 44 % (20-55); Metamyelocytes 1 %; Total Cells Counted 100
[2022-05-16 05:50] LABS: Macrocytosis 1+; Platelet Estimate Adequate
[2022-05-16] MEDS ORDERED: MAGNESIUM SULF RIDER 4 GM/100 ML PREMIX IV ONE (07:59)
[2022-05-16] MEDS: INSULIN REGULAR 100 UNIT/ML SUBCUT SCH ×2 (09:21→12:09)
[2022-05-16] MEDS: CHOLECALCIFEROL 1,000 UNIT TABLET PO SCH (09:23)
[2022-05-16] MEDS: FERROUS SULFATE 325 MG TABLET PO SCH (09:23)
[2022-05-16] MEDS: CHOLECALCIFEROL 5,000 UNIT TABLET PO SCH (09:23)
[2022-05-16] MEDS: PANTOPRAZOLE 40 MG VIAL IV SCH (09:23)
[2022-05-16] MEDS: ENOXAPARIN 40 MG/0.4 ML SYRINGE SUBCUT SCH (09:23)
[2022-05-16 11:53] VITALS: BP 149/66
== END 2022-05-16 15:52 | disposition home or self-care (01) ==
LOC: N.ED 19:50 → N.5E 19:50 → N.TELES 05-14 01:27
PROVIDERS: ADMIT Internal Medicine; ATTEND Internal Medicine

== ENCOUNTER 2022-06-02 08:41 | Inpatient (IN) ==
[2022-06-02] MEDS ORDERED: ALBUTEROL/IPRATROPIUM 3 ML NEB RESP TX STA (09:13)
[2022-06-02 09:59] LABS: Basophils # 0.1 10*3/uL (0.0-0.2); Basophils % 0.4 % (0.0-0.8); Eosinophils # 0.1 10*3/uL (0.0-0.87); Eosinophils % 0.7 % (0.00-10.9); Hematocrit 29.6 VOL% (42.0-52.0); Hemoglobin 9.3 GM/DL (14.0-18.0); Immature Granulocytes % 0.6 %; Immature Granulocytes Absolute 0.07 #; Lymphocytes # 2.7 10*3/uL (1.4-4.0); Lymphocytes % 24.2 % (21.2-54.2); Mean Corpuscular HGB Conc 31.4 GM/DL (32-36); Mean Corpuscular Volume 102.4 FL (87-102); Mean Platelet Volume 8.9 FL (9.6-12.0); Monocytes # 1.1 10*3/uL (0.11-0.8); Monocytes % 9.7 % (1.7-12.7); Neutrophils % 64.4 % (38.7-73.9); Platelet Count 266 T/CUMM (130-400); Red Blood Count 2.89 MC/CUMM (3.8-5.5); Red Cell Distribution Width 18.5 % (9.3-17.3); White Blood Count 11.3 T/CUMM (4-12)
[2022-06-02 10:08] LABS: INR 0.9; PT Patient Result 9.8 SECS (10.1-12.1)
[2022-06-02 10:09] LABS: Eosinophils 2 % (0-10); Lymphocytes 17 % (20-55); Platelet Estimate Adequate; Total Cells Counted 100
[2022-06-02 10:23] LABS: Alanine Aminotransferase 18 U/L (16-61); Albumin 2.7 G/DL (3.4-5.0); Alkaline Phosphatase 115 U/L (45-117); Aspartate Amino Transferase 17 U/L (0-37); Bilirubin,Total < 0.39 MG/DL (0.20-1.00); Blood Urea Nitrogen 10 MG/DL (7-18); Calcium 8.3 MG/DL (8.5-10.1); Carbon Dioxide 26 MMOL/L (21-32); Chloride 107 MMOL/L (98-107); Glucose 103 MG/DL (74-106); Osmolality,Calculated 277.4 MOS/KG (273-304); Sodium 140 MMOL/L (136-145); Total Protein 6.4 G/DL (6.4-8.2)
[2022-06-02] MEDS ORDERED: VANCOMYCIN INJ 1,000 MG in SODIUM CHLORIDE 0.9% 250 ML IV STA (10:44)
[2022-06-02] MEDS ORDERED: FUROSEMIDE 40 MG/4 ML VIAL IV STA (10:44)
[2022-06-02] MEDS ORDERED: PIPERACILLIN/TAZOBACTAM 3,375 MG in SODIUM CHLORIDE 0.9% 100 ML IV STA (10:44)
[2022-06-02] MEDS ORDERED: ACETAMINOPHEN 325 MG TABLET PO PRN (10:59)
[2022-06-02] MEDS ORDERED: GLUCAGON 1 MG VIAL IM PRN (10:59)
[2022-06-02] MEDS ORDERED: DOCUSATE SODIUM 100 MG CAPSULE PO PRN (10:59)
[2022-06-02] MEDS ORDERED: DEXTROSE 10% 250 ML BAG IV PRN (10:59)
[2022-06-02 12:44] LABS: Phosphorous 3.9 MG/DL (2.5-4.9)
[2022-06-02] MEDS: INSULIN LISPRO 100 UNIT/ML SUBCUT SCH ×3 (13:15→21:56)
[2022-06-02] MEDS: VANCOMYCIN INJ 1,250 MG in SODIUM CHLORIDE 0.9% 250 ML IV SCH (15:14)
[2022-06-02] MEDS: ENOXAPARIN 40 MG/0.4 ML SYRINGE SUBCUT SCH (15:15)
[2022-06-02] MEDS: ALBUTEROL/IPRATROPIUM 3 ML NEB RESP TX SCH ×2 (15:48→19:35)
[2022-06-02 17:35] LABS: Bilirubin,Urine Negative (Negative); Blood, Urine Negative (Negative); Glucose,Urine (UA) Negative (Negative); Ketones,Urine Negative (Negative); Nitrite,Urine Negative (Negative); Protein,Urine Negative (Negative); RBC,Urine <1 /HPF (0-4); Urine Appearance Clear (Clear); Urine Color Yellow (Yellow); Urine Specific Gravity 1.015 (1.001-1.035)
[2022-06-02 17:36] LABS: Urine Urobilinogen 0.2 eU/dL (<2.0)
[2022-06-02] MEDS ORDERED: INSULIN GLARGINE 100 UNIT/ML SUBCUT SCH (21:00)
[2022-06-02] MEDS: PIPERACILLIN/TAZOBACTAM 3,375 MG in SODIUM CHLORIDE 0.9% 100 ML IV SCH (21:57)
[2022-06-02] MEDS: GABAPENTIN 400 MG CAPSULE PEG SCH (21:58)
[2022-06-02] MEDS: FERROUS SULFATE 325 MG TABLET PO SCH (21:58)
[2022-06-02] MEDS: oxyCODONE/ACETAMINOPHEN 5-325 MG TABLET PO PRN (21:58)
[2022-06-02] MEDS: MECLIZINE 25 MG TABLET PO SCH (21:58)
[2022-06-02] MEDS ORDERED: VANCOMYCIN INJ 1,000 MG in SODIUM CHLORIDE 0.9% 250 ML IV SCH (23:00)
[2022-06-03] MEDS: ALBUTEROL/IPRATROPIUM 3 ML NEB RESP TX SCH ×4 (00:20→21:42)
[2022-06-03] MEDS: VANCOMYCIN INJ 1,250 MG in SODIUM CHLORIDE 0.9% 250 ML IV SCH ×2 (02:30→16:04)
[2022-06-03 06:05] LABS: Basophils % 0.5 % (0.0-0.8); Eosinophils # 0.1 10*3/uL (0.0-0.87); Eosinophils % 1.1 % (0.00-10.9); Hematocrit 28.4 VOL% (42.0-52.0); Hemoglobin 9.1 GM/DL (14.0-18.0); Immature Granulocytes % 0.4 %; Immature Granulocytes Absolute 0.03 #; Lymphocytes # 2.7 10*3/uL (1.4-4.0); Lymphocytes % 36.4 % (21.2-54.2); Mean Corpuscular Volume 101.4 FL (87-102); Mean Platelet Volume 8.8 FL (9.6-12.0); Monocytes # 0.8 10*3/uL (0.11-0.8); Monocytes % 10.6 % (1.7-12.7); Platelet Count 247 T/CUMM (130-400); Red Cell Distribution Width 17.9 % (9.3-17.3); White Blood Count 7.4 T/CUMM (4-12)
[2022-06-03 06:26] LABS: Calcium 8.6 MG/DL (8.5-10.1); Eosinophils 3 % (0-10); Hypochromia Slight; Lymphocytes 37 % (20-55); Osmolality,Calculated 277.8 MOS/KG (273-304); Platelet Estimate Adequate; Potassium 3.4 MMOL/L (3.5-5.1); Total Cells Counted 100
[2022-06-03] MEDS: PIPERACILLIN/TAZOBACTAM 3,375 MG in SODIUM CHLORIDE 0.9% 100 ML IV SCH ×3 (06:35→22:18)
[2022-06-03] MEDS: GABAPENTIN 400 MG CAPSULE PEG SCH ×2 (09:39→22:18)
[2022-06-03] MEDS: INSULIN LISPRO 100 UNIT/ML SUBCUT SCH ×4 (09:39→21:47)
[2022-06-03] MEDS: PANTOPRAZOLE 40 MG TABLET PO SCH (09:39)
[2022-06-03] MEDS: oxyCODONE/ACETAMINOPHEN 5-325 MG TABLET PO PRN ×2 (09:39→22:30)
[2022-06-03] MEDS: FERROUS SULFATE 325 MG TABLET PO SCH ×2 (09:39→22:18)
[2022-06-03] MEDS: CHOLECALCIFEROL 1,000 UNIT TABLET PEG SCH (09:39)
[2022-06-03] MEDS ORDERED: MECLIZINE 25 MG TABLET PO SCH (10:00)
[2022-06-03] MEDS: MECLIZINE 25 MG TABLET PO SCH ×3 (12:01→22:18)
[2022-06-03] MEDS: ENOXAPARIN 40 MG/0.4 ML SYRINGE SUBCUT SCH (16:04)
[2022-06-03] MEDS ORDERED: INSULIN GLARGINE 100 UNIT/ML SUBCUT SCH (23:30)
[2022-06-04] MEDS: ALBUTEROL/IPRATROPIUM 3 ML NEB RESP TX SCH ×4 (01:07→20:26)
[2022-06-04] MEDS: VANCOMYCIN INJ 1,250 MG in SODIUM CHLORIDE 0.9% 250 ML IV SCH (03:01)
[2022-06-04] MEDS: PIPERACILLIN/TAZOBACTAM 3,375 MG in SODIUM CHLORIDE 0.9% 100 ML IV SCH ×3 (04:17→22:39)
[2022-06-04 05:11] LABS: Basophils % 0.3 % (0.0-0.8); Eosinophils # 0.1 10*3/uL (0.0-0.87); Eosinophils % 0.5 % (0.00-10.9); Hematocrit 28.9 VOL% (42.0-52.0); Hemoglobin 9.3 GM/DL (14.0-18.0); Immature Granulocytes % 0.5 %; Immature Granulocytes Absolute 0.05 #; Lymphocytes # 1.6 10*3/uL (1.4-4.0); Lymphocytes % 14.4 % (21.2-54.2); Mean Corpuscular HGB Conc 32.2 GM/DL (32-36); Mean Corpuscular Volume 100.3 FL (87-102); Mean Platelet Volume 8.6 FL (9.6-12.0); Monocytes # 0.9 10*3/uL (0.11-0.8); Monocytes % 8.6 % (1.7-12.7); Neutrophils % 75.7 % (38.7-73.9); Platelet Count 238 T/CUMM (130-400); Red Blood Count 2.88 MC/CUMM (3.8-5.5); Red Cell Distribution Width 18.1 % (9.3-17.3)
[2022-06-04 05:37] LABS: Anisocytosis 1+; Eosinophils 1 % (0-10); Lymphocytes 16 % (20-55); Total Cells Counted 100
[2022-06-04 05:38] LABS: Hypochromia Slight; Platelet Estimate Normal; Target Cells Slight
[2022-06-04 05:43] LABS: Calcium 9.1 MG/DL (8.5-10.1); Potassium 3.8 MMOL/L (3.5-5.1)
[2022-06-04] MEDS ORDERED: PROMETHAZINE 25 MG/1 ML VIAL IM ONE (07:00)
[2022-06-04] MEDS ORDERED: MEPERIDINE 50 MG/1 ML VIAL IM ONE (07:00)
[2022-06-04] MEDS ORDERED: LIDOCAINE 1% 20 ML VIAL MISC INJ ONE (07:30)
[2022-06-04] MEDS ORDERED: LIDOCAINE 2% VISCOUS 100 ML BOTTLE SWISH/SPIT ONE (07:30)
[2022-06-04] MEDS ORDERED: MIDAZOLAM 2 MG/2 ML VIAL IV ONE (07:30)
[2022-06-04] MEDS ORDERED: LIDOCAINE 2% 20 ML VIAL RESP TX ONE (07:30)
[2022-06-04] MEDS: PANTOPRAZOLE 40 MG TABLET PO SCH (10:00)
[2022-06-04] MEDS: FERROUS SULFATE 325 MG TABLET PO SCH ×2 (10:00→22:39)
[2022-06-04] MEDS: CHOLECALCIFEROL 1,000 UNIT TABLET PEG SCH (10:00)
[2022-06-04] MEDS: MECLIZINE 25 MG TABLET PO SCH ×2 (10:01→22:39)
[2022-06-04] MEDS: GABAPENTIN 400 MG CAPSULE PEG SCH ×2 (10:01→22:38)
[2022-06-04] MEDS: INSULIN LISPRO 100 UNIT/ML SUBCUT SCH ×4 (11:12→22:02)
[2022-06-04] MEDS: oxyCODONE/ACETAMINOPHEN 5-325 MG TABLET PO PRN ×2 (12:36→22:46)
[2022-06-04] MEDS: ENOXAPARIN 40 MG/0.4 ML SYRINGE SUBCUT SCH (13:08)
[2022-06-04] MEDS: VANCOMYCIN INJ 1,500 MG in SODIUM CHLORIDE 0.9% 500 ML IV SCH (21:00)
[2022-06-04] MEDS: INSULIN GLARGINE 100 UNIT/ML SUBCUT SCH (22:39)
[2022-06-05] MEDS: ALBUTEROL/IPRATROPIUM 3 ML NEB RESP TX SCH ×4 (00:52→20:26)
[2022-06-05] MEDS: PIPERACILLIN/TAZOBACTAM 3,375 MG in SODIUM CHLORIDE 0.9% 100 ML IV SCH ×3 (04:30→22:28)
[2022-06-05 05:30] LABS: Basophils % 0.2 % (0.0-0.8); Eosinophils # 0.1 10*3/uL (0.0-0.87); Eosinophils % 1.1 % (0.00-10.9); Hemoglobin 8.8 GM/DL (14.0-18.0); Immature Granulocytes % 0.4 %; Immature Granulocytes Absolute 0.03 #; Lymphocytes # 2.3 10*3/uL (1.4-4.0); Lymphocytes % 27.9 % (21.2-54.2); Mean Corpuscular HGB Conc 31.4 GM/DL (32-36); Mean Corpuscular Volume 103.7 FL (87-102); Mean Platelet Volume 9.1 FL (9.6-12.0); Monocytes # 0.8 10*3/uL (0.11-0.8); Monocytes % 10.2 % (1.7-12.7); Neutrophils % 60.2 % (38.7-73.9); Platelet Count 229 T/CUMM (130-400); Red Cell Distribution Width 18.3 % (9.3-17.3); White Blood Count 8.1 T/CUMM (4-12)
[2022-06-05 05:52] LABS: Calcium 8.8 MG/DL (8.5-10.1); Osmolality,Calculated 284.3 MOS/KG (273-304); Potassium 3.7 MMOL/L (3.5-5.1)
[2022-06-05 06:03] LABS: Lymphocytes 19 % (20-55); Total Cells Counted 100
[2022-06-05 06:04] LABS: Hypochromia Slight; Microcytosis Slight; Platelet Estimate Adequate
[2022-06-05] MEDS: INSULIN LISPRO 100 UNIT/ML SUBCUT SCH ×4 (07:51→23:45)
[2022-06-05] MEDS: CHOLECALCIFEROL 1,000 UNIT TABLET PEG SCH (08:07)
[2022-06-05] MEDS: GABAPENTIN 400 MG CAPSULE PEG SCH ×2 (08:07→22:19)
[2022-06-05] MEDS: FERROUS SULFATE 325 MG TABLET PO SCH ×2 (08:08→22:18)
[2022-06-05] MEDS: PANTOPRAZOLE 40 MG TABLET PO SCH (08:08)
[2022-06-05] MEDS: oxyCODONE/ACETAMINOPHEN 5-325 MG TABLET PO PRN ×2 (08:08→22:44)
[2022-06-05] MEDS: MECLIZINE 25 MG TABLET PO SCH ×2 (08:12→22:18)
[2022-06-05] MEDS: VANCOMYCIN INJ 1,500 MG in SODIUM CHLORIDE 0.9% 500 ML IV SCH (12:56)
[2022-06-05] MEDS: ENOXAPARIN 40 MG/0.4 ML SYRINGE SUBCUT SCH (13:01)
[2022-06-05] MEDS: INSULIN GLARGINE 100 UNIT/ML SUBCUT SCH (22:48)
[2022-06-06] MEDS: VANCOMYCIN INJ 1,500 MG in SODIUM CHLORIDE 0.9% 500 ML IV SCH ×2 (01:32→09:42)
[2022-06-06] MEDS: PIPERACILLIN/TAZOBACTAM 3,375 MG in SODIUM CHLORIDE 0.9% 100 ML IV SCH ×2 (04:28→11:58)
[2022-06-06 06:13] LABS: Basophils % 0.5 % (0.0-0.8); Eosinophils # 0.2 10*3/uL (0.0-0.87); Hematocrit 27.3 VOL% (42.0-52.0); Hemoglobin 8.8 GM/DL (14.0-18.0); Immature Granulocytes % 0.2 %; Immature Granulocytes Absolute 0.01 #; Lymphocytes # 2.1 10*3/uL (1.4-4.0); Lymphocytes % 35.1 % (21.2-54.2); Mean Corpuscular HGB Conc 32.2 GM/DL (32-36); Mean Corpuscular Volume 100.4 FL (87-102); Monocytes # 0.7 10*3/uL (0.11-0.8); Monocytes % 10.8 % (1.7-12.7); Neutrophils % 50.4 % (38.7-73.9); Platelet Count 209 T/CUMM (130-400); Red Blood Count 2.72 MC/CUMM (3.8-5.5); Red Cell Distribution Width 18.1 % (9.3-17.3); White Blood Count 6.1 T/CUMM (4-12)
[2022-06-06 06:32] LABS: Calcium 8.9 MG/DL (8.5-10.1); Osmolality,Calculated 280.4 MOS/KG (273-304); Potassium 3.9 MMOL/L (3.5-5.1)
[2022-06-06 06:52] LABS: Anisocytosis 1+; Eosinophils 4 % (0-10); Lymphocytes 34 % (20-55); Macrocytosis 1+; Platelet Estimate Normal; Total Cells Counted 100
[2022-06-06] MEDS: ALBUTEROL/IPRATROPIUM 3 ML NEB RESP TX SCH ×3 (07:04→13:12)
[2022-06-06] MEDS: INSULIN LISPRO 100 UNIT/ML SUBCUT SCH ×2 (09:29→12:20)
[2022-06-06] MEDS: MECLIZINE 25 MG TABLET PO SCH (09:35)
[2022-06-06] MEDS: PANTOPRAZOLE 40 MG TABLET PO SCH (09:35)
[2022-06-06] MEDS: FERROUS SULFATE 325 MG TABLET PO SCH (09:36)
[2022-06-06] MEDS: CHOLECALCIFEROL 1,000 UNIT TABLET PEG SCH (09:37)
[2022-06-06] MEDS: GABAPENTIN 400 MG CAPSULE PEG SCH (09:37)
[2022-06-06] MEDS: oxyCODONE/ACETAMINOPHEN 5-325 MG TABLET PO PRN (09:38)
[2022-06-06 12:02] VITALS: BP 132/81
[2022-06-06] MEDS: ENOXAPARIN 40 MG/0.4 ML SYRINGE SUBCUT SCH (15:46)
[2022-06-06] MEDS ORDERED: CEFUROXIME 500 MG TABLET PO SCH (21:00)
== END 2022-06-06 16:58 | disposition home health service (06) | DRG 177 ==
LOC: N.ED 08:41 → SUATTDRO 11:00 → N.EDINP 11:00 → N.TELES 12:35
PROVIDERS: ADMIT Internal Medicine; ATTEND Family Medicine

== ENCOUNTER 2022-06-24 17:09 | Inpatient (IN) ==
[2022-06-24] MEDS ORDERED: SODIUM CHLORIDE 0.9% 500 ML IV STA (17:22)
[2022-06-24 17:34] LABS: Basophils % 0.2 % (0.0-0.8); Eosinophils # 0.1 10*3/uL (0.0-0.87); Eosinophils % 0.6 % (0.00-10.9); Hematocrit 27.3 VOL% (42.0-52.0); Hemoglobin 8.9 GM/DL (14.0-18.0); Immature Granulocytes % 0.2 %; Immature Granulocytes Absolute 0.02 #; Lymphocytes # 1.8 10*3/uL (1.4-4.0); Lymphocytes % 21.8 % (21.2-54.2); Mean Corpuscular HGB Conc 32.6 GM/DL (32-36); Mean Platelet Volume 9.1 FL (9.6-12.0); Monocytes # 0.9 10*3/uL (0.11-0.8); Monocytes % 10.9 % (1.7-12.7); Neutrophils % 66.3 % (38.7-73.9); Platelet Count 237 T/CUMM (130-400); Red Blood Count 2.73 MC/CUMM (3.8-5.5); Red Cell Distribution Width 16.6 % (9.3-17.3); White Blood Count 8.3 T/CUMM (4-12)
[2022-06-24] MEDS ORDERED: PIPERACILLIN/TAZOBACTAM 3,375 MG in SODIUM CHLORIDE 0.9% 100 ML IV STA (17:39)
[2022-06-24 17:56] LABS: Albumin 2.8 G/DL (3.4-5.0); Bilirubin,Total 0.4 MG/DL (0.20-1.00); Calcium 8.5 MG/DL (8.5-10.1); Osmolality,Calculated 284.3 MOS/KG (273-304); Potassium 3.9 MMOL/L (3.5-5.1); Total Protein 6.5 G/DL (6.4-8.2)
[2022-06-24] MEDS ORDERED: VANCOMYCIN INJ 1,500 MG in SODIUM CHLORIDE 0.9% 500 ML IV STA (18:00)
[2022-06-24 18:02] LABS: Anisocytosis 1+; Eosinophils 1 % (0-10); Lymphocytes 22 % (20-55); Macrocytosis Slight; Platelet Estimate Normal; Total Cells Counted 100
[2022-06-24 18:02] LABS: Bilirubin,Urine Negative (Negative); Blood, Urine Trace mg/dL (Negative); Glucose,Urine (UA) Negative (Negative); Ketones,Urine Negative (Negative); Nitrite,Urine Negative (Negative); Protein,Urine 30 mg/dL (Negative); Urine Appearance Clear (Clear); Urine Color Yellow (Yellow); Urine Specific Gravity 1.015 (1.001-1.035); Urine Urobilinogen 0.2 eU/dL (<2.0); Urine pH 6.5 (4.5-8.0)
[2022-06-24 18:05] LABS: Bacteria,Urine Occasional /HPF (Few); Hyaline Casts,Urine 1 /LPF (0-3); Mucus,Urine Occasional /LPF (Occasional); RBC,Urine 2 /HPF (0-4); Squamous Epithelial Cell,Urine Occasional /HPF (0-10)
[2022-06-24 18:13] LABS: Barbiturates Screen,Urine Negative (Negative); Benzodiazepines Screen,Urine Negative (Negative); Cannabinoid Screen,Urine Negative (Negative); Opiate Screen,Urine Negative (Negative); Phencyclidine Screen,Urine Negative (Negative)
[2022-06-24] MEDS ORDERED: ACETAMINOPHEN 325 MG TABLET PEG PRN (19:31)
[2022-06-24] MEDS ORDERED: GLUCAGON 1 MG VIAL IM PRN (19:31)
[2022-06-24] MEDS ORDERED: hydrALAZINE 20 MG/1 ML VIAL IV PRN (19:31)
[2022-06-24] MEDS ORDERED: DEXTROSE 10% 250 ML BAG IV PRN (19:31)
[2022-06-24] MEDS ORDERED: PANTOPRAZOLE 40 MG VIAL IV STA (19:36)
[2022-06-24] MEDS ORDERED: ASPIRIN 325 MG TABLET PEG STA (19:37)
[2022-06-24] MEDS ORDERED: ENOXAPARIN 80 MG/0.8 ML SYRINGE SUBCUT STA (19:39)
[2022-06-24] MEDS: cefTRIAXone 1,000 MG in SODIUM CHLORIDE 0.9% 100 ML IV SCH (22:32)
[2022-06-24] MEDS: FUROSEMIDE 40 MG/4 ML VIAL IV SCH (22:33)
[2022-06-24] MEDS: GABAPENTIN 400 MG CAPSULE PEG SCH (22:33)
[2022-06-24] MEDS: AZITHROMYCIN INJ 500 MG in SODIUM CHLORIDE 0.9% 250 ML IV SCH (22:34)
[2022-06-25] MEDS: ACETYLCYSTEINE 20% 800 MG/4 ML VIAL RESP TX SCH ×4 (01:38→18:43)
[2022-06-25] MEDS: ALBUTEROL 2.5 MG/3 ML NEB RESP TX SCH ×4 (01:38→18:43)
[2022-06-25] MEDS: INSULIN REGULAR 100 UNIT/ML SUBCUT SCH ×5 (02:34→20:00)
[2022-06-25 04:40] LABS: Basophils # 0.1 10*3/uL (0.0-0.2); Basophils % 0.8 % (0.0-0.8); Eosinophils # 0.1 10*3/uL (0.0-0.87); Eosinophils % 0.9 % (0.00-10.9); Hematocrit 27.4 VOL% (42.0-52.0); Hemoglobin 8.7 GM/DL (14.0-18.0); Immature Granulocytes % 0.3 %; Immature Granulocytes Absolute 0.02 #; Lymphocytes # 2.8 10*3/uL (1.4-4.0); Lymphocytes % 35.6 % (21.2-54.2); Mean Corpuscular HGB Conc 31.8 GM/DL (32-36); Mean Corpuscular Volume 101.5 FL (87-102); Mean Platelet Volume 9.1 FL (9.6-12.0); Monocytes # 0.9 10*3/uL (0.11-0.8); Monocytes % 11.7 % (1.7-12.7); Neutrophils % 50.7 % (38.7-73.9); Platelet Count 241 T/CUMM (130-400); Red Cell Distribution Width 16.6 % (9.3-17.3); White Blood Count 7.9 T/CUMM (4-12)
[2022-06-25 04:58] LABS: Eosinophils 2 % (0-10); Hypochromia 1+; Lymphocytes 30 % (20-55); Total Cells Counted 100
[2022-06-25 04:59] LABS: Macrocytosis Slight; Ovalocytes Slight; Polychromasia Slight
[2022-06-25 05:00] LABS: Platelet Estimate Normal
[2022-06-25 05:01] LABS: Calcium 8.8 MG/DL (8.5-10.1); Osmolality,Calculated 280.4 MOS/KG (273-304); Potassium 3.2 MMOL/L (3.5-5.1); Risk Ratio 2.72; VLDL Cholesterol 19.8 MG/DL
[2022-06-25] MEDS ORDERED: MAGNESIUM SULF RIDER 2 GM/50 ML PREMIX IV PRN (06:11)
[2022-06-25] MEDS ORDERED: MAGNESIUM SULF RIDER 4 GM/100 ML PREMIX IV PRN (06:11)
[2022-06-25] MEDS ORDERED: POTASSIUM PHOS/SOD PHOS POWDER 250 MG PACK PEG ONE (10:00)
[2022-06-25] MEDS: GABAPENTIN 400 MG CAPSULE PEG SCH ×2 (10:50→20:00)
[2022-06-25] MEDS: FUROSEMIDE 40 MG/4 ML VIAL IV SCH (10:53)
[2022-06-25] MEDS: PANTOPRAZOLE 40 MG VIAL IV SCH (10:55)
[2022-06-25] MEDS ORDERED: oxyCODONE/ACETAMINOPHEN 5-325 MG TABLET PO PRN (13:18)
[2022-06-25] MEDS: ATROPINE 1 % OPH SOLN 5 ML BOTTLE RIGHT EYE SCH ×3 (14:27→20:00)
[2022-06-25 16:53] LABS: % Iron Saturation 11.2 % (18-50); Ferritin 248.8 ng/mL (26-388)
[2022-06-25 16:56] LABS: Folate > 24.00 NG/ML (5.38-24.0); Vitamin B12 328 PG/ML (211-911)
[2022-06-25] MEDS: cefTRIAXone 1,000 MG in SODIUM CHLORIDE 0.9% 100 ML IV SCH (19:57)
[2022-06-25] MEDS: AZITHROMYCIN INJ 500 MG in SODIUM CHLORIDE 0.9% 250 ML IV SCH (20:38)
[2022-06-26] MEDS: ALBUTEROL 2.5 MG/3 ML NEB RESP TX SCH ×4 (01:20→19:28)
[2022-06-26] MEDS: ACETYLCYSTEINE 20% 800 MG/4 ML VIAL RESP TX SCH ×4 (01:20→19:28)
[2022-06-26 04:40] LABS: Basophils % 0.5 % (0.0-0.8); Eosinophils # 0.1 10*3/uL (0.0-0.87); Eosinophils % 0.9 % (0.00-10.9); Hematocrit 25.4 VOL% (42.0-52.0); Hemoglobin 8.2 GM/DL (14.0-18.0); Immature Granulocytes % 0.3 %; Immature Granulocytes Absolute 0.02 #; Lymphocytes # 2.2 10*3/uL (1.4-4.0); Lymphocytes % 29.8 % (21.2-54.2); Mean Corpuscular HGB Conc 32.3 GM/DL (32-36); Mean Corpuscular Volume 99.6 FL (87-102); Mean Platelet Volume 8.9 FL (9.6-12.0); Monocytes # 0.8 10*3/uL (0.11-0.8); Monocytes % 11.2 % (1.7-12.7); Neutrophils % 57.3 % (38.7-73.9); Platelet Count 250 T/CUMM (130-400); Red Blood Count 2.55 MC/CUMM (3.8-5.5); Red Cell Distribution Width 16.3 % (9.3-17.3); White Blood Count 7.5 T/CUMM (4-12)
[2022-06-26 05:06] LABS: Calcium 8.7 MG/DL (8.5-10.1); Potassium 3.2 MMOL/L (3.5-5.1)
[2022-06-26] MEDS: POTASSIUM CHLORIDE RIDER 10 MEQ/100 ML PREMIX IV PRN ×4 (05:15→19:32)
[2022-06-26 05:21] LABS: Eosinophils 4 % (0-10); Lymphocytes 23 % (20-55); Total Cells Counted 100
[2022-06-26 05:22] LABS: Hypochromia Slight; Platelet Estimate Normal
[2022-06-26 05:25] LABS: Phosphorous 4.2 MG/DL (2.5-4.9)
[2022-06-26] MEDS ORDERED: MEPERIDINE 50 MG/1 ML VIAL IM ONE (07:00)
[2022-06-26] MEDS ORDERED: PROMETHAZINE 25 MG/1 ML VIAL IM ONE (07:00)
[2022-06-26] MEDS ORDERED: LIDOCAINE 2% VISCOUS 100 ML BOTTLE SWISH/SPIT ONE (07:30)
[2022-06-26] MEDS ORDERED: MIDAZOLAM 2 MG/2 ML VIAL IV ONE (07:30)
[2022-06-26] MEDS ORDERED: LIDOCAINE 1% 20 ML VIAL MISC INJ ONE (07:30)
[2022-06-26] MEDS ORDERED: LIDOCAINE 2% 20 ML VIAL RESP TX ONE (07:30)
[2022-06-26] MEDS: ASPIRIN CHEW 81 MG TABLET PO SCH (10:02)
[2022-06-26] MEDS: methylPREDNISolone SOD SUC 40 MG/1 ML VIAL IV SCH ×2 (10:03→22:20)
[2022-06-26] MEDS: GABAPENTIN 400 MG CAPSULE PEG SCH ×2 (10:03→20:26)
[2022-06-26] MEDS: PANTOPRAZOLE 40 MG VIAL IV SCH (10:03)
[2022-06-26] MEDS: INSULIN REGULAR 100 UNIT/ML SUBCUT SCH ×4 (10:04→20:28)
[2022-06-26] MEDS: ATROPINE 1 % OPH SOLN 5 ML BOTTLE RIGHT EYE SCH ×4 (10:05→20:27)
[2022-06-26] MEDS: FERRIC GLUCONATE COMPLEX 125 MG in SODIUM CHLORIDE 0.9% 100 ML IV SCH (12:49)
[2022-06-26] MEDS: POTASSIUM PHOS/SOD PHOS POWDER 250 MG PACK PO SCH (20:26)
[2022-06-26] MEDS: cefTRIAXone 1,000 MG in SODIUM CHLORIDE 0.9% 100 ML IV SCH (21:07)
[2022-06-26] MEDS: AZITHROMYCIN INJ 500 MG in SODIUM CHLORIDE 0.9% 250 ML IV SCH (22:21)
[2022-06-27] MEDS: ALBUTEROL 2.5 MG/3 ML NEB RESP TX SCH ×2 (00:40→07:13)
[2022-06-27] MEDS: ACETYLCYSTEINE 20% 800 MG/4 ML VIAL RESP TX SCH ×2 (00:40→07:13)
[2022-06-27 05:04] LABS: Calcium 9.2 MG/DL (8.5-10.1); Osmolality,Calculated 288.5 MOS/KG (273-304)
[2022-06-27 05:08] LABS: Hematocrit 26.9 VOL% (42.0-52.0); Hemoglobin 8.5 GM/DL (14.0-18.0); Immature Granulocytes % 0.4 %; Immature Granulocytes Absolute 0.03 #; Lymphocytes # 0.9 10*3/uL (1.4-4.0); Lymphocytes % 11.7 % (21.2-54.2); Mean Corpuscular HGB Conc 31.6 GM/DL (32-36); Mean Corpuscular Volume 101.9 FL (87-102); Mean Platelet Volume 9.4 FL (9.6-12.0); Monocytes # 0.1 10*3/uL (0.11-0.8); Monocytes % 1.9 % (1.7-12.7); Platelet Count 257 T/CUMM (130-400); Red Blood Count 2.64 MC/CUMM (3.8-5.5); Red Cell Distribution Width 16.7 % (9.3-17.3); White Blood Count 7.3 T/CUMM (4-12)
[2022-06-27] MEDS: FERRIC GLUCONATE COMPLEX 125 MG in SODIUM CHLORIDE 0.9% 100 ML IV SCH (08:40)
[2022-06-27] MEDS: INSULIN REGULAR 100 UNIT/ML SUBCUT SCH ×2 (08:41→12:27)
[2022-06-27] MEDS: PANTOPRAZOLE 40 MG VIAL IV SCH (08:42)
[2022-06-27] MEDS: methylPREDNISolone SOD SUC 40 MG/1 ML VIAL IV SCH (08:42)
[2022-06-27] MEDS: ATROPINE 1 % OPH SOLN 5 ML BOTTLE RIGHT EYE SCH ×2 (08:43→12:27)
[2022-06-27] MEDS: POTASSIUM PHOS/SOD PHOS POWDER 250 MG PACK PO SCH (08:43)
[2022-06-27] MEDS: ASPIRIN CHEW 81 MG TABLET PO SCH (08:43)
[2022-06-27] MEDS: GABAPENTIN 400 MG CAPSULE PEG SCH (08:43)
[2022-06-27] MEDS ORDERED: glipiZIDE 10 MG TABLET PEG SCH (09:00)
[2022-06-27] MEDS ORDERED: ROSUVASTATIN 20 MG TABLET PEG SCH (09:00)
[2022-06-27 12:18] VITALS: BP 133/64
== END 2022-06-27 16:18 | disposition home or self-care (01) | DRG 177 ==
LOC: N.ED 17:09 → N.EDINP 19:31 → N.TELES 06-25 11:36
PROVIDERS: ADMIT Internal Medicine; ATTEND Internal Medicine